=== PATIENT | male | born 1950 | race Caucasian/White ===

== ENCOUNTER → 2016-07-17 | Outpatient (CLI) | payer OTHER ==
[~2016-07-17] MED LIST: AMIO200T PO; ASPI81TA11 PO; COQ-100C2 PO; FLUD.1 PO; HYDR-3516 PO; LIPI40TA PO; PANT40TA3 PO; PRAD150C PO; THERM PO; VENTAER INH; ZOLO50TA PO
--- NOTE | 2016-07-17 12:41 | MG ---
cc: RAVINDER SMITH M.D., DALIA M.D. Lab No: [id number] Date: 07/17/2016 Age: 66 Sex: M Outpatient study with photic stimulation. No hyperventilation. EEG is awake, drowsy. MRI 05/16/2015 showed some diffusion weighted abnormality in the anterior right frontal cortex significant for acute/subacute infarct. He has a history of stroke, COPD, abdominal aortic aneurysm, on anticoagulation, atrial fibrillation, hyperlipidemia. Current medicines are aspirin, albuterol, Lipitor, amiodarone, Pradaxa, hydrocortisone, Zoloft, pantoprazole. DESCRIPTION OF RECORD EKG does look artifactual, cannot determine if sinr8 or not. I do not appreciate any P-waves. However the overall background when there is no movement shows alpha rhythm of 8 Hz, 20 microvolts. There is quite a bit of movement in the feet dispersing artifact throughout. Photic stimulation causes more artifact but there is a mild driving response. No epileptiform features. Hyperventilation was not done. IMPRESSION Overall normal-appearing EEG, however, a lot of artifact but normal alpha rhythm at times without any gross epileptiform features. Clinical correlation. Emani Warner MD DF/VIOLET /12:27 PM /12:35 PM
== END ==
LOC: HEEG 07:25
PROVIDERS: ATTEND Psychiatry & Neurology Vascular Neurology
DX: R41.3 Other amnesia (principal)
CPT/HCPCS: 95819

== ENCOUNTER 2017-05-22 07:11 | Inpatient (IN) | payer OTHER, MEDICARE ==
[2017-05-22] VITALS (9 sets, daily range): BP systolic 104–137; BP diastolic 63–76; PULSE 82–93; RESP 16–18; TEMP 97.6–98.2; O2SAT 93–99
[~2017-05-22] VITALS: Ht 177.8 cm; Wt 85.0 kg
[~2017-05-22 07:11] MED LIST changes: -ASPI81TA11 PO; +ASPI81TA23 PO
[2017-05-22] MEDS ORDERED: IOHEXOL 350 MG/ML 50 ML BTL (for Cath Lab) OTHER ONE (07:12)
[2017-05-22] MEDS: NS 1000P @30 MLS/HR (KVO) IV SCH (07:30)
[2017-05-22] MEDS ORDERED: DICL50TA3 PO (08:11)
[2017-05-22] MEDS ORDERED: COQ-50CA2 PO (08:11)
[2017-05-22] MEDS ORDERED: GABA300C5 PO (08:11)
[2017-05-22] MEDS ORDERED: NITR1SUB3 SL (08:11)
[2017-05-22] MEDS ORDERED: OMEP20TA93 PO (08:11)
[2017-05-22 08:13] LABS: BASOPHIL # 0.2 TH/MM3 (0-0.2); BASOPHIL % 0.9 % (0.0-2.0); EOSINOPHIL # 0.3 TH/MM3 (0-0.4); EOSINOPHIL % 1.7 % (0.0-4.0); HEMATOCRIT 41.1 % (39.0-51.0); LYMPH % 16.8 % (9.0-44.0); LYMPHOCYTE # 2.9 TH/MM3 (1.0-4.8); MEAN CELL VOLUME 89.7 FL (80.0-100.0); MEAN CORPUSCULAR HEMOGLOBIN 30.8 PG (27.0-34.0); MEAN CORPUSCULAR HGB CONC 34.4 % (32.0-36.0); MONO % 10.3 % (0.0-8.0); NEUT % 70.3 % (16.0-70.0); PLATELET COUNT 409 TH/MM3 (150-450); RED BLOOD COUNT 4.58 MIL/MM3 (4.50-5.90); RED CELL DISTRIBUTION WIDTH 13.6 % (11.6-17.2); WHITE BLOOD COUNT 17.1 TH/MM3 (4.0-11.0)
[2017-05-22 08:16] LABS: APTT (PATIENT) 22.2 SEC (24.3-30.1); PROTHROMBIN TIME - PATIENT 10.9 SEC (9.8-11.6)
[2017-05-22 08:17] LABS: HEMO FLAGS AUTO DIFF
[2017-05-22 08:24] LABS: BICARBONATE 25.6 MEQ/L (21.0-32.0); POTASSIUM 4.1 MEQ/L (3.5-5.1)
[2017-05-22 08:53] LABS: PLATELET ESTIMATE SMEAR HIGH (NORMAL); PLATELET MORPHOLOGY CLUMPED (NORMAL); SCAN/DIFF AUTO DIFF CONFIRMED
[2017-05-22] MEDS ORDERED: VERAPAMIL HCL 5 MG/2 ML VIAL ONE (09:51)
[2017-05-22] MEDS ORDERED: HEPARIN SODIUM - IV 10,000 UNITS/10 ML VIAL ONE (09:52)
[2017-05-22] MEDS ORDERED: NITROGLYCERIN INJ 5 ML ONE (09:52)
[2017-05-22] MEDS ORDERED: MIDAZOLAM HCL 2 MG/2 ML VIAL ONE (09:52)
[2017-05-22] MEDS ORDERED: HEPARIN-NS/PF INJ 1,000 ML ONE (09:56)
[2017-05-22] MEDS ORDERED: NITROGLYCERIN 0.4 MG SL 25 TABS/BTL SL ONE (10:43)
[2017-05-22] MEDS ORDERED: NITROGLYCERIN-D5W 50 MG/250 ML 250 ML ONE (10:48)
--- NOTE | 2017-05-22 10:58 | CATHPROC ---
[facility] HIS Report Study Information Study Number Admission Scheduled Start Study Start [id number] May 22 2017 7:11AM 05/22/2017 May 22 2017 9:49AM [facility] Cardiac Catheterization Admit Source Facility Department Other [facility] [employer] Physician and Clinical Staff Initial Harmeet Montiel Auto Body Painter Sherlyn Mckinley RN Other cathlab, cathlab Recorder Mamta Mace,OUTSOLE HANDLER TECH2 Scrub Pal Rose RCIS(BS) Procedures Performed Procedure Location (Site) Vessel Name Coronary Angiograms LCA Left Coronary Coronary Angiograms RCA Right Coronary L Heart Cath Equipment Time Nut Blanker Operator Description Size Mfg Part Number Used/Scraped TRANSDUCER, TRUWAVE [id number] 09:56 FELIX RASHID * Used W/STOCKCOCK *[id number] 10:30 [employer] MEDICAL VASCADE, FR5 CLOSURE SYSTEM FR 5 Used *[id number] INTRODUCER SET, 10:16 [employer] FR 5 [id number] *[id number] Used MICROPUNCTURE, STIFFENED [id number] *[id number] *[id number] 09:56 [employer] INDUSTRIES PACK, CCL CUSTOM * Used *[id number] 09:56 [employer] MEDICAL SHEATH, FR5.5 PRELUDE 11CM FR 5 [id number] Used [id number] 09:56 [employer] WIRE, 3MMJ .035 180CM 180CM Used *[id number] 09:56 NAMIC MANIFOLD, 4 PORT * Used *[id number] 09:56 [employer] OMNIPAQUE, 350 MG, 150ML 150ML [id number] Used [id number] 09:56 Amara BLANKET,WARM AIR CCL * Used *[id number] History: Current Medications Medication Dosage/Unit Route Frequency Last Date/Time Taken ASA NTG SL Statins (any) History: Allergies Allergy Reaction CRESTOR rosuvastatin albuterol History: Risk Factors Family History of Hypertension Dyslipidemia Previous FL Previous Heart Failure Premature CAD Yes No No No No Prior Valve Prior PCI Prior CABG Surgery No No No Cerebrovascular Peripheral Artery Chronic Lung On Dialysis Diabetes Disease Disease Disease No Yes No Yes No History: Arrhythmias Selection Items Atrial fibrillation History: Other Disease Selection Items COPD HTN History: Other Current Smoker Method Packs a Day Years Used Pack Years Yes Cigarettes 1 50 50 Labs Hgb (g/dl) Hct (%) RBC (MIL/MM3) WBC (l/cumm) Platelets (thousands) 11.60-17.00 35.00-51.00 4.00-5.90 4.00-11.00 150.00-450.00 14.0 41 4.5 17.1 409 Glucose (mg/dl) BUN (mg/dl) Creatinine (mg/dl) BUN:Creatinine (1:x) 74.00-106.00 7.00-18.00 0.50-1.30 10.00-20.00 84 13 0.8 16.3 Na (meq/l) K (meq/l) Cl (meq/l) CO2 (mmol/L) Ca (mg/dl) 136.00-145.00 3.50-5.10 98.00-107.00 21.00-32.00 8.50-10.10 139 4.1 106 25.6 8.8 PT (sec) PTT (sec) INR (PTT:PT) 9.80-11.60 24.30-30.10 0.90-1.10 10.9 22.2 1 Medication Medication Total Dose (Bolus/Oral) Medication Total Dosage/Unit 1% XYLOCAINE 20 mL FENTANYL 100 mcg NITROGLYCERIN S/L 0.4 mg VERSED 0.5 mg Medications (Bolus/Oral) Medication Time Given Dosage/Unit Administered By Reason 05/22/2017 10:12:22 FENTANYL 50 mcg Sherlyn Mckinley AM 50 mcg FENTANYL given in lab by Sherlyn Mckinley RN in Left Forearm via Peripheral IV. Ordered by Harmeet Crow 05/22/2017 10:13:45 VERSED 0.5 mg Sherlyn Mckinley AM 0.5 mg VERSED given in lab by Sherlyn Mckinley RN in Left Forearm via Peripheral IV. Ordered by Harmeet Nicholson 05/22/2017 10:14:44 1% XYLOCAINE 20 mL Harmeet Escoto AM 20 mL 1% XYLOCAINE given in lab by Harmeet Escoto in Right Groin via Subcutaneous. Ordered by Harmeet Crow 05/22/2017 10:43:04 FENTANYL 50 mcg Sherlyn Mckinley AM 50 mcg FENTANYL given in lab by Sherlyn Mckinley RN in Left Forearm via Peripheral IV. Ordered by Harmeet Crow 05/22/2017 10:43:34 NITROGLYCERIN S/L 0.4 mg Sherlyn Mckinley AM 0.4 mg NITROGLYCERIN S/L given in lab by Sherlyn Mckinley RN via Sublingual. Ordered by Shante Escoto Medication (Drip) Medication Time Given Dosage/Unit Concentration/Unit Diluent (ml) Solution IV Solutions 05/22/2017 9:53:19 AM 0 mL (IV) 500 NaCl .9 IV Solutions given in lab by Sherlyn Mckinley RN in Left Forearm via Peripheral IV. Pump/Drip Flow = 20 ml/hr using NaCl .9. Ordered by Harmeet Escoto 05/22/2017 10:50:51 NITROGLYCERIN DRIP 33.333 mcg/min 50 mg 250 D5W AM 33.333 mcg/min NITROGLYCERIN DRIP given in lab by Sherlyn Mckinley RN in Left Forearm via Peripheral IV. Pump/Drip Flow = 10 ml/hr using D5W with a concentration of 50 mg in 250 ml. Ordered by Harmeet Escoto Initial Case Assessment Cardiovascular HR NIBP 84 127/74 Edema Present Skin color Skin None Normal Warm Dry Circulatory - Right Pulses Dorsalis Pedis Femoral d 1 Scale (0,1,2,3,4,d) Circulatory - Left Pulses Dorsalis Pedis Femoral d 1 Scale (0,1,2,3,4,d) Neurological State Oriented to time-place- Alert Moves all extremities person Respiration - General Respiration Rate SpO2 (%) (B/min) 18 99 Initial Case Assessment Cardiovascular HR NIBP 86 159/97 Edema Present Skin color Skin None Normal Warm Dry Circulatory - Right Pulses Dorsalis Pedis Femoral d 1 Scale (0,1,2,3,4,d) Circulatory - Left Pulses Dorsalis Pedis Femoral d 1 Scale (0,1,2,3,4,d) Neurological State Oriented to time-place- Alert Moves all extremities person Respiration - General Respiration Rate SpO2 (%) (B/min) 16 98 Chronological Log Time Study Chronological Log 9:51:08 Patient arrived via Bed. 9:51:09 Patient Name, D.O.B, / Armband Verified By R.N. 9:51:10 Consent signed by the physician and the patient and verified by the [employer] staff. 9:53:08 Pre-op and post- op instructions given; patient acknowledges understanding of instructions. 9:53:08 Verbal Stimulation=2 Physical Stimulation=2 Airway=2 Respiration=2 TOTAL=8. (0=absent, 1=li mited, 2=present) 9:53:12 Patient has been NPO for More than 6Hrs. 9:53:13 Skin Breakdown- 9:53:15 Jalil Prominences Protected 9:53:18 A # 22 IV was noted in the Forearm (left). Grade = 0 IV Solutions given in lab by Sherlyn Mckinley, LAVERNE in Left Forearm via Peripheral IV. Pump/Drip Flow = 20 ml/hr using 9:53:19 NaCl .9. Ordered by Harmeet Escoto 9:53:19 History and physical on the chart or being dictated. Vitals capture started with the following parameters, Patient=Adult, Interval=5 min, Initial Pr qzyqcs=129 mmHg, 9:59:41 Deflation Rate=5 mmHg, Cuff placed on Left Arm 10:00:05 Reference ECG taken 10:00:19 HR=84 bpm, IVHC=185/74 mmhg, SpO2=99.0 %, Resp=18 B/min, Pain=0, Ignacio=10, Reid=2 Assessment: Initial Case, HR=84 BPM, WEEF=957/74 mmhg, Edema=None, Color=Normal, Skin = Warm, D ry Right Pulses: Anand Ped=d, Femoral=1 10:00:32 Left Pulses: Anand Ped=d, Femoral=1 Neurological: State=Alert, Ox3, CAGLE Respiration: Resp=18 B/min, SpO2=99 % 10:05:14 HR=85 bpm, IAYX=143/76 mmhg, SpO2=99.0 %, Resp=17 B/min, Pain=0, Ignacio=10, Reid=2 10:05:30 Bilateral groins prepped with 2% chlorhexidine, and draped after a 3 minute waiting time. 10:06:45 Pressure channel 1 zeroed. 10:10:15 HR=86 bpm, SFUN=662/66 mmhg, SpO2=99.0 %, Resp=15 B/min, Pain=0, Ignacio=10, Reid=2 50 mcg FENTANYL given in lab by Sherlyn Mckinley, RN in Left Forearm via Peripheral IV. Ordered by Harmeet Escoto 10:12:22 G. 0.5 mg VERSED given in lab by Sherlyn Mckinley, LAVERNE in Left Forearm via Peripheral IV. Ordered b Harmeet Post 10:13:45 G. Time Out. Correct patient, correct procedure, correct physician, power injector not loaded with contrast with surgical 10:14:06 team present. Time Out Concurred by MD and individual staff in procedure. 10:14:21 Case Start 20 mL 1% XYLOCAINE given in lab by Harmeet Escoto in Right Groin via Subcutaneous. Ordered by Jevon, 10:14:44 Harmeet De La Torre. 10:15:12 HR=82 bpm, GRIU=170/74 mmhg, SpO2=97.0 %, Resp=8 B/min, Pain=0, Ignacio=10, Reid=2 10:15:54 Access site was Right Femoral Artery. A INTRODUCER SET, MICROPUNCTURE, STIFFENED FR 5 was advanced into the Fem Art (right) using the Modified 10:16:02 Seldinger technique. A SHEATH, FR5.5 PRELUDE 11CM FR 5 was exchanged in the Fem Art (right). This was necessary in o rder to achieve 10:16:24 vascular hemostasis. 10:17:53 An injection in the Fem Art (right) was made through the SHEATH, FR5.5 PRELUDE 11CM FR 5. A JR 4.0 INFINITI CATHETER FR 5 was advanced over a wire. OMNIPAQUE, 350 MG, 150ML 150ML was us ed for 10:18:47 injections. Recorded Pressure: LV, HR=88, Condition=Condition 1 10:19:28 (Left Ventricle) LV 140/3/10 Recorded Pressure: LV, HR=86, Condition=Condition 1 10:19:39 (Left Ventricle) LV 125/4/9 Recorded Pressure: LV, Ao, HR=87, Condition=Condition 1 10:19:42 (Left Ventricle) LV 122/4/9, (Aorta) Ao 113/64/85 10:20:15 HR=86 bpm, NSHQ=867/69 mmhg, SpO2=94 %, Resp=17 B/min, Pain=0, Ignacio=10, Reid=2 10:21:22 The RCA was injected and visualized at various angles. OMNIPAQUE, 350 MG, 150ML 150ML used . 10:22:54 Catheter was removed A JL 4.0 INFINITI CATHETER FR 5 was advanced over a wire. OMNIPAQUE, 350 MG, 150ML 150ML was us ed for 10:22:55 injections. Recorded Pressure: Ao, HR=88, Condition=Condition 1 10:23:37 (Aorta) Ao 125/66/91 10:24:15 The LCA was injected and visualized at various angles. OMNIPAQUE, 350 MG, 150ML 150ML used . 10:25:19 HR=87 bpm, CAST=562/65 mmhg, SpO2=95 %, Resp=12 B/min, Pain=0, Ignacio=10, Reid=2 10:29:06 Catheter was removed 10:29:14 Catheter(s) removed without difficulty 10:29:16 VASCADE, FR5 CLOSURE SYSTEM FR 5 placement in the Fem Art (right) 10:30:18 HR=87 bpm, PKWV=051/81 mmhg, SpO2=97.0 %, Resp=17 B/min, Pain=0, Ignacio=10, Reid=2 10:32:03 Case End 10:32:06 No case complications noted. 10:32:07 Cine recording checked. 10:33:07 Bedside Report will be given. 10:33:10 Implantable Device card placed in patient's chart. 10:33:14 A Left Heart Cath was performed. 10:33:43 Sterile dressing applied to site 10:35:19 HR=84 bpm, OMBL=043/81 mmhg, SpO2=97.0 %, Resp=18 B/min, Pain=0, Ignacio=10, Reid=2 10:35:26 Vitals capture stopped. 50 mcg FENTANYL given in lab by Sherlyn Mckinley, RN in Left Forearm via Peripheral IV. Ordere d by Harmeet Escoto 10:43:04 G. 10:43:34 0.4 mg NITROGLYCERIN S/L given in lab by Sherlyn Mckinley, RN via Sublingual. Ordered by Harmeet Garcia Vitals capture started with the following parameters, Patient=Adult, Interval=5 min, Initial P qikketp=660 mmHg, 10:43:46 Deflation Rate=5 mmHg, Cuff placed on Left Arm 10:44:23 HR=86 bpm, BWTZ=690/97 mmhg, SpO2=98 %, Resp=16 B/min, Pain=0, Ignacio=10, Reid=2 Assessment: Initial Case, HR=86 BPM, KPDX=242/97 mmhg, Edema=None, Color=Normal, Skin = Warm, Dry Right Pulses: Anand Ped=d, Femoral=1 10:46:45 Left Pulses: Anand Ped=d, Femoral=1 Neurological: State=Alert, Ox3, CAGLE Respiration: Resp=16 B/min, SpO2=98 % 10:49:22 HR=86 bpm, GMLC=152/83 mmhg, SpO2=97 %, Resp=16 B/min, Pain=0, Ignacio=10, Reid=2 33.333 mcg/min NITROGLYCERIN DRIP given in lab by Sherlyn Mckinley, RN in Left Forearm via Per ipheral IV. 10:50:51 Pump/Drip Flow = 10 ml/hr using D5W with a concentration of 50 mg in 250 ml. Ordered by Harmeet Solorio 10:51:38 Vitals capture stopped. 10:54:45 Patient moved to [facility] End Study - Contrast Media Used In Study Contrast Total Opened (mL) Total Used (mL) Total Wasted (mL) Omnipaque 50 50 0 End Study - Maximum Contrast Load Max Contrast Load (mL) 498.9 End Study - Radiation Exposure Fluoro Time (minutes) 2.5 End Study - Patient Disposition Complications Transferred To Telemetry Bed
--- NOTE | 2017-05-22 11:21 | MA ---
cc: HARMEET CELAYA DO DATE 05/22/2017 PROCEDURE Left heart catheterization, coronary angiogram, moderate sedation 20 minutes. PREPROCEDURE DIAGNOSIS Unstable angina. POSTPROCEDURE DIAGNOSIS Severe multivessel coronary artery disease. MEDICATIONS 1. Fentanyl 100 mcg 2. Versed 0.5 mg 3. Nitro sublingual 4. Nitro drip CONTRAST 50 cc FLUOROSCOPY 2.5 minutes ANESTHESIA Moderate sedation 20 minutes ESTIMATED BLOOD LOSS 10 CC PROCEDURAL SUMMARY Francisco Javier Swartz is a pleasant 67-year-old male who I see in the office for unstable angina. Because of his high-risk features, it was felt that he should undergo cardiac catheterization in lieu of stress testing. The risks, benefits and alternatives were explained to him and he consented as such. He was brought to the lab and prepped in the usual sterile fashion. The right femoral artery was accessed using a modified Seldinger technique and placement of a 5-Albanian sheath. This was easily aspirated and flushed. A JR-4 was advanced over a J-wire to the ascending aorta and across the aortic valve for measurement of left ventricular pressure. JR-4 was pulled back across the aortic valve showing no significant gradient of aortic stenosis. JR-4 was used for selective angiography of the right coronary artery system. This was exchanged out for a JL-4 which was used for selective angiography of the left coronary artery system. JL-4 was removed over a J-wire. A Vascade closure was then placed in the right femoral for closure of his arteriotomy site. Postprocedure, the patient started having left arm pain, jaw pain and chest pain. He was given one nitroglycerin and then started on a nitroglycerin drip. After the nitroglycerin, started on a nitroglycerin drip, he no longer had chest pain, jaw pain or arm pain. 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 IMPRESSIONS 1. Left main normal sized vessel with adequate reflux and no significant disease. It bifurcates into an LAD and Circumflex. 2. LAD 99% occluded in the proximal portion as a takeoff of the first diagonal. Distally it has good runoff. It gives off one major diagonal which has a 90% stenosis in the ostium. 3. Left circumflex. A normal size vessel with mild luminal irregularities throughout. It gives off one large obtuse marginal with an 80-90% lesion in the proximal portion. 4. The RCA is 100% occluded in the proximal portion with collaterals noted from the left side. The right coronary artery does supply some collaterals to the distal LAD. 5. LVEDP 9. IMPRESSIONS 1. Severe multivessel coronary artery disease 2. Peripheral artery disease 3. Unstable angina RECOMMENDATIONS 1. Mr. Swartz appears to have severe multivessel coronary artery disease and will be recommended coronary artery bypass grafting. 2. CT surgery will be consulted for consideration of CABG. 3. Because of his significant chest pain postoperatively, he has been started on a nitroglycerin drip and I feel that he should stay in the hospital for the procedure. 4. He may need a heparin drip depending on if he stabilizes on nitroglycerin. 5. Further recommendations will be made after CT surgery evaluation. Thank you for allowing me to see Francisco Javier Swartz. If there are any questions, please do not hesitate to call. Harmeet Celaya DO VGP/DJL /10:56 AM /11:15 AM
[2017-05-22] MEDS ORDERED: oxyCODONE/ACETAMINOPHEN 5 MG/325 MG TAB PO PRN ×2 (13:00)
[2017-05-22] MEDS ORDERED: NITROGLYCERIN-D5W 50 MG/250 ML 250 ML IV PRN (13:00)
[2017-05-22] MEDS: GABAPENTIN 300 MG CAP PO SCH ×2 (13:00→17:50)
--- NOTE | 2017-05-22 13:05 | MH ---
cc: HARMEET CELAYA DO DATE OF ADMISSION: 05/22/2017 CHIEF COMPLAINT Unstable angina/chest pain. HISTORY OF CHIEF COMPLAINT Francisco Javier Swartz is a pleasant 67-year-old male whom I see in the office, who was having significant chest pain and angina which radiated to his jaw and left arm. He was taking nitroglycerin nightly. Since then I placed him on Imdur and Norvasc and this helped somewhat but he was still taking a significant amount of nitroglycerin. Because of this he underwent cardiac catheterization on May 22, 2017. During the cardiac catheterization he was found to have multivessel coronary artery disease with a 99% occluded LAD, a diagonal with 90% disease, left circumflex with an 80-90% lesion, RCA 100% occluded. Because of this he was recommended cardiothoracic surgery. Postprocedure he started having significant chest pain radiating to his left arm and jaw. He was given nitroglycerin sublingual which helped somewhat and so then he was started on a nitroglycerin drip. Postprocedure on 10 mcg per minute of nitroglycerin he is doing well without complaints. PAST MEDICAL HISTORY 1. Coronary artery disease. 2. Peripheral artery disease. 3. Atrial fibrillation. 4. History of prostate cancer. 5. COPD. 6. History of CVA. 7. Emphysema. 8. History of lung cancer (May 2016). PAST SURGICAL HISTORY 1. Cardiac catheterization as above. 2. Colonoscopy. 3. Cystoscopy. 4. Lip surgery. 5. Left sided lobectomy for lung cancer (May 2016). ALLERGIES 1. ALBUTEROL. 2. CRESTOR. MEDICATIONS 1. Pradaxa 150 mg b.i.d. (last taken May 19, 2017). 2. Lipitor 40 mg every night. 3. Nitro sublingual as needed. 4. Aspirin 81 mg daily. 5. Diclofenac 50 mg daily. 6. Hydrocodone/acetaminophen 5/325 every 4 hours as needed for pain. 7. Gabapentin 300 mg b.i.d. 8. Zoloft 50 mg daily. 9. Omeprazole 20 mg daily. 10. Coenzyme Q10; 100 mg daily. FAMILY HISTORY Denies sudden cardiac within the family. SOCIAL HISTORY The patient drinks occasionally. He smokes one-pack of cigarettes a day. REVIEW OF SYSTEMS 14-systems were reviewed including osteopathic pertinent positives and negatives above, otherwise negative. PHYSICAL EXAMINATION VITAL SIGNS: Temperature 97.6, heart rate 88, blood pressure 134/75, respirations 17, pulse ox 99% on room air. GENERAL: The patient appears well, in no acute distress, alert awake and oriented x3. HEENT: Extraocular muscles intact. Mucous membranes moist. NECK: Supple. No JVD at 45 degrees. No carotid bruits heard bilaterally. Carotid upstroke is brisk in nature. HEART: Heart is regular rate and rhythm. Positive first and second heart sounds with a 1/6 crescendo-decrescendo murmur to the right sternal border. LUNGS: Lungs have decreased breath sounds bilaterally but no overt wheezes, rales or rhonchi. ABDOMEN: Abdomen is soft, nontender, nondistended. No organomegaly noted. EXTREMITIES: Extremities have decreased pulses bilaterally with the right lower extremity pulse being somewhat greater than the left. NEUROLOGIC: No focal deficits. SKIN: Warm, dry and intact. OSTEOPATHIC: No kyphoscoliosis, lordosis or paraspinal tender points. LABORATORY FINDINGS Hemoglobin 14.1, hematocrit 41.1, platelets 409. INR 1.0, potassium 4.1, BUN 13, creatinine 0.83. IMPRESSION 1. Severe multivessel coronary artery disease. 2. Unstable angina requiring nitroglycerin drip. 3. History of lung cancer status post lobectomy (May 2016). 4. Peripheral artery disease. 5. History of atrial fibrillation. 6. History of CVA. 7. Echocardiogram (April 18, 2017): Ejection fraction of 55-60%, moderate tricuspid regurgitation, mild mitral regurgitation, mild aortic regurgitation, grade 1 diastolic dysfunction, mild pulmonary hypertension. RECOMMENDATIONS 1. Mr. Swartz presented with unstable angina to my office and has since undergone cardiac catheterization. During this he was found to have multivessel disease. Because of his chest pain at rest I have since started him on a nitroglycerin drip and I feel that he needs to stay in the hospital inpatient until he is able to undergo surgery. 2. CT surgery has been consulted and they will see him for consideration of coronary artery bypass grafting. 3. He will continue on a nitroglycerin drip at this time and this may be titrated up to help with chest pain. 4. He may need to be placed on a heparin drip if he does have further chest pain. 5. Further recommendations will be made after seen by CT surgery. Thank you for allowing me to see Francisco Javier Swartz, if there are any questions please do not hesitate to call. Harmeet Celaya DO VGP/TLL /12:33 PM /12:50 PM
[2017-05-22] MEDS: MORPHINE SULFATE 2 MG/ML INJ IV PUSH PRN ×2 (13:14→16:39)
[2017-05-22] MEDS ORDERED: METOPROLOL TARTRATE 25 MG TAB PO SCH (15:00)
[2017-05-22] MEDS ORDERED: CHLORHEXIDINE GLUCONATE 4% SOLN 120 ML BTL TOPICAL SCH (15:00)
[2017-05-22] MEDS ORDERED: DEXTROSE 50% IN WATER 50 ML VIAL(D50) IV PUSH PRN (15:00)
[2017-05-22] MEDS ORDERED: ceFAZolin 2 GM PREMIX 50 ML IV SCH (15:00)
[2017-05-22] MEDS ORDERED: SODIUM CHLORIDE 0.9% FLUSH 10 ML FLUSH IV FLUSH PRN (15:00)
[2017-05-22] MEDS ORDERED: PAPAVERINE INJ 60 MG, NITROGLYCERIN INJ 100 MCG, DILTIAZEM INJ 100 MG in SODIUM CHLORID... IRRIGATION SCH (15:00)
[2017-05-22] MEDS ORDERED: CEFAZOLIN INJ 500 MG in SODIUM CHLORIDE 0.9% IRR BTL 500 ML IRRIGATION SCH (15:00)
[2017-05-22] MEDS ORDERED: INSULIN REGULAR (IV INFUSION) 100 UNITS in SODIUM CHLORIDE 0.9% INJ 99 ML IV PRN (15:00)
--- NOTE | 2017-05-22 15:02 | PD.CAR.PN ---
CVT Progress Note Subjective/Hospital Course: sts data discussed with pt and spouse RISK SCORES About the STS Risk Calculator Procedure: CAB Only Risk of Mortality: 1.301% Morbidity or Mortality: 15.857% Long Length of Stay: 5.43% Short Length of Stay: 40.82% Permanent Stroke: 1.765% Prolonged Ventilation: 11.969% DSW Infection: 0.429% Renal Failure: 1.978% Reoperation: 5.647% Objective: Vital Signs Date Time Temp Pulse Resp B/P (MAP) Pulse Ox O2 Delivery O2 Flow Rate FiO2 05/22/17 11:00 94 Room Air 05/22/17 07:59 97.6 88 17 134/75 (94) 99 Labs: Laboratory Tests Test 05/22/17 07:40 White Blood Count 17.1 TH/MM3 (4.0-11.0) Red Blood Count 4.58 MIL/MM3 (4.50-5.90) Hemoglobin 14.1 GM/DL (13.0-17.0) Hematocrit 41.1 % (39.0-51.0) Mean Corpuscular Volume 89.7 FL (80.0-100.0) Mean Corpuscular Hemoglobin 30.8 PG (27.0-34.0) Mean Corpuscular Hemoglobin Concent 34.4 % (32.0-36.0) Red Cell Distribution Width 13.6 % (11.6-17.2) Platelet Count 409 TH/MM3 (150-450) Mean Platelet Volume 8.1 FL (7.0-11.0) Neutrophils (%) (Auto) 70.3 % (16.0-70.0) Lymphocytes (%) (Auto) 16.8 % (9.0-44.0) Monocytes (%) (Auto) 10.3 % (0.0-8.0) Eosinophils (%) (Auto) 1.7 % (0.0-4.0) Basophils (%) (Auto) 0.9 % (0.0-2.0) Neutrophils # (Auto) 12.0 TH/MM3 (1.8-7.7) Lymphocytes # (Auto) 2.9 TH/MM3 (1.0-4.8) Monocytes # (Auto) 1.8 TH/MM3 (0-0.9) Eosinophils # (Auto) 0.3 TH/MM3 (0-0.4) Basophils # (Auto) 0.2 TH/MM3 (0-0.2) CBC Comment AUTO DIFF Differential Comment AUTO DIFF CONFIRMED Platelet Estimate HIGH (NORMAL) Platelet Morphology Comment CLUMPED (NORMAL) Prothrombin Time 10.9 SEC (9.8-11.6) Prothromb Time International Ratio 1.0 RATIO Activated Partial Thromboplast Time 22.2 SEC (24.3-30.1) Blood Urea Nitrogen 13 MG/DL (7-18) Creatinine 0.83 MG/DL (0.60-1.30) Random Glucose 84 MG/DL (74-106) Calcium Level 8.8 MG/DL (8.5-10.1) Sodium Level 139 MEQ/L (136-145) Potassium Level 4.1 MEQ/L (3.5-5.1) Chloride Level 106 MEQ/L (98-107) Carbon Dioxide Level 25.6 MEQ/L (21.0-32.0) Anion Gap 7 MEQ/L (5-15) Estimat Glomerular Filtration Rate 93 ML/MIN (>89) Result Diagram: 05/22/17 0740 05/22/17 0740 Alicia Morgan May 22, 2017 15:02
--- NOTE | 2017-05-22 16:45 | RADRPT ---
EXAM DATE/TIME: 05/22/2017 15:30 [facility] COMPARISON: No previous studies available for comparison. INDICATIONS : Pre op cardiac surgery. MEDICAL HISTORY : Hypercholesterolemia. Stroke. Gastroesophageal reflux disease. A-fib. COPD. AAA. Lung cancer. Prostat e cancer. Squamous cell cancer. SURGICAL HISTORY : Abdominal aortic aneurysm repair. Iliac stent. Left lung needle biopsy. Left lung removed. ENCOUNTER: Initial ACUITY: 1 day PAIN SCORE: 6/10 LOCATION: Bilateral legs. TECHNIQUE: Venous ultrasound of the left and right leg was performed from the inguinal ligament to the proximal calf. Real-time, color Doppler and spectral tracing, compression and augmentation techniques were us ed. FINDINGS: RIGHT LEG: There is normal compressibility of the deep venous system from the inguinal region to the proximal ca lf. No echogenic clot is seen in the lumen of the common femoral, femoral, popliteal, and posterior tibial veins. There is a normal response of the venous system to proximal and distal augmentation an d respiration. LEFT LEG: There is normal compressibility of the deep venous system from the inguinal region to the proximal ca lf. No echogenic clot is seen in the lumen of the common femoral, femoral, popliteal, and posterior tibial veins. There is a normal response of the venous system to proximal and distal augmentation an d respiration. CONCLUSION: No evidence of deep venous thrombosis within the lower extremities. Fidel Salazar MD on May 22, 2017 at 16:43 Board Certified Radiologist. This report was verified electronically.
--- NOTE | 2017-05-22 17:07 | RADRPT ---
EXAM DATE/TIME: 05/22/2017 15:58 [facility] COMPARISON: US VENOUS MAPPING,LOW EXT,BILAT, May 22, 2017, 15:38. INDICATIONS : Pre op cardiac surgery. MEDICAL HISTORY : Stroke. Gastroesophageal reflux disease. Hypercholesterolemia. A-fib. COPD. AAA. Lung cancer. Prostat e cancer. Squamous cell cancer. SURGICAL HISTORY : Abdominal aortic aneurysm repair. Iliac stent. Left lung needle biopsy. Left lung removed. ENCOUNTER: Initial ACUITY: 1 day PAIN SCORE: 4/10 LOCATION: Bilateral neck PEAK SYSTOLIC VELOCITIES (cm/sec): ICA/CCA RATIO: Right: 2.3 Left: 2.0 ICA: Right: 118 Left: 106 CCA: Right: 50 Left: 52 ECA: Right: 87 Left: 69 VERTEBRAL: Right: 77 antegrade Left: 58 antegrade Elevated flow velocities and ICA/CCA ratios have been found to correlate with increased degrees of vessel stenosis, calculated as percentage of diameter relative to a normal segment of distal ICA/CCA FINDINGS: RIGHT CAROTID: There is moderate atherosclerotic plaquing at the bifurcation. The waveform is within normal limits. LEFT CAROTID: There is moderate calcified atherosclerotic plaque at the bifurcation. The waveform is within normal limits. VERTEBRAL ARTERIES: Antegrade flow is seen in both vertebral arteries. MISCELLANEOUS: None. CONCLUSION: 1. Calcified atherosclerotic plaquing at the bifurcations. 2. Velocities would suggest possible stenosis on the right in the range of 50%. 3. No hemodynamically significant lesion identified on the left. Napoleon Youssef MD on May 22, 2017 at 17:03 Board Certified Radiologist. This report was verified electronically.
--- NOTE | 2017-05-22 17:21 | RADRPT ---
EXAM DATE/TIME: 05/22/2017 15:38 [facility] COMPARISON: US LEG BILATERAL VENOUS DOPPLER, May 22, 2017, 15:30. INDICATIONS : Pre op cardiac surgery. MEDICAL HISTORY : Hypercholesterolemia. Stroke. Gastroesophageal reflux disease. A-fib. COPD. AAA. Lung cancer. Prostat e cancer. Squamous cell cancer. SURGICAL HISTORY : Abdominal aortic aneurysm repair. Iliac stent. Left lung needle biopsy. Left lung removed. ENCOUNTER: Initial ACUITY: 1 day PAIN SCORE: 6/10 LOCATION: Bilateral legs. GREATER SAPHENOUS VEIN THIGH: PROXIMAL: Right 5 mm Left 7 mm MID: Right 3 mm Left 4 mm DISTAL: Right 2 mm Left 4 mm CALF: PROXIMAL: Right 2 mm Left 2 mm MID: Right 3 mm Left 3 mm DISTAL: Right 3 mm Left 2 mm FINDINGS: The venous system of the lower extremities are patent by color Doppler imaging. Measurements of the leg veins (in mm) are listed above. CONCLUSION: 1. Vein mapping as above. Napoleon Youssef MD on May 22, 2017 at 17:19 Board Certified Radiologist. This report was verified electronically.
--- NOTE | 2017-05-22 17:22 | MB ---
cc: SAL AMADOR MD DATE OF CONSULTATION: 05/22/2017 REASON FOR CONSULTATION: A 67-year-old male known to our service recently experiencing significant chest pain and angina which radiated to his Jaw and left arm, has been taking nitro on a regular basis. He was placed on Imdur and Norvasc by his office technologist. He was then brought in as an outpatient for cardiac catheterization which was completed today which showed multivessel disease 90-90% occluded LAD and diagonal with 90%. The left circ 80-90%. The RCA was 100% occluded. He has had a prior echocardiogram in Dr. Escoto's office which showed ejection fraction of 55%. We were consulted to evaluate for coronary artery bypass. The patient's primary care physician is Dr. Francisco Javier Suggs. 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 At that time he underwent left thoracotomy, left pneumonectomy, mediastinal lymph node dissection, 05/09/2016 with redo exploration for bleeding and repair of the pulmonary artery laceration on 05/10/[address] Villagran. The patient unfortunately had a stroke postoperatively had some left-sided hemiparesis and some speech deficit. The left hemiparesis has improved tremendously. He underwent an extensive rehabilitation. Other history includes atrial fibrillation, Bullous emphysema chronic obstructive pulmonary disease, CA of the prostate Peripheral arterial disease. PAST SURGICAL HISTORY: 1. Surgeries include right iliac stent. 2. He has had the above left thoracotomy and left pneumonectomy. 3. Colonoscopy. 4. Cystoscopy. 5. History of resection of squamous cell on the lower lip 6. Cataract surgery. ALLERGIES CRESTOR VENTOLIN MEDICATIONS home medications include 1. Aspirin. 2. Atorvastatin 3. Gabapentin 4. Hydrocodone. 5. Nitro 6. Prodaxa which his last dose was on the . FAMILY HISTORY: family history of myocardial infarction in his sister. SOCIAL HISTORY: The patient is , still continues to smoke one pack per day, no alcohol. REVIEW OF SYSTEMS IN GENERAL: No night sweats, fever, heat and cold intolerance. SKIN: No psoriasis, itching or hives. HEAD, EYES, EARS, NOSE, AND THROAT: No blurred vision, hearing loss. RESPIRATORY: No cough, shortness of breath. CARDIOVASCULAR SYSTEM: As above in HPI. GASTROINTESTINAL: No diarrhea, vomiting. GENITOURINARY: No burning frequency, urgency CENTRAL NERVOUS SYSTEM: No history of transient ischemic attack, cerebrovascular accident, seizure disorder. ENDOCRINOLOGY: No history of diabetes. PHYSICAL EXAMINATION: IN GENERAL: On exam blood pressure 130/70, heart rate of 88, O2 sat 99 on room air. IN GENERAL: Patient is awake, alert, no acute distress. HEAD, EYES, EARS, NOSE, AND THROAT: Head is normocephalic, atraumatic. Pupils equal and reactive. He has very slight right-sided facial droop. LUNGS: Clear to auscultation. No wheezes, rales or rhonchi. CARDIOVASCULAR SYSTEM: S1-S2 regular rate and rhythm. 1/6 systolic murmur at rest, on his right sternal border. ABDOMEN: Soft, nontender. No masses or organomegaly. EXTREMITIES: Decreased pulses bilaterally. The right being greater than the left. NEUROLOGICALLY: Alert and oriented times three. Very faint supervisor packing decreased on the left upper extremity. LABORATORY FINDINGS Shows Hemoglobin 14, hematocrit of 41, white cell count of 17, platelet count 409, sodium 139, potassium 4.1, BUN 13, creatinine 0.83, INR 1.0. Radiological exams still pending. Chest x-ray, Ultrasound and vein mapping. IMPRESSION 1. This is a gentleman with chest pain, coronary artery disease status post heart catheterization multivessel disease, ejection fraction 55%. At this time the cath films have been evaluated by Dr. Sal Amador. Plan will be for off-pump coronary artery bypass graft x3 with endoscopic harvesting, left atrial appendage excision in the a.m. He has been off as per ductus for 3 days at this time. He will need continued physical therapy postoperatively. 2. He also has; History of left lung cancer post left thoracotomy, left pneumonectomy which was non metastatic. At that time he was followed by [facility]. We will recheck his pulmonary function testing, further planning as per Dr. Sal Amador. Dictated by MAYTE Darnell Sal MCCOLLUM/gerardo /3:18 PM /7:40 AM
[2017-05-22 18:12] LABS: BLOOD, URINE NEG (NEG); GLUCOSE,URINE NEG (NEG); KETONE, URINE NEG (NEG); NITRITE,URINE NEG (NEG); URINE COLOR LIGHT-YELLOW (YELLW/STRAW)
[2017-05-22 18:16] LABS: COMMENT (UR) CULT NOT INDICATED; CULTURE IF INDICATED CULT NOT INDICATED
[2017-05-22] MEDS: ATORVASTATIN 40 MG TAB PO SCH (20:13)
[2017-05-22] MEDS ORDERED: SODIUM CHLORIDE 0.9% FLUSH 10 ML FLUSH IV FLUSH SCH (21:00)
--- NOTE | 2017-05-22 22:17 | RADRPT ---
EXAM DATE/TIME: 05/22/2017 21:51 [facility] COMPARISON: CT PULMONARY ANGIOGRAM, May 22, 2016, 16:20. CHEST PA & LAT, June 08, 2016, 18:15. INDICATIONS : Pre op CABG. Evaluate for pneumothorax, pneumonia, or communicable diseases. MEDICAL HISTORY : Carcinoma, lung. Chronic obstructive pulmonary disease. Gastroesophageal reflux disease. SURGICAL HISTORY : Thoracotomy ENCOUNTER: Initial ACUITY: 1 day PAIN SCORE: 0/10 LOCATION: Bilateral chest FINDINGS: There is opacification of the left hemithorax. There is shift of the heart and mediastinal structures towards the left. This presumably from prior left pneumonectomy. There is a calcified granuloma in t he right upper lung. The right lung is free of focal consolidation. CONCLUSION: Status post left pneumonectomy. Right lung is grossly clear. Garo Silva MD on May 22, 2017 at 22:13 Board Certified Radiologist. This report was verified electronically.
[2017-05-22 22:27] LABS: HEMOGLOBIN A1a 1.1 %; HEMOGLOBIN A1b 0.9 %; HEMOGLOBIN Ao 84.7 %; HEMOGLOBIN P3 5.3 %
[2017-05-23] VITALS (18 sets, daily range): BP systolic 98–144; BP diastolic 51–69; PULSE 76–93; RESP 14–22; TEMP 97.5–98.6; O2SAT 94–100
[2017-05-23] MEDS ORDERED: POVIDONE IODINE 5% (ANTISEPSIS KIT) 4 APPLICATIONS EACH NARE PRN (02:45)
[2017-05-23] MEDS ORDERED: CHLORHEXIDINE GLUCONATE 2 % 1 PACK (2 CLOTHS) TOPICAL PRN (02:45)
[2017-05-23] MEDS ORDERED: LACTATED RINGER'S 1000 ML IV PRN (02:45)
[2017-05-23 05:10] LABS: BASOPHIL % 0.3 % (0.0-2.0); EOSINOPHIL # 0.2 TH/MM3 (0-0.4); EOSINOPHIL % 2.3 % (0.0-4.0); HEMATOCRIT 38.2 % (39.0-51.0); LYMPH % 18.8 % (9.0-44.0); LYMPHOCYTE # 1.7 TH/MM3 (1.0-4.8); MEAN CELL VOLUME 88.5 FL (80.0-100.0); MEAN CORPUSCULAR HEMOGLOBIN 32.4 PG (27.0-34.0); MONO % 11.1 % (0.0-8.0); NEUT % 67.5 % (16.0-70.0); PLATELET COUNT 332 TH/MM3 (150-450); RED BLOOD COUNT 4.32 MIL/MM3 (4.50-5.90); RED CELL DISTRIBUTION WIDTH 13.5 % (11.6-17.2); WHITE BLOOD COUNT 8.9 TH/MM3 (4.0-11.0)
[2017-05-23 05:15] LABS: BICARBONATE 25.4 MEQ/L (21.0-32.0); POTASSIUM 3.8 MEQ/L (3.5-5.1)
[2017-05-23 05:22] LABS: HEMO FLAGS AUTO DIFF; MEAN CORPUSCULAR HGB CONC 36.6 % (32.0-36.0)
[2017-05-23] MEDS ORDERED: VANCOMYCIN HCL 1000 MG VIAL ONE (06:11)
[2017-05-23] MEDS ORDERED: ceFAZolin 2 GM PREMIX 50 ML ONE (06:11)
[2017-05-23] MEDS ORDERED: HEPARIN SODIUM - IV 10,000 UNITS/10 ML VIAL ONE (06:12)
[2017-05-23] MEDS ORDERED: HEPARIN SODIUM - SQ 10,000 UNITS/ML VIAL ONE ×2 (06:55→07:20)
[2017-05-23] MEDS: NS 1000P @30 MLS/HR (KVO) IV SCH (07:30)
[2017-05-23 07:50] LABS: SCAN/DIFF AUTO DIFF CONFIRMED
[2017-05-23] MEDS ORDERED: POTASSIUM CHLORIDE 40 MEQ/20 ML VIAL ONE (08:00)
[2017-05-23] MEDS ORDERED: PANTOPRAZOLE SOD 20 MG DELAYED RELEASE TAB PO SCH (09:00)
[2017-05-23] MEDS ORDERED: ASPIRIN EC 81 MG TABEC PO SCH (09:00)
[2017-05-23] MEDS ORDERED: DEXMEDETOMIDINE HCL 200 MCG/2 ML VIAL ONE (10:27)
[2017-05-23] MEDS ORDERED: ceFAZolin INJ 1,000 MG VIAL ONE (11:25)
[2017-05-23] MEDS ORDERED: LACTATED RINGER'S 1000 ML INJ 500 ML IV PRN (11:48)
[2017-05-23] MEDS: DOBUTamine PREMIX DRIP 250 ML IV SCH (11:48)
[2017-05-23] MEDS ORDERED: Post-op Orders (for Pharmacy) MISC OTHER ONE (12:00)
[2017-05-23] MEDS ORDERED: ACETAMINOPHEN 650 MG SUPP RECTAL PRN (12:00)
[2017-05-23] MEDS ORDERED: NORMOSOL R INJ 2,000 ML IV ONE (12:00)
[2017-05-23] MEDS ORDERED: MAGNESIUM SULFATE INJ 2 GM in SODIUM CHLORIDE 0.9% INJ 100 ML IV PRN ×4 (12:00)
[2017-05-23] MEDS ORDERED: MORPHINE SULFATE 4 MG/ML INJ IV PUSH PRN (12:00)
[2017-05-23] MEDS ORDERED: MIDAZOLAM HCL 2 MG/2 ML VIAL IV ONE (12:00)
[2017-05-23] MEDS ORDERED: POTASSIUM CHLORIDE 20 MEQ CONTROLLED RELEASE TAB PO PRN ×2 (12:00)
[2017-05-23] MEDS ORDERED: PROTAMINE SULFATE 250 MG/25 ML VIAL IV ONE (12:00)
[2017-05-23] MEDS ORDERED: PHENYLEPH/NS 1000 MCG/10 ML SYR IV ONE (12:00)
[2017-05-23] MEDS ORDERED: HEPARIN SODIUM - SQ 10,000 UNITS/ML VIAL SQ ONE (12:00)
[2017-05-23] MEDS ORDERED: NITROGLYCERIN-D5W 50 MG/250 ML 250 ML IV PRN (12:00)
[2017-05-23] MEDS ORDERED: ePHEDrine/NS 25 MG/5 ML SYR IV ONE (12:00)
[2017-05-23] MEDS ORDERED: VECURONIUM BROMIDE 10 MG VIAL IV ONE (12:00)
[2017-05-23] MEDS ORDERED: ONDANSETRON HCL 4 MG/2 ML VIAL IV PUSH PRN (12:00)
[2017-05-23] MEDS ORDERED: DEXMEDETOMIDINE INJ 200 MCG in SODIUM CHLORIDE 0.9% INJ 50 ML IV PRN (12:00)
[2017-05-23] MEDS ORDERED: CLEVIDIPINE INJ 50 ML IV PRN (12:00)
[2017-05-23] MEDS ORDERED: CALCIUM CHLORIDE 10% SOLN 1 GRAM/10 ML SYR IV ONE (12:00)
[2017-05-23] MEDS ORDERED: DEXTROSE 50% IN WATER 50 ML VIAL(D50) IV PUSH PRN (12:00)
[2017-05-23] MEDS ORDERED: RESP: RACEPINEPHRINE 2.25% 0.5 ML NEB NEB PRN (12:00)
[2017-05-23] MEDS ORDERED: ACETAMINOPHEN 325 MG TAB PO PRN (12:00)
[2017-05-23] MEDS ORDERED: RESP: ALBUTEROL 2.5 MG/IPRATROPIUM 0.5 MG NEB (PRN) NEB (12:00)
[2017-05-23] MEDS ORDERED: POTASSIUM CHLOR 20 MEQ PREMIX 100 ML IV PRN ×3 (12:00)
[2017-05-23] MEDS ORDERED: PHENYLEPHRINE HCL 10 MG/ML VIAL IV ONE (12:00)
[2017-05-23] MEDS ORDERED: DOPamine INJ PREMIX 500 ML IV PRN (12:00)
[2017-05-23] MEDS ORDERED: SODIUM BICARBONATE 8.4% SOLN 50 MEQ/50 ML VIAL IV PUSH PRN ×2 (12:00)
[2017-05-23] MEDS ORDERED: ARTIFICIAL TEARS OPTH OINT 3.5 APPLIC/3.5 GM TUBO EACH EYE ONE (12:00)
[2017-05-23] MEDS ORDERED: ALBUMIN 5% INJ 250 ML IV PRN (12:00)
[2017-05-23] MEDS ORDERED: CALCIUM CHLORIDE 10% 1 GRAM/10 ML VIAL IV PUSH PRN (12:00)
[2017-05-23] MEDS ORDERED: SODIUM CHLORIDE 0.9% FLUSH 10 ML FLUSH IV FLUSH PRN (12:00)
[2017-05-23] MEDS ORDERED: hydrALAZINE HCL 20 MG/ML VIAL IV PUSH PRN (12:00)
[2017-05-23] MEDS ORDERED: MAGNESIUM SULFATE 1 GM/2 ML VIAL IV ONE (12:00)
[2017-05-23] MEDS ORDERED: METOPROLOL TARTRATE 5 MG/5 ML VIAL IV PUSH PRN (12:00)
[2017-05-23] MEDS ORDERED: fentaNYL CITRATE 2500 MCG/50 ML VIAL IV ONE (12:00)
[2017-05-23] MEDS ORDERED: MEPERIDINE HCL 25 MG/ML VIAL IV PUSH PRN (12:00)
--- NOTE | 2017-05-23 12:51 | RADRPT ---
EXAM DATE/TIME: 05/23/2017 12:37 [facility] COMPARISON: CHEST SINGLE AP, May 25, 2016, 5:11. INDICATIONS : Post CABG. MEDICAL HISTORY : Carcinoma, lung. Chronic obstructive pulmonary disease. SURGICAL HISTORY : Pneumonectomy. ENCOUNTER: Initial ACUITY: 1 day PAIN SCORE: Non-responsive. LOCATION: Bilateral chest FINDINGS: Patient status post CABG. Support devices are in place. There is good aeration of the right lung with some mild atelectasis in the right lung base. The left hemithorax remains completely opacified. This is unchanged compared to the prior examination. No evidence of pneumothorax. The bony structures are stable. CONCLUSION: Status post CABG with some atelectasis in the right lung base. Francisco Javier Campbell MD on May 23, 2017 at 12:49 Board Certified Radiologist. This report was verified electronically.
[2017-05-23] MEDS: ACETAMINOPHEN 1000 MG/100 ML 100 ML IV SCH ×3 (13:31→23:31)
[2017-05-23] MEDS ORDERED: CALCIUM CHLORIDE INJ 1 GM in SODIUM CHLORIDE 0.9% INJ 100 ML IV PRN (14:00)
[2017-05-23] MEDS ORDERED: INSULIN REGULAR (IV INFUSION) 100 UNITS in SODIUM CHLORIDE 0.9% INJ 99 ML IV PRN (14:00)
[2017-05-23] MEDS ORDERED: PHENYLEPHRINE INJ 40 MG in DEXTROSE 5% IN WATE 500 ML INJ 496 ML IV PRN ×2 (14:00)
--- NOTE | 2017-05-23 14:53 | PD.OP ---
cc: Russell Kyle MD; Harmeet Escoto DO Operative Report Date of Surgery: May 23, 2017 Preoperative Diagnosis: Postoperative Diagnosis: Procedure: 1. Median Sternotomy 2. Myocardial Lysis of Adhesions 3. Left Anterior Mini-Thoracotomy 4. Left Leg Endoscopic Vein [place] 5. Intraoperative Vein Mapping. Surgeon: Russell Kyle Picker Box Operator(s): Garfield Quinones Operation and Findings: PREPROCEDURE DIAGNOSES 1. Severe Multi Vessel Coronary Artery Disease. 2. Left Pneumonectomy for Lung Cancer 3. Post Pneumonectomy Pulmonary Artery Tear requiring Re-Exploration 4. Post-op Stroke 5. Continued Nicotine use POSTPROCEDURE DIAGNOSES 1. Severe Multi Vessel Coronary Artery Disease. 2. Left Pneumonectomy for Lung Cancer 3. Post Pneumonectomy Pulmonary Artery Tear requiring Re-Exploration 4. Post-op Stroke 5. Continued Nicotine use 6. Dense Myocardial Adhesions 7. Severely Rotated Heart 8. Frozen Left [place] to the Heart SURGICAL PROCEDURE 1. Median Sternotomy 2. Myocardial Lysis of Adhesions 3. Left Anterior Mini-Thoracotomy 4. Left Leg Endoscopic Vein [place] 5. Intraoperative Vein Mapping. SURGEON Russell Kyle MD PLANISHER MERYL Tran PA-C ANESTHESIA General endotracheal SYSTEMS NAVIGATOR JONAH Baker MD PREPARATION ChloraPrep. COUNTS Needle, sponge, and instrument counts were correct. DRAINS Two 32-Portuguese mediastinal tubes. INDICATIONS FOR PROCEDURE The patient is a 67-year-old s/p previous L Pneumonectomy for cancer with subsequent return to the OR for PA bleeding and post-op CVA, who is presenting with chest pain. He continues to smoke. Patient was noted to have multi-vessel coronary artery disease. The patient is being brought to the operating room for surgical revascularization therapy. PROCEDURE Patient was brought to the operating room and placed supine on the OR table. Following the induction of adequate general endotracheal anesthesia and placement of appropriate monitoring devices, intraoperative vein mapping was performed which revealed suitable-caliber conduit in bilateral lower extremities. The patient was then prepped and draped in standard sterile fashion. Next, 2500 units of intravenous heparin was given. The left greater saphenous vein was harvested endoscopically. This appeared to be a useable- caliber conduit. Simultaneously, a median sternotomy was performed and the left internal mammary artery dissected free off the posterior sternal table. The patient was systemically heparinized and anticoagulation monitored by serial ACT measurements. The internal mammary artery had good pulsatile flow in it and was a good-caliber conduit. At this point, it was noted that the heart was completely in the left chest with the right lung densely adherent to the underlying pericardium. The lung was dissected off of the pericardial surface and in trying to open the pericardium, it was noted that the underlying myocardial surface was completely and densely adherent to the pericardium. The pericardium was dissected free of the anterior and right lateral surface of the heart with careful blunt and sharp dissection. The heart was rotated to the left and the anterior wall was aligned postero-laterally and densely adherent to the right hilar structures. The adhesions in this area were very dense and friable. Any attempts at dissecting the heart from the hilar structures resulted in tearing of the ventricular myocardium and bleeding. After attempting to free this area for about 3 hrs, I decided to approach the area directly through a small left anterior mini-thoracotomy. Again, the ventricle was very friable and completely frozen to the left hilar region and any dissection resulted in progressive bleeding. With the inability to free the heart and expose the target vessels, it was decided to stop the procedure at this point before it resulted in catastrophic ventricular tear/rupture and explore a percutaneous option for his CAD. Myocardial bleeding sites were repaired. Protamine solution was given. The VIRAMONTES was ligated and divided. Strict hemostasis was assured. The closure was undertaken. 2 chest tubes were placed. The sternum was approximated using sternal wires. The muscular and fascial layer were then closed in 3 layers. The endoscopic vein harvest site was closed in 2 layers. The thoracotomy was closed in 3 layers. The patient was transferred to CVICU in critical but stable condition. Russell Kyle MD May 23, 2017 14:53
--- NOTE | 2017-05-23 14:55 | MB ---
cc: DEMETRI MOYA M.D. DATE OF CONSULTATION: 05/23/2017 DATE OF : 1950 HISTORY OF PRESENT ILLNESS The patient is a 67-year-old male with past medical history of coronary artery disease, peripheral vascular disease, atrial fibrillation, prostate cancer, CVA, history of lung cancer status post left pneumonectomy in May 2016. He was admitted to [facility] on May 22, [address] Escoto's service for unstable angina. He underwent cardiac catheterization yesterday which showed multivessel coronary artery disease with 99% occluded LAD, 90% diagonal disease and 100% occluded RCA. Cardiothoracic surgery was consulted for evaluation of CABG. The patient was seen by Dr. Kyle who recommended off-pump CABG x3 with endoscopic harvesting. The patient underwent thoracotomy, however, coronary artery bypass could not be performed. The patient remained on mechanical ventilation and Critical Care Medicine was consulted for critical care management. When seen in the CVICU the patient is intubated on SIMV mode. In addition he is on Precedex, insulin drip 3 units per hour and Kevin-Synephrine at 25 mcg. A mediastinal chest tube is in place. Chest x-ray post-op showed left pneumonectomy and atelectasis in the right lung base. PAST MEDICAL HISTORY 1. Coronary artery disease. 2. Peripheral arterial disease. 3. Atrial fibrillation. 4. Prostate cancer. 5. COPD. 6. Lung cancer. 7. History of CVA. PAST SURGICAL HISTORY 1. Previous cardiac catheterization. 2. Previous left-sided pneumonectomy for lung cancer, May 2016. 3. Previous colonoscopy and cystoscopy. ALLERGIES 1. ALBUTEROL. 2. CRESTOR. SOCIAL HISTORY Occasional drinker. Smoker. FAMILY HISTORY Noncontributory. MEDICATIONS Current medications include: 1. Aspirin. 2. Plavix. 3. Amiodarone. 4. Precedex. 5. Insulin drip. REVIEW OF SYSTEMS As per HPI. The rest of the review of systems is limited as the patient is intubated. PHYSICAL EXAMINATION GENERAL: A 67-year-old male who remains on mechanical ventilation post-op. VITAL SIGNS: Afebrile. Pulse 79, blood pressure 106/53, sats 95%. Vent setting: SIMV mode. HEENT: Atraumatic, normocephalic. Pupils equal, round and reactive to light and accommodation. Extraocular muscles intact. Conjunctiva pink. Non-icteric sclera. Oral mucosa within normal. Orally intubated. NECK: Supple. No JVD, adenopathy or thyromegaly. Trachea is midline. CARDIOVASCULAR: Regular rate and rhythm. Normal S1, S2. No murmurs, rubs or gallops noted. PULMONARY: Diminished breath sounds on the left. No crackles or wheezing on the right. ABDOMEN: Soft, nontender, no distention. Positive bowel sounds. EXTREMITIES: No cyanosis, clubbing or edema. NEUROLOGIC: Intubated and on Precedex drip for sedation. LABORATORY DATA Sodium 140, potassium 3.8, chloride 107, CO2 25, BUN 12, creatinine 0.66, glucose 92. WBC 8.9, hemoglobin 14, hematocrit 38, platelet count 332. INR 1, PT 10.9, PTT 22. RADIOGRAPHIC STUDIES Chest x-ray showed left pneumonectomy, some metastasis in the right lung base. Doppler ultrasound showed no evidence of DVT. IMPRESSION 1. Vent dependent respiratory failure. 2. Coronary artery disease. 3. Status post cardiac cath on May 22, 2017, which showed multivessel disease. 4. Unstable angina. 5. COPD. 6. Previous left pneumonectomy May 2016. 7. History of lung cancer. 8. History of atrial fibrillation. 9. Peripheral vascular disease. PLAN/RECOMMENDATIONS 1. Wean off Precedex drip and monitor neuro status closely. 2. Change vent setting to assist control ventilation with a rate of 18, tidal volume 450, PEEP of 5, FIO2 40%. 3. Bronchodilators and ICU vent bundle. 4. Start spontaneous breathing trials per protocol once the patient is more awake. 5. Wean off Kevin-Synephrine to maintain MAP greater than 65 mmHg. 6. Continue with cardiac meds as ordered which include aspirin 81 mg daily, Plavix 75 mg daily. The patient had an echocardiogram in April which showed EF of 55-60%, moderate TR, mild MR, grade 1 diastolic dysfunction and mild pulmonary hypertension. 7. Monitor chest tube drainage. Chest tube management per CT surgery. 8. Monitor renal function, I's and O's, and electrolyte replacement per protocol. 9. Keep n.p.o. for now and continue with Protonix daily for GI prophylaxis. Start nutrition support within the next 24 hours if he remains intubated. 10.Monitor for signs of infections which include fever and WBC. Panculture if he spikes a fever. Preoperative antibiotics per CT surgery. Chest x-ray post-op showed small right basilar atelectasis and left pneumonectomy. 11.Monitor CBC. 12.Wean off insulin drip and transition to sliding scale insulin with Accu-Cheks. 13.GI prophylaxis with Protonix 40 mg daily and DVT prophylaxis with SCDs for now. 14.Further recommendations will be based on the hospital course. MD KERRI Marie/VIOLET /1:11 PM /2:33 PM
[2017-05-23] MEDS: KETOROLAC TROMETHAMINE 30 MG/ML (IVP) VIAL IV PUSH PRN (15:16)
--- NOTE | 2017-05-23 15:51 | EKG ---
Date Performed: 05/22/2017 Time Performed: 08:04:54 PTAGE: 67 years EKG: Sinus rhythm with PAC(s). Borderline ECG PREVIOUS TRACING : 06/08/2016 17.49 Compared to previous tracing, the PACs are new, ST-T change s have improved. DOCTOR: Maulik Warren Interpretating Date/Time 05/23/2017 15:50:14
[2017-05-23] MEDS: ceFAZolin 2 GM PREMIX 50 ML IV SCH ×2 (15:58→23:31)
[2017-05-23] MEDS ORDERED: RESP: ALBUTEROL 2.5 MG/IPRATROPIUM 0.5 MG NEB (SCH) NEB (16:00)
--- NOTE | 2017-05-23 17:38 | PD.VS.CON ---
History of Present Illness Chief Complaint: L LE ischemia Consult Requested by: Dr. Russell Kyle History of Present Illness 67 yo male with CAD s/p attempted CABG. post-op had L LE ischemia but intact motor function. The patient notes that his LEFT leg feels better than it did last week. Past/Family/Social History Past Medical History CAD PAD with stents by Dr. Lobo according to the patient A-fib CVA lung cancer bronchitis Past Surgical History lobectomy with post-op hemorrhage Social History + tob Family History NC Home Medications Active Scripts Sertraline (Zoloft) 50 Mg Tab, 50 MG PO DAILY for anxiety, #30 TAB 0 Refills 1/2 tablet daily x 7 days, then one tablet daily Prov:Ulices Kerns DO 06/09/16 Hydrocodone-Acetaminophen (Hydrocodone-Acetaminophen) 5-325 mg Tab, 1 TAB PO Q4H Y for pain, #15 TAB 0 Refills Prov:Ulices Kerns DO 06/09/16 Dabigatran (Pradaxa) 150 Mg Cap, 150 MG PO BID for afib, #60 CAP Prov:Maulik Stockton MD 05/27/16 Atorvastatin (Lipitor) 40 Mg Tab, 40 MG PO HS for hyperlipidemia, #30 TAB Prov:Maulik Stockton MD 05/27/16 Multiple Vitamins W/ Minerals (Thera M Plus) 1 Tab, 1 TAB PO DAILY for 1 Day, TAB Prov:Kunal Chowdary MD 05/22/16 Aspirin (Aspirin EC) 81 Mg Tabdr, 81 MG PO DAILY for 1 Day, TAB Prov:Kunal Chowdary MD 05/22/16 Reported Medications Omeprazole (Omeprazole) 20 Mg Tab, 20 MG PO DAILY, #30 TAB 0 Refills 05/22/17 Nitroglycerin SL (Nitroglycerin SL) 0.4 Mg Subl, 0.4 MG SL DIRECTED Y for CHEST PAIN, #100 TAB.SL 0 Refills ONE TABLET UNDER THE TONGUE NEEDED FOR CHEST PAIN, MAY REPEAT EVERY FIVE MINUTES FOR A TOTAL OF 3 DOSES OR CALL 911 IF NO RELIEF 05/22/17 Gabapentin (Gabapentin) 300 Mg Cap, 300 MG PO TID, #90 CAP 0 Refills 05/22/17 Diclofenac Sodium (Diclofenac Sodium DR) 50 Mg Tabdr, 50 MG PO DAILY, #90 TAB 0 Refills 05/22/17 Coenzyme Q10 (Ubidecarenone) (Coq-10) 50 Mg Cap, 100 MG PO DAILY 05/22/17 Coded Allergies: albuterol (Verified Allergy, Severe, 05/22/17) rosuvastatin (Unverified Allergy, Severe, 02/18/17) Review of Systems Respiratory: COMPLAINS OF: Cough Cardiovascular: COMPLAINS OF: Chest pain Musculoskeletal: COMPLAINS OF: Muscle aches, Stiffness Physical Exam Vitals/I&O Date Time Temp Pulse Resp B/P (MAP) Pulse Ox O2 Delivery O2 Flow Rate FiO2 05/23/17 15:03 100 Nasal Cannula 4.00 05/23/17 15:00 100 Nasal Cannula 4 05/23/17 13:56 100 Mechanical Ventilator 40 05/23/17 13:10 40 05/23/17 12:20 96 40 05/23/17 05:09 84 05/23/17 04:11 78 05/23/17 03:00 97.5 83 18 144/69 (94) 94 05/23/17 03:00 94 Room Air 05/23/17 03:00 79 05/23/17 02:00 77 05/23/17 01:00 76 05/23/17 00:00 78 05/22/17 23:00 98.2 90 16 104/63 (77) 96 05/22/17 23:00 90 05/22/17 23:00 96 Room Air 05/22/17 22:00 85 05/22/17 21:00 82 05/22/17 20:20 97.6 84 16 132/64 (86) 93 05/22/17 20:00 86 05/22/17 19:00 93 05/22/17 18:23 85 05/22/17 17:41 98.0 84 18 137/76 (96) 95 05/23/17 05/23/17 05/23/17 07:00 15:00 23:00 Intake Total 287.5 ml 4450 ml Output Total 500 ml 2325 ml Balance -212.5 ml 2125 ml Neuro: CAGLE, answers questions HEENT: NC/AT Neck: trachea midline Heart: irreg rate Abdomen: NT Vascular: no palpable L femoral pulses or pedal Doppler signals Extremities: Cool L LE Motor intact including foot/toes Laboratory Tests Test 05/23/17 03:50 White Blood Count 8.9 Red Blood Count 4.32 Hemoglobin 14.0 Hematocrit 38.2 Mean Corpuscular Volume 88.5 Mean Corpuscular Hemoglobin 32.4 Mean Corpuscular Hemoglobin Concent 36.6 Red Cell Distribution Width 13.5 Platelet Count 332 Mean Platelet Volume 7.3 Neutrophils (%) (Auto) 67.5 Lymphocytes (%) (Auto) 18.8 Monocytes (%) (Auto) 11.1 Eosinophils (%) (Auto) 2.3 Basophils (%) (Auto) 0.3 Neutrophils # (Auto) 6.0 Lymphocytes # (Auto) 1.7 Monocytes # (Auto) 1.0 Eosinophils # (Auto) 0.2 Basophils # (Auto) 0.0 CBC Comment AUTO DIFF Differential Comment AUTO DIFF CONFIRMED Blood Urea Nitrogen 12 Creatinine 0.66 Random Glucose 92 Calcium Level 8.9 Sodium Level 140 Potassium Level 3.8 Chloride Level 107 Carbon Dioxide Level 25.4 Anion Gap 8 Estimat Glomerular Filtration Rate 121 Last 48 hours Impressions Chest X-Ray 05/23/17 0000 Signed Impressions: Service Date/Time: Tuesday, May 23, 2017 12:37 - CONCLUSION: Status post CABG with some atelectasis in the right lung base. Francisco Javier Campbell MD Lower Extremity Ultrasound 05/22/17 0000 Signed Impressions: Service Date/Time: May 15:38 - CONCLUSION: 1. Vein mapping as above. Napoleon Youssef MD Lower Extremity Ultrasound 05/22/17 0000 Signed Impressions: Service Date/Time: May 15:30 - CONCLUSION: No evidence of deep venous thrombosis within the lower extremities. Fidel Salazar MD Chest X-Ray 05/22/17 0000 Signed Impressions: Service Date/Time: May 21:51 - CONCLUSION: Status post left pneumonectomy. Right lung is grossly clear. Garo iSlva MD Carotid Artery Ultrasound 05/22/17 0000 Signed Impressions: Service Date/Time: May 15:58 - CONCLUSION: 1. Calcified atherosclerotic plaquing at the bifurcations. 2. Velocities would suggest possible stenosis on the right in the range of 50%%. 3. No hemodynamically significant lesion identified on the left. Napoleon Youssef MD Assessment and Plan Plan Likely chronic PAD with severe arterial insufficiency. He had a CT in 2016 that was NC but showed what appears to be CLARITA occlusion. He is motor intact at present. I discussed with Dr. Kyle who is ok with a heparin gtt and I will order that. Continue q1h neuro checks - no acute intervention as long as motor intact. Plan for CTA tomorrow morning and likely intervention, potentially as outpatient depending on cardiac status. Obviously high risk for any procedure. Fidel Menendez MD FACS RPVI benefits manager [facility] - Heart and Vascular Surgery at [facility] [phone] Fidel Menendez MD May 23, 2017 17:38
--- NOTE | 2017-05-23 17:53 | PD.CONS ---
[facility] Service Critical Care Medicine Consult Requested By Dr. Kyle Reason for Consult perioperative management of hemodynamics Primary Care Physician No Primary Care Physician History of Present Illness This is a 67yM well-known to me from prior admissions who has a history Past Family Social History Allergies: Coded Allergies: albuterol (Verified Allergy, Severe, 05/22/17) rosuvastatin (Unverified Allergy, Severe, 02/18/17) Physical Exam Vital Signs Vital Signs Date Time Temp Pulse Resp B/P (MAP) Pulse Ox O2 Delivery O2 Flow Rate FiO2 05/23/17 15:03 100 Nasal Cannula 4.00 05/23/17 15:00 100 Nasal Cannula 4 05/23/17 13:56 100 Mechanical Ventilator 40 05/23/17 13:10 40 05/23/17 12:20 96 40 05/23/17 05:09 84 05/23/17 04:11 78 05/23/17 03:00 97.5 83 18 144/69 (94) 94 05/23/17 03:00 94 Room Air 05/23/17 03:00 79 05/23/17 02:00 77 05/23/17 01:00 76 05/23/17 00:00 78 05/22/17 23:00 98.2 90 16 104/63 (77) 96 05/22/17 23:00 90 05/22/17 23:00 96 Room Air 05/22/17 22:00 85 05/22/17 21:00 82 05/22/17 20:20 97.6 84 16 132/64 (86) 93 05/22/17 20:00 86 05/22/17 19:00 93 05/22/17 18:23 85 Laboratory Laboratory Tests Test 05/23/17 03:50 White Blood Count 8.9 Red Blood Count 4.32 Hemoglobin 14.0 Hematocrit 38.2 Mean Corpuscular Volume 88.5 Mean Corpuscular Hemoglobin 32.4 Mean Corpuscular Hemoglobin Concent 36.6 Red Cell Distribution Width 13.5 Platelet Count 332 Mean Platelet Volume 7.3 Neutrophils (%) (Auto) 67.5 Lymphocytes (%) (Auto) 18.8 Monocytes (%) (Auto) 11.1 Eosinophils (%) (Auto) 2.3 Basophils (%) (Auto) 0.3 Neutrophils # (Auto) 6.0 Lymphocytes # (Auto) 1.7 Monocytes # (Auto) 1.0 Eosinophils # (Auto) 0.2 Basophils # (Auto) 0.0 CBC Comment AUTO DIFF Differential Comment AUTO DIFF CONFIRMED Blood Urea Nitrogen 12 Creatinine 0.66 Random Glucose 92 Calcium Level 8.9 Sodium Level 140 Potassium Level 3.8 Chloride Level 107 Carbon Dioxide Level 25.4 Anion Gap 8 Estimat Glomerular Filtration Rate 121 Result Diagram: 05/23/17 0350 05/23/17 0350 Omar Bucio MD May 23, 2017 17:53
[2017-05-23 18:11] LABS: HEMATOCRIT 34.4 % (39.0-51.0); MEAN CELL VOLUME 90.6 FL (80.0-100.0); MEAN CORPUSCULAR HEMOGLOBIN 30.8 PG (27.0-34.0); PLATELET COUNT 236 TH/MM3 (150-450); RED BLOOD COUNT 3.79 MIL/MM3 (4.50-5.90); RED CELL DISTRIBUTION WIDTH 13.4 % (11.6-17.2); REVIEW FLAG FINAL; WHITE BLOOD COUNT 23.2 TH/MM3 (4.0-11.0)
[2017-05-23 18:18] LABS: APTT (PATIENT) 27.5 SEC (24.3-30.1); PROTHROMBIN TIME - PATIENT 11.3 SEC (9.8-11.6)
--- NOTE | 2017-05-23 18:20 | PD.CARD.PN ---
Subjective Subjective Remarks Events noted Unable to perform bypass Left lower extremity mildly cold, pulse difficult to obtain Per the patient, better than last week Currently hemodynamically stable, on low dose claudio drip No complaints Objective Medications Current Medications Medications (Trade) Dose Ordered Sig/Theron Route Start Time Stop Time Status Last Admin Sodium Chloride 1,000 ml @ 30 mls/hr Q24H IV 05/22/17 07:30 05/22/17 07:30 (Morphine Inj) 2 mg Q4H PRN IV PUSH 05/22/17 13:00 05/22/17 16:39 (Lipitor) 40 mg HS PO 05/22/17 21:00 05/22/17 20:13 (Neurontin) 300 mg TID PO 05/22/17 13:00 05/22/17 17:50 Papaverine HCl 60 mg/Nitroglycerin 100 mcg/Diltiazem HCl 100 mg/Sodium Chloride 100 ml @ 0 mls/hr [employer] IRRIGATION 05/22/17 15:00 05/29/17 14:59 05/23/17 08:19 Cefazolin Sodium 500 mg/Sodium Chloride 505 ml @ 0 mls/hr [employer] DEC[employer] IRRIGATION 05/22/17 15:00 05/29/17 14:59 05/23/17 08:18 Cefazolin Sodium/ Dextrose 50 ml @ 150 mls/hr [employer] DECORATOR IV 05/22/17 15:00 05/29/17 14:59 05/23/17 07:50 (Lopressor) 12.5 mg [employer] DECORATOR PO 05/22/17 15:00 05/29/17 14:59 05/23/17 04:56 (Hibiclens 4% Top Soln) 1 applic [employer] DECORATOR TOPICAL 05/22/17 15:00 05/29/17 14:59 Lactated Ringer's 1,000 ml @ 30 mls/hr Q24H PRN IV 05/23/17 02:45 05/26/17 02:44 (Betadine 5% Antisepsis Kit) 1 applic [place] DECORATOR PRN EACH NARE 05/23/17 02:45 05/26/17 02:44 (Chlorhexidine 2% Cloth) 3 pack [employer] DECORATOR PRN TOPICAL 05/23/17 02:45 05/26/17 02:44 (NS Flush) 2 ml BID IV FLUSH 05/23/17 21:00 (NS Flush) 2 ml UNSCH PRN IV FLUSH 05/23/17 12:00 Dexmedetomidine HCl 200 mcg/ Sodium Chloride 52 ml @ 4.05 mls/hr TITRATE PRN IV 05/23/17 12:00 Nitroglycerin/ Dextrose 250 ml @ 1.5 mls/hr TITRATE PRN IV 05/23/17 12:00 Dobutamine HCl/ Dextrose 250 ml @ 11.7 mls/hr [id number] IV 05/23/17 11:48 Dopamine HCl/ Dextrose 500 ml @ 8.775 mls/ hr TITRATE PRN IV 05/23/17 12:00 Phenylephrine HCl 40 mg/Dextrose 500 ml @ 30 mls/hr TITRATE PRN IV 05/23/17 14:00 Clevidipine 50 ml @ 2 mls/hr TITRATE PRN IV 05/23/17 12:00 Albumin Human 250 ml @ 250 mls/hr UNSCH PRN IV 05/23/17 12:00 05/23/17 14:10 Lactated Ringer's 500 ml @ 500 mls/hr Q1H PRN IV 05/23/17 11:48 (Aspirin Chew) 81 mg DAILY PO 05/24/17 09:00 (Plavix) 75 mg DAILY PO 05/24/17 09:00 (Protonix) 40 mg DAILY@06 PO 05/24/17 06:00 (Cordarone) 200 mg Q12HR PO 05/23/17 21:00 Multivitamins 10 ml/Thiamine HCl 500 mg/Folic Acid 1 mg/Sodium Chloride 515.2 ml @ 21 mls/hr DAILY IV 05/24/17 09:00 (Tylenol) 650 mg Q4H PRN PO 05/23/17 12:00 (Tylenol Supp) 650 mg Q4H PRN RECTAL 05/23/17 12:00 Acetaminophen 100 ml @ 400 mls/hr Q6H IV 05/23/17 12:00 05/24/17 06:14 05/23/17 17:57 (Morphine Inj) 1 mg Q10M PRN IV PUSH 05/23/17 12:00 (Percocet 5-325 Mg) 1 tab Q3H PRN PO 05/23/17 12:00 (Percocet 5-325 Mg) 2 tab Q3H PRN PO 05/23/17 12:00 (Toradol Inj) 15 mg Q6H PRN IV PUSH 05/23/17 12:00 05/25/17 11:59 05/23/17 15:16 (fentaNYL INJ) 25 mcg Q1H PRN IV PUSH 05/23/17 12:00 (Zofran Inj) 4 mg Q6H PRN IV PUSH 05/23/17 12:00 (Apresoline Inj) 10 mg Q4H PRN IV PUSH 05/23/17 12:00 (Lopressor Inj) 2.5 mg Q1H PRN IV PUSH 05/23/17 12:00 Potassium Chloride 100 ml @ 50 mls/hr UNSCH PRN IV 05/23/17 12:00 Potassium Chloride 100 ml @ 50 mls/hr UNSCH PRN IV 05/23/17 12:00 (KCl) 20 meq UNSCH PRN PO 05/23/17 12:00 (KCl) 40 meq UNSCH PRN PO 05/23/17 12:00 Magnesium Sulfate 2 gm/Sodium Chloride 104 ml @ 100 mls/hr UNSCH PRN IV 05/23/17 12:00 Magnesium Sulfate 2 gm/Sodium Chloride 104 ml @ 50 mls/hr UNSCH PRN IV 05/23/17 12:00 (Calcium Chloride Inj) 0.5 gm UNSCH PRN IV PUSH 05/23/17 12:00 Insulin Human Regular 100 units/ Sodium Chloride 100 ml @ 3 mls/hr TITRATE PRN IV 05/23/17 14:00 (D50w (Vial) Inj) 50 ml UNSCH PRN IV PUSH 05/23/17 12:00 Cefazolin Sodium/ Dextrose 50 ml @ 100 mls/hr Q8H IV 05/23/17 16:00 05/25/17 00:29 05/23/17 15:58 (Sodium Bicarbonate 8.4% Inj) 50 meq UNSCH PRN IV PUSH 05/23/17 12:00 (Sodium Bicarbonate 8.4% Inj) 100 meq UNSCH PRN IV PUSH 05/23/17 12:00 Heparin Sodium/ Dextrose 250 ml @ 14 mls/hr TITRATE PRN IV 05/23/17 17:45 Vital Signs / I&O Vital Signs Date Time Temp Pulse Resp B/P (MAP) Pulse Ox O2 Delivery O2 Flow Rate FiO2 05/23/17 15:03 100 Nasal Cannula 4.00 05/23/17 15:00 100 Nasal Cannula 4 05/23/17 15:00 98.1 80 14 115/58 (77) 100 114/55 (74) 05/23/17 14:01 12 05/23/17 13:56 100 Mechanical Ventilator 40 05/23/17 13:10 40 05/23/17 12:20 96 40 05/23/17 12:20 97.8 78 14 98/59 (72) 98 100/51 (67) 05/23/17 05:09 84 05/23/17 04:11 78 05/23/17 03:00 97.5 83 18 144/69 (94) 94 05/23/17 03:00 94 Room Air 05/23/17 03:00 79 05/23/17 02:00 77 05/23/17 01:00 76 05/23/17 00:00 78 05/22/17 23:00 98.2 90 16 104/63 (77) 96 05/22/17 23:00 90 05/22/17 23:00 96 Room Air 05/22/17 22:00 85 05/22/17 21:00 82 05/22/17 20:20 97.6 84 16 132/64 (86) 93 05/22/17 20:00 86 05/22/17 19:00 93 05/22/17 18:23 85 I/O 05/22/17 05/22/17 05/22/17 05/23/17 05/23/17 05/23/17 07:00 15:00 23:00 07:00 15:00 23:00 Intake Total 240 ml 287.5 ml 4450 ml Output Total 500 ml 2325 ml Balance 240 ml -212.5 ml 2125 ml Intake Oral 240 ml 240 ml IV Total 47.5 ml Autotransfusion 950 ml Other 3500 ml Output Urine Total 500 ml 325 ml Estimated Blood Loss 2000 ml Physical Exam GENERAL: NAD, AAOx3 SKIN: Warm and dry. HEAD: Atraumatic. Normocephalic. EYES: Pupils equal and round. No scleral icterus. No injection or drainage. ENT: No nasal bleeding or discharge. Mucous membranes pink and moist. NECK: Trachea midline. No JVD. CARDIOVASCULAR: Regular rate and rhythm. Sternotomy RESPIRATORY: No accessory muscle use. Clear to auscultation. Breath sounds equal bilaterally. GASTROINTESTINAL: Abdomen soft, non-tender, nondistended. Hepatic and splenic margins not palpable. MUSCULOSKELETAL: Extremities without clubbing, cyanosis, or edema. Left lower extremity mildly colder than the right NEUROLOGICAL: Awake and alert. No obvious cranial nerve deficits. Motor grossly within normal limits. Five out of 5 muscle strength in the arms and legs. Normal speech. PSYCHIATRIC: Appropriate mood and affect; insight and judgment normal. Laboratory Laboratory Tests Test 05/23/17 03:50 05/23/17 17:45 White Blood Count 8.9 TH/MM3 Red Blood Count 4.32 MIL/MM3 Hemoglobin 14.0 GM/DL Hematocrit 38.2 % Mean Corpuscular Volume 88.5 FL Mean Corpuscular Hemoglobin 32.4 PG Mean Corpuscular Hemoglobin Concent 36.6 % Red Cell Distribution Width 13.5 % Platelet Count 332 TH/MM3 Mean Platelet Volume 7.3 FL Neutrophils (%) (Auto) 67.5 % Lymphocytes (%) (Auto) 18.8 % Monocytes (%) (Auto) 11.1 % Eosinophils (%) (Auto) 2.3 % Basophils (%) (Auto) 0.3 % Neutrophils # (Auto) 6.0 TH/MM3 Lymphocytes # (Auto) 1.7 TH/MM3 Monocytes # (Auto) 1.0 TH/MM3 Eosinophils # (Auto) 0.2 TH/MM3 Basophils # (Auto) 0.0 TH/MM3 CBC Comment AUTO DIFF Differential Comment AUTO DIFF CONFIRMED Blood Urea Nitrogen 12 MG/DL Creatinine 0.66 MG/DL Random Glucose 92 MG/DL Calcium Level 8.9 MG/DL Sodium Level 140 MEQ/L Potassium Level 3.8 MEQ/L Chloride Level 107 MEQ/L Carbon Dioxide Level 25.4 MEQ/L Anion Gap 8 MEQ/L Estimat Glomerular Filtration Rate 121 ML/MIN Imaging Last 24 hours Impressions Chest X-Ray 05/23/17 0000 Signed Impressions: Service Date/Time: Tuesday, May 23, 2017 12:37 - CONCLUSION: Status post CABG with some atelectasis in the right lung base. Francisco Javier Campbell MD Assessment and Plan Problem List: (1) CAD (coronary artery disease) ICD Codes: I25.10 - Atherosclerotic heart disease of [place] coronary artery without angina pectoris (2) PAD (peripheral artery disease) ICD Codes: I73.9 - Peripheral vascular disease, unspecified Status: Chronic (3) Left thoracotomy, left pneumonectomy Status: Acute Assessment and Plan 1) CAD Unable to perform CABG Will review his CAD and consider high risk PCI 2) PAD Dr. Menendez evaluation Will consider CTA of the lower extremities 3) Wean claudio drip as possible Harmeet Escoto DO May 23, 2017 18:20
[2017-05-23] MEDS: HEPARIN-D5W 25,000 U/250 ML 250 ML IV PRN (18:24)
[2017-05-23] MEDS: AMIODARONE 200 MG TAB PO SCH (20:53)
[2017-05-23] MEDS: ATORVASTATIN 40 MG TAB PO SCH (20:53)
[2017-05-23] MEDS: SODIUM CHLORIDE 0.9% FLUSH 10 ML FLUSH IV FLUSH SCH (20:53)
[2017-05-24 01:12] LABS: APTT (PATIENT) 65.3 SEC (24.3-30.1)
[2017-05-24] MEDS: MORPHINE SULFATE 2 MG/ML INJ IV PUSH PRN (01:25)
[2017-05-24 03:00] VITALS: BP_SYST 101; BP_SYST 90; BP_DIAS 53; BP_DIAS 55; PULSE 88; PULSE 93; RESP 20; TEMP 99; O2SAT 96
[2017-05-24 04:51] LABS: HEMATOCRIT 30.3 % (39.0-51.0); MEAN CELL VOLUME 89.2 FL (80.0-100.0); MEAN CORPUSCULAR HEMOGLOBIN 31.3 PG (27.0-34.0); MEAN CORPUSCULAR HGB CONC 35.1 % (32.0-36.0); PLATELET COUNT 239 TH/MM3 (150-450); RED BLOOD COUNT 3.39 MIL/MM3 (4.50-5.90); RED CELL DISTRIBUTION WIDTH 13.4 % (11.6-17.2); REVIEW FLAG FINAL; WHITE BLOOD COUNT 14.3 TH/MM3 (4.0-11.0)
[2017-05-24] MEDS: PANTOPRAZOLE SOD 40 MG DELAYED RELEASE TAB PO SCH (05:22)
--- NOTE | 2017-05-24 05:55 | RADRPT ---
EXAM DATE/TIME: 05/24/2017 04:05 [place] COMPARISON: CHEST SINGLE AP, May 23, 2017, 12:37. INDICATIONS : Evaluate for pneumonia, post CABG MEDICAL HISTORY : Carcinoma, lung. Chronic obstructive pulmonary disease. SURGICAL HISTORY : Pneumonectomy. ENCOUNTER: Subsequent ACUITY: 2 days PAIN SCORE: Non-responsive. LOCATION: Bilateral chest FINDINGS: Interval extubation. Bilateral chest tubes stable in position. Right internal jugular catheter tip projects in the mid superior vena cava. Complete opacification of left hemithorax and mediastinal sh ift towards the left, stable. Small triangular-shaped infiltrate in the medial right lower lung. No blunting of right costophrenic angle. CONCLUSION: New small infiltrate in the medial right lower lung. Mohsen Ceballos MD on May 24, 2017 at 5:52 Board Certified Radiologist. This report was verified electronically.
[2017-05-24] MEDS: ACETAMINOPHEN 1000 MG/100 ML 100 ML IV SCH (06:00)
[2017-05-24 06:06] LABS: BICARBONATE 23.1 MEQ/L (21.0-32.0); MAGNESIUM 1.8 MG/DL (1.5-2.5); POTASSIUM 4.1 MEQ/L (3.5-5.1)
--- NOTE | 2017-05-24 06:56 | HHI.CCPN ---
Subjective Remarks/Hospital Course The patient is a 67-year-old male with past medical history of coronary artery disease, peripheral vascular disease, atrial fibrillation, prostate cancer, CVA , history of lung cancer status post left pneumonectomy in May 2016. He was admitted to [facility] on May 22, [address] Escoto's service for unstable angina. He underwent cardiac catheterization yesterday which showed multivessel coronary artery disease with 99% occluded LAD, 90% diagonal disease and 100% occluded RCA. Cardiothoracic surgery was consulted for evaluation of CABG. The patient was seen by Dr. Kyle who recommended off- pump CABG x3 with endoscopic harvesting. The patient underwent thoracotomy, however, coronary artery bypass could not be performed. The patient remained on mechanical ventilation and Critical Care Medicine was consulted for critical care management. 05/24: Up in chair, breathing comfortably. Some bronchospasm right side. Add Atrovent. Patient gets quite tachycardic on beta agonists apparently. Right lung well expanded. Objective Vital Signs Date Time Temp Pulse Resp B/P (MAP) Pulse Ox O2 Delivery O2 Flow Rate FiO2 05/24/17 03:50 16 05/24/17 03:00 99 Nasal Cannula 2.00 05/24/17 03:00 88 05/24/17 03:00 99.0 90/53 (65) 101/55 (70) 05/23/17 15:00 40 Intake and Output 05/24/17 05/24/17 05/25/17 08:00 16:00 00:00 Intake Total 880 ml Output Total 670 ml Balance 210 ml Result Diagram: 05/24/17 0337 05/24/17 0337 Objective Remarks PHYSICAL EXAMINATION GENERAL: A 67-year-old male, conversant, comfortable. HEENT: Atraumatic, normocephalic. Pupils equal, round and reactive to light and accommodation. Extraocular muscles intact. Conjunctiva pink. Non-icteric sclera. NECK: Supple. Trachea is shifted to left. Airway widely patent. CARDIOVASCULAR: Regular rate and rhythm. Normal S1, S2. No murmurs, rubs or gallops noted. No JVD. PULMONARY: No breath sounds on the left. No crackles or wheezing on the right. ABDOMEN: Soft, nontender, no distention. Positive bowel sounds. EXTREMITIES: No cyanosis, clubbing or edema. Well perfused. NEUROLOGIC: Alert, O X 3, conversant. A/P Assessment and Plan IMPRESSION: 1. S/P sternotomy, left thoracotomy. 2. Coronary artery disease. 3. Status post cardiac cath on May 22, 2017, which showed multivessel disease. 4. Unstable angina. 5. COPD. 6. Previous left pneumonectomy May 2016. 7. History of lung cancer. 8. History of atrial fibrillation. 9. Peripheral vascular disease. PLAN/RECOMMENDATIONS: 1. Atrovent bronchodilator. 2. Mobilize with assistance. 3. Bronchodilators and ICU vent bundle. 5. Wean off Kevin-Synephrine to maintain MAP greater than 65 mmHg. 6. Continue with cardiac meds as ordered which include aspirin 81 mg daily, Plavix 75 mg daily. The patient had an echocardiogram in April which showed EF of 55-60%, moderate TR, mild MR, grade 1 diastolic dysfunction and mild pulmonary hypertension. 7. Monitor chest tube drainage. Chest tube management per CT surgery. 8. Monitor renal function, I's and O's, and electrolyte replacement per protocol. 9. Swallow eval. 10.Monitor for signs of infections which include fever and WBC. Panculture if he spikes a fever. Preoperative antibiotics per CT surgery. Chest x-ray post-op showed small right basilar atelectasis and left pneumonectomy. 11.Monitor CBC. 12.Wean off insulin drip and transition to sliding scale insulin with Accu-Cheks. 13.GI prophylaxis with Protonix 40 mg daily and DVT prophylaxis with SCDs for now. Overall impression: Stable hemodynamic and respiratory function. Michael Currie MD May 24, 2017 06:56
[2017-05-24 07:00] VITALS: BP_SYST 109; BP_SYST 133; BP_DIAS 62; PULSE 85; PULSE 86; RESP 18; TEMP 97.8; O2SAT 98
[2017-05-24 07:17] LABS: APTT (PATIENT) 58.1 SEC (24.3-30.1)
[2017-05-24] MEDS: NS 1000P @30 MLS/HR (KVO) IV SCH (07:30)
[2017-05-24] MEDS: RESP: IPRATROPIUM 0.5 MG/2.5 ML NEB NEB SCH ×4 (08:39→20:44)
[2017-05-24 08:40] VITALS: O2SAT 100
[2017-05-24] MEDS: MULTIVITAMIN INJ 10 ML, THIAMINE INJ 500 MG, FOLIC ACID INJ 1 MG in SODIUM CHLORID 0.9%... IV SCH (09:00)
[2017-05-24] MEDS: GABAPENTIN 300 MG CAP PO SCH ×4 (09:00→18:04)
[2017-05-24] MEDS: SODIUM CHLORIDE 0.9% FLUSH 10 ML FLUSH IV FLUSH SCH ×2 (09:00→20:58)
[2017-05-24] MEDS: DOBUTamine PREMIX DRIP 250 ML IV SCH (09:11)
[2017-05-24] MEDS: ASPIRIN 81 MG CHEW TAB PO SCH (09:41)
[2017-05-24] MEDS: AMIODARONE 200 MG TAB PO SCH ×2 (09:41→20:57)
[2017-05-24] MEDS: ceFAZolin 2 GM PREMIX 50 ML IV SCH ×2 (09:41→16:07)
[2017-05-24] MEDS: CLOPIDOGREL 75 MG TAB PO SCH (09:41)
[2017-05-24] MEDS: HEPARIN-D5W 25,000 U/250 ML 250 ML IV PRN (09:45)
[2017-05-24] MEDS: oxyCODONE/ACETAMINOPHEN 5 MG/325 MG TAB PO PRN ×2 (09:46→20:57)
--- NOTE | 2017-05-24 10:41 | PD.VS.PN ---
Subjective Subjective/Hospital Course Pt c/o lower chest pain near incision and abdominal pain. Says leg hurts worse than yesterday still motor intact. Objective Vitals/I&O Date Time Temp Pulse Resp B/P (MAP) Pulse Ox O2 Delivery O2 Flow Rate FiO2 05/24/17 08:40 100 Nasal Cannula 2.00 05/24/17 07:00 98 Nasal Cannula 2.00 05/24/17 07:00 86 05/24/17 07:00 97.8 85 18 109/62 (78) 98 133/62 (85) 05/24/17 03:50 16 05/24/17 03:00 99 Nasal Cannula 2.00 05/24/17 03:00 88 05/24/17 03:00 99.0 93 20 90/53 (65) 96 101/55 (70) 05/24/17 01:30 20 05/23/17 23:00 98.6 93 22 106/53 (70) 99 122/54 (76) 05/23/17 23:00 99 Nasal Cannula 2.00 05/23/17 23:00 93 05/23/17 20:39 100 Nasal Cannula 2.00 05/23/17 19:00 99 Nasal Cannula 2.00 05/23/17 19:00 98.3 89 18 103/58 (73) 99 117/52 (73) 05/23/17 19:00 89 05/23/17 19:00 18 05/23/17 18:37 98.6 05/23/17 17:30 100 Nasal Cannula 2.00 05/23/17 15:04 80 05/23/17 15:03 100 Nasal Cannula 4.00 05/23/17 15:00 100 Nasal Cannula 4 05/23/17 15:00 99 Nasal Cannula 4.00 05/23/17 15:00 98.1 80 14 115/58 (77) 100 114/55 (74) 05/23/17 15:00 40 05/23/17 14:25 98.6 05/23/17 13:56 100 Mechanical Ventilator 40 05/23/17 13:10 40 05/23/17 12:29 98.6 05/23/17 12:20 40 05/23/17 12:20 96 40 05/23/17 12:20 78 05/23/17 12:20 97.8 78 14 98/59 (72) 98 100/51 (67) 05/23/17 12:19 78 05/24/17 05/24/17 05/24/17 07:00 15:00 23:00 Intake Total 880 ml Output Total 670 ml Balance 210 ml Physical Exam L LE motor intact. No palpable pulses. No tissue loss. Laboratory Laboratory Tests Test 05/23/17 17:45 05/24/17 00:47 05/24/17 03:37 05/24/17 06:30 White Blood Count 23.2 14.3 Red Blood Count 3.79 3.39 Hemoglobin 11.7 10.6 Hematocrit 34.4 30.3 Mean Corpuscular Volume 90.6 89.2 Mean Corpuscular Hemoglobin 30.8 31.3 Mean Corpuscular Hemoglobin Concent 34.0 35.1 Red Cell Distribution Width 13.4 13.4 Platelet Count 236 239 Mean Platelet Volume 7.2 8.4 Prothrombin Time 11.3 Prothromb Time International Ratio 1.0 Activated Partial Thromboplast Time 27.5 65.3 58.1 Blood Urea Nitrogen 9 Creatinine 0.50 Random Glucose 102 Calcium Level 7.7 Magnesium Level 1.8 Sodium Level 138 Potassium Level 4.1 Chloride Level 107 Carbon Dioxide Level 23.1 Anion Gap 8 Estimat Glomerular Filtration Rate 167 Imaging Last 48 hours Impressions Chest X-Ray 05/24/17 0500 Signed Impressions: Service Date/Time: Wednesday, May 24, 2017 04:05 - CONCLUSION: New small infiltrate in the medial right lower lung. Mohsen Ceballos MD Chest X-Ray 05/23/17 0000 Signed Impressions: Service Date/Time: Tuesday, May 23, 2017 12:37 - CONCLUSION: Status post CABG with some atelectasis in the right lung base. Francisco Javier Campbell MD Assessment and Plan Plan Likely chronic PAD with severe arterial insufficiency. Clearly, more pressing issue is coronary disease. 1. CTA A/P with runoff today 2. Continue hep gtt 3. Continue neurovasc checks q1h 4. If motor stays intact, can be elective/urgent intervention but needs to have coronary intervention first if possible. Fidel Menendez MD [facility] RPVI steel pourer [facility] - Heart and Vascular Surgery at [facility] [phone] Fidel Menendez MD May 24, 2017 10:41
[2017-05-24 11:00] VITALS: BP_SYST 130; BP_SYST 167; BP_DIAS 66; BP_DIAS 79; PULSE 92; PULSE 98; RESP 22; TEMP 97.8; O2SAT 96
--- NOTE | 2017-05-24 11:04 | PD.CAR.PN ---
CVT Progress Note CVT: POD #: 1 Subjective/Hospital Course: sts data discussed with pt and spouse RISK SCORES About the STS Risk Calculator Procedure: CAB Only Risk of Mortality: 1.301% Morbidity or Mortality: 15.857% Long Length of Stay: 5.43% Short Length of Stay: 40.82% Permanent Stroke: 1.765% Prolonged Ventilation: 11.969% DSW Infection: 0.429% Renal Failure: 1.978% Reoperation: 5.647% 05/24/17 c/o left chest wall/incisional pain Left leg paresthesias Objective: Vital Signs Date Time Temp Pulse Resp B/P (MAP) Pulse Ox O2 Delivery O2 Flow Rate FiO2 05/24/17 08:40 100 Nasal Cannula 2.00 05/24/17 07:00 98 Nasal Cannula 2.00 05/24/17 07:00 86 05/24/17 07:00 97.8 85 18 109/62 (78) 98 133/62 (85) 05/24/17 03:50 16 05/24/17 03:00 99 Nasal Cannula 2.00 05/24/17 03:00 88 05/24/17 03:00 99.0 93 20 90/53 (65) 96 101/55 (70) 05/24/17 01:30 20 05/23/17 23:00 98.6 93 22 106/53 (70) 99 122/54 (76) 05/23/17 23:00 99 Nasal Cannula 2.00 05/23/17 23:00 93 05/23/17 20:39 100 Nasal Cannula 2.00 05/23/17 19:00 99 Nasal Cannula 2.00 05/23/17 19:00 98.3 89 18 103/58 (73) 99 117/52 (73) 05/23/17 19:00 89 05/23/17 19:00 18 05/23/17 18:37 98.6 05/23/17 17:30 100 Nasal Cannula 2.00 05/23/17 15:04 80 05/23/17 15:03 100 Nasal Cannula 4.00 05/23/17 15:00 100 Nasal Cannula 4 05/23/17 15:00 99 Nasal Cannula 4.00 05/23/17 15:00 98.1 80 14 115/58 (77) 100 114/55 (74) 05/23/17 15:00 40 05/23/17 14:25 98.6 05/23/17 13:56 100 Mechanical Ventilator 40 05/23/17 13:10 40 05/23/17 12:29 98.6 05/23/17 12:20 40 05/23/17 12:20 96 40 05/23/17 12:20 78 05/23/17 12:20 97.8 78 14 98/59 (72) 98 100/51 (67) 05/23/17 12:19 78 Labs: Laboratory Tests Test 05/24/17 00:47 05/24/17 03:37 05/24/17 06:30 Activated Partial Thromboplast Time 65.3 SEC (24.3-30.1) 58.1 SEC (24.3-30.1) White Blood Count 14.3 TH/MM3 (4.0-11.0) Red Blood Count 3.39 MIL/MM3 (4.50-5.90) Hemoglobin 10.6 GM/DL (13.0-17.0) Hematocrit 30.3 % (39.0-51.0) Mean Corpuscular Volume 89.2 FL (80.0-100.0) Mean Corpuscular Hemoglobin 31.3 PG (27.0-34.0) Mean Corpuscular Hemoglobin Concent 35.1 % (32.0-36.0) Red Cell Distribution Width 13.4 % (11.6-17.2) Platelet Count 239 TH/MM3 (150-450) Mean Platelet Volume 8.4 FL (7.0-11.0) Blood Urea Nitrogen 9 MG/DL (7-18) Creatinine 0.50 MG/DL (0.60-1.30) Random Glucose 102 MG/DL (74-106) Calcium Level 7.7 MG/DL (8.5-10.1) Magnesium Level 1.8 MG/DL (1.5-2.5) Sodium Level 138 MEQ/L (136-145) Potassium Level 4.1 MEQ/L (3.5-5.1) Chloride Level 107 MEQ/L (98-107) Carbon Dioxide Level 23.1 MEQ/L (21.0-32.0) Anion Gap 8 MEQ/L (5-15) Estimat Glomerular Filtration Rate 167 ML/MIN (>89) Result Diagram: 05/24/17 0337 05/24/17 0337 Imaging: Last 24 hours Impressions Chest X-Ray 05/24/17 0500 Signed Impressions: Service Date/Time: Wednesday, May 24, 2017 04:05 - CONCLUSION: New small infiltrate in the medial right lower lung. Mohsen Ceballos MD Cardiovascular: RRR Telemetry: NSR Pulmonary: No BS on left, few crackles on right GI/: NABS Incision: dry and intact CT: 220ml/12hrs Plan: Chest CTA today per Dr. Menendez Out of bed to chair, ambulate with assist Critical care and Cardiology following as well. Will leave in CVICU today secondary to limb ischemia, pulmonary and cardiac issues. Advance diet Remove [place] (1) CAD (coronary artery disease) (2) PAD (peripheral artery disease) (3) Left thoracotomy, left pneumonectomy Annika Villagran MD May 24, 2017 11:04
[2017-05-24] MEDS ORDERED: ATROPINE SULFATE 1 MG/10 ML SYRINGE ONE (11:20)
[2017-05-24] MEDS ORDERED: EPINEPHrine HCL (1:10,000) 1 MG/10 ML SYRINGE ONE (11:20)
[2017-05-24] MEDS ORDERED: IOHEXOL 350 MG/ML 10 ML VIAL (for RAD DIAG) IVCONTRAST ONE (11:59)
[2017-05-24 15:00] VITALS: BP 114/54; PULSE 92; RESP 20; TEMP 98.8; O2SAT 96
--- NOTE | 2017-05-24 15:15 | RADRPT ---
EXAM DATE/TIME: 05/24/2017 11:50 [facility] COMPARISON: No previous studies available for comparison. INDICATIONS : Bilateral leg pain; evaluate for occlusion. IV CONTRAST: 75 cc Omnipaque 350 (iohexol) IV RADIATION DOSE: 3.36 CTDIvol (mGy) MEDICAL HISTORY : Cardiovascular disease. SURGICAL HISTORY : Abdominal aortic aneurysm repair. Lobectomy.Iliac stent. ENCOUNTER: Initial ACUITY: 1 day PAIN SCALE: 5/10 LOCATION: Bilateral lower extrimety TECHNIQUE: Volumetric scanning was performed using a multi-row detector CT scanner. The data was post processed with a variety of visualization algorithms including full volume maximum intensity projection, multi -planar sliding thin slab reformation, curved planar reformation, and surface rendering techniques. Using automated exposure control and adjustment of the mA and/or kV according to patient size, radiat ion dose was kept as low as reasonably achievable to obtain optimal diagnostic quality images. DICO M format image data is available electronically for review and comparison. FINDINGS: There is dcgqvvei-ke-uyffow atherosclerotic plaquing of the aorta with heavily diseased distal a devi measuring 1 cm in size. There is severe right common iliac origin stenosis as well as severe jose cruz nosis at the origin of the right common iliac artery stent. The right common iliac artery stent is patent. The external iliac artery on the right is heavily diseased with atherosclerotic plaquing but patent. Severe atherosclerotic disease of the internal il iac artery noted on the right. In the right leg, there is long segment occlusion of the superficial femoral artery with reconst itution of the popliteal artery and limited visualization of 2 vessel runoff via the anterior and pos terior tibial arteries. Distal runoff is not well seen. The left common iliac artery is occluded. It is diminutive in caliber. The external iliac is als o diminutive in caliber with severe atherosclerosis, and occluded. In the left leg, a severely diseased superficial femoral artery is noted with short segment dist al occlusion. The popliteal is small in caliber but patent ureter there is two-vessel runoff distally via the anterior and posterior tibial arteries, heavily diseased. The renal arteries are patent as well as the celiac, superior mesenteric and inferior mesenteric arteries. Note is made of bilateral chest tubes and bilateral pleural effusions. There is air seen i n the anterior mediastinum and subcutaneous air in the lower chest and anterior abdominal wall tracki ng inferiorly along the anterior abdominal wall subcutaneous tissues on the left, and into the left l eg subcutaneous tissues and intermuscular tissues. There is a fat and large bowel containing inguinal hernia on the left. There is a small amount of free intraperitoneal air in the left upper quadrant a djacent to chest tubes. CONCLUSION: Severe atherosclerotic disease is noted as described above. Please see above discussion. Nghia Alfaro MD on May 24, 2017 at 15:06 Board Certified Radiologist. This report was verified electronically.
--- NOTE | 2017-05-24 15:46 | EKG ---
Date Performed: 05/24/2017 Time Performed: 04:11:24 PTAGE: 67 years EKG: Sinus rhythm . Compared to prior tracing no significant change Normal ECG PREVIOUS TRACING : 05/22/17 @ 0804 DOCTOR: Justice Walker Interpretating Date/Time 05/24/2017 15:45:30
[2017-05-24] MEDS: KETOROLAC TROMETHAMINE 30 MG/ML (IVP) VIAL IV PUSH PRN (16:07)
[2017-05-24] MEDS: LOW DOSE INSULIN NOVOLOG SUPPLEMENTAL SCALE SQ SCH ×2 (17:00→21:00)
[2017-05-24] MEDS ORDERED: DEXTROSE 50% IN WATER 50 ML VIAL(D50) IV PUSH PRN (17:00)
[2017-05-24] MEDS ORDERED: GLUCAGON 1 MG/ML VIAL OTHER PRN (17:00)
[2017-05-24 20:00] VITALS: BP 92/50; PULSE 92; RESP 20; TEMP 98; O2SAT 100
[2017-05-24] MEDS: ATORVASTATIN 40 MG TAB PO SCH (20:57)
--- NOTE | 2017-05-24 23:00 | RADRPT ---
EXAM DATE/TIME: 05/23/2017 00:00 [facility] COMPARISON: CTA RUNOFF W 3D RECON, May 24, 2017, 11:50. INDICATIONS : Peripheral Vascular Disease TECHNIQUE: Four-cuff ankle and brachial pressures were obtained. Pulse cuff waveform tracings of the ankles were recorded, and ankle-brachial indices were calculated. PRESSURES (mmHg): Brachial (arm): Left 112 Ankle: Right 66 Left 57 GEOVANI: Right 0.59 Left 0.51 PULSED CUFF WAVEFORMS: Abnormal waveform in the ankle bilaterally with blunted upstroke and uniphasic upstroke. CONCLUSION: Markedly decreased GEOVANI bilaterally. Mohsen Ceballos MD on May 24, 2017 at 22:55 Board Certified Radiologist. This report was verified electronically.
[2017-05-25] VITALS (9 sets, daily range): BP systolic 85–109; BP diastolic 0–59; PULSE 91–111; RESP 14–20; TEMP 97.6–98.4; O2SAT 95–99
[2017-05-25] MEDS: ceFAZolin 2 GM PREMIX 50 ML IV SCH
[2017-05-25] MEDS: KETOROLAC TROMETHAMINE 30 MG/ML (IVP) VIAL IV PUSH PRN (01:00)
[2017-05-25] MEDS ORDERED: ALPRAZolam 0.5 MG TAB PO ONE (01:40)
[2017-05-25] MEDS: RESP: IPRATROPIUM 0.5 MG/2.5 ML NEB NEB SCH ×4 (02:00→21:19)
[2017-05-25] MEDS ORDERED: ALPRAZolam 0.5 MG TAB ONE (02:11)
[2017-05-25] MEDS ORDERED: RESP: IPRATROPIUM 0.5 MG/2.5 ML NEB NEB PRN (04:30)
[2017-05-25] MEDS: HEPARIN-D5W 25,000 U/250 ML 250 ML IV PRN (05:00)
[2017-05-25] MEDS: PANTOPRAZOLE SOD 40 MG DELAYED RELEASE TAB PO SCH (05:48)
[2017-05-25 05:52] LABS: APTT (PATIENT) 77.3 SEC (24.3-30.1)
[2017-05-25 05:56] LABS: BICARBONATE 25.8 MEQ/L (21.0-32.0); MAGNESIUM 1.9 MG/DL (1.5-2.5); POTASSIUM 3.7 MEQ/L (3.5-5.1)
[2017-05-25] MEDS: NS 1000P @30 MLS/HR (KVO) IV SCH (07:30)
[2017-05-25] MEDS: ALPRAZolam 0.5 MG TAB PO PRN ×2 (07:39→15:34)
[2017-05-25] MEDS ORDERED: FUROSEMIDE 20 MG/2 ML VIAL IV PUSH ONE (07:45)
[2017-05-25] MEDS: LOW DOSE INSULIN NOVOLOG SUPPLEMENTAL SCALE SQ SCH ×4 (08:00→21:19)
[2017-05-25] MEDS: MULTIVITAMIN INJ 10 ML, THIAMINE INJ 500 MG, FOLIC ACID INJ 1 MG in SODIUM CHLORID 0.9%... IV SCH (09:00)
[2017-05-25] MEDS: CLOPIDOGREL 75 MG TAB PO SCH (09:48)
[2017-05-25] MEDS: SODIUM CHLORIDE 0.9% FLUSH 10 ML FLUSH IV FLUSH SCH ×2 (09:48→21:19)
[2017-05-25] MEDS: SERTRALINE HCL 50 MG TAB PO SCH (09:48)
[2017-05-25] MEDS: GABAPENTIN 300 MG CAP PO SCH ×3 (09:48→21:18)
[2017-05-25] MEDS: AMIODARONE 200 MG TAB PO SCH (09:48)
[2017-05-25] MEDS: ASPIRIN 81 MG CHEW TAB PO SCH (09:48)
[2017-05-25] MEDS: FUROSEMIDE 40 MG/4 ML VIAL IV PUSH SCH ×2 (10:15→13:44)
--- NOTE | 2017-05-25 10:20 | PD.CAR.PN ---
CVT Progress Note CVT: POD #: 2 Subjective/Hospital Course: sts data discussed with pt and spouse RISK SCORES About the STS Risk Calculator Procedure: CAB Only Risk of Mortality: 1.301% Morbidity or Mortality: 15.857% Long Length of Stay: 5.43% Short Length of Stay: 40.82% Permanent Stroke: 1.765% Prolonged Ventilation: 11.969% DSW Infection: 0.429% Renal Failure: 1.978% Reoperation: 5.647% 05/24/17 c/o left chest wall/incisional pain Left leg paresthesias 05/25/17 c/o anxiety, incisional pain Continues on heparin, plavix, asa. Oxygen requirement is increased this morning at 4 liters NC Objective: Vital Signs Date Time Temp Pulse Resp B/P (MAP) Pulse Ox O2 Delivery O2 Flow Rate FiO2 05/25/17 07:00 99 Nasal Cannula 4.00 05/25/17 07:00 111 05/25/17 07:00 97.6 111 16 105/59 (74) 96 05/25/17 04:00 93 05/25/17 04:00 99 Nasal Cannula 4.00 05/25/17 04:00 98.4 93 16 99/55 (70) 99 05/25/17 02:00 95 Nasal Cannula 3.00 05/25/17 00:00 97 Nasal Cannula 4.00 05/25/17 00:00 101 14 97/54 (68) 97 05/25/17 00:00 101 05/24/17 21:00 97 Nasal Cannula 4.00 05/24/17 20:00 98.0 92 20 92/50 (64) 100 05/24/17 20:00 92 05/24/17 20:00 100 Nasal Cannula 2.00 05/24/17 15:00 98.8 92 20 114/54 (74) 96 Arterial Line 05/24/17 15:00 96 Nasal Cannula 2.00 05/24/17 15:00 92 05/24/17 12:45 18 05/24/17 11:00 97.8 98 22 130/79 (96) 96 167/66 (99) 05/24/17 11:00 96 Nasal Cannula 2.00 05/24/17 11:00 92 Labs: Laboratory Tests Test 05/25/17 04:50 Activated Partial Thromboplast Time 77.3 SEC (24.3-30.1) Blood Urea Nitrogen 10 MG/DL (7-18) Creatinine 0.60 MG/DL (0.60-1.30) Random Glucose 123 MG/DL (74-106) Calcium Level 7.7 MG/DL (8.5-10.1) Magnesium Level 1.9 MG/DL (1.5-2.5) Sodium Level 138 MEQ/L (136-145) Potassium Level 3.7 MEQ/L (3.5-5.1) Chloride Level 106 MEQ/L (98-107) Carbon Dioxide Level 25.8 MEQ/L (21.0-32.0) Anion Gap 6 MEQ/L (5-15) Estimat Glomerular Filtration Rate 135 ML/MIN (>89) Result Diagram: 05/24/17 0337 05/25/17 0450 Cardiovascular: RRR Telemetry: NSR Pulmonary: No BS on left Few crackles on right GI/: NABS, NT Incision: dry and intact CT: 150ml/24 hrs, no air leak Plan: Diurese CBC, BMP in AM Wean oxygen for sat > 90% Will hold heparin for 3 hours prior to pulling chest tubes, continue Plavix and ASA. Encourage ambulation, up to chair I reviewed his CTA with Dr. Menendez and there are no acute changes and his symptoms have resolved. Dr. Escoto will follow-up tomorrow. (1) CAD (coronary artery disease) (2) PAD (peripheral artery disease) (3) Left thoracotomy, left pneumonectomy Annika Villagran MD May 25, 2017 10:20
[2017-05-25] MEDS: oxyCODONE/ACETAMINOPHEN 5 MG/325 MG TAB PO PRN (11:05)
[2017-05-25] MEDS ORDERED: KETOROLAC TROMETHAMINE 30 MG/ML (IVP) VIAL IV PUSH ONE (12:45)
[2017-05-25 13:32] LABS: APTT (PATIENT) 58.1 SEC (24.3-30.1)
[2017-05-25] MEDS: POTASSIUM CHLORIDE 10 MEQ CONTROLLED RELEASE TAB PO SCH ×2 (13:44→21:19)
--- NOTE | 2017-05-25 15:17 | HHI.CCPN ---
Subjective Remarks/Hospital Course The patient is a 67-year-old male with past medical history of coronary artery disease, peripheral vascular disease, atrial fibrillation, prostate cancer, CVA , history of lung cancer status post left pneumonectomy in May 2016. He was admitted to [facility] on May 22, [address] Escoto's service for unstable angina. He underwent cardiac catheterization yesterday which showed multivessel coronary artery disease with 99% occluded LAD, 90% diagonal disease and 100% occluded RCA. Cardiothoracic surgery was consulted for evaluation of CABG. The patient was seen by Dr. Kyle who recommended off- pump CABG x3 with endoscopic harvesting. The patient underwent thoracotomy, however, coronary artery bypass could not be performed. The patient remained on mechanical ventilation and Critical Care Medicine was consulted for critical care management. 05/24: Up in chair, breathing comfortably. Some bronchospasm right side. Add Atrovent. Patient gets quite tachycardic on beta agonists apparently. Right lung well expanded. 05/25: anxious overnight. patient states that he gets anxious when he doesn't take his zoloft. this was restarted today. otherwise, denies complaints. HR slightly elevated at 92. chest tube with minimal serosanguinous output. Objective Vital Signs Date Time Temp Pulse Resp B/P (MAP) Pulse Ox O2 Delivery O2 Flow Rate FiO2 05/25/17 11:00 97.7 97 20 97/54 (68) 99 05/25/17 11:00 Nasal Cannula 4.00 05/23/17 15:00 40 Intake and Output 05/25/17 05/25/17 05/26/17 08:00 16:00 00:00 Intake Total 683 ml Output Total 370 ml Balance 313 ml Result Diagram: 05/24/17 0337 05/25/17 0450 Objective Remarks PHYSICAL EXAMINATION GENERAL: A 67-year-old male, conversant, comfortable. HEENT: Atraumatic, normocephalic. Pupils equal, round and reactive to light and accommodation. Extraocular muscles intact. Conjunctiva pink. Non-icteric sclera. NECK: Supple. Trachea is shifted to left. Airway widely patent. CARDIOVASCULAR: Regular rate and rhythm. No JVD. PULMONARY: No breath sounds on the left. No crackles or wheezing on the right. ABDOMEN: Soft, nontender, no distention. Positive bowel sounds. EXTREMITIES: No cyanosis, clubbing. new trace edema of the LEs. Well perfused. NEUROLOGIC: Alert, O X 3, conversant. A/P Assessment and Plan IMPRESSION: 1. S/P sternotomy, left thoracotomy. 2. Coronary artery disease. 3. Status post cardiac cath on May 22, 2017, which showed multivessel disease. 4. Unstable angina. 5. COPD. 6. Previous left pneumonectomy May 2016. 7. History of lung cancer. 8. History of atrial fibrillation. 9. Peripheral vascular disease. PLAN/RECOMMENDATIONS: 1. Atrovent bronchodilator. 2. Mobilize with assistance. 3. Bronchodilators 4. early low-dose diuresis with lasix 20mg iv x 1. 5. metop 2.5 mg iv q1h for HR > 100. 6. cardiology to decide on possible high risk PCI vs. other intervention for multi-vessel disease. 7. Continue with cardiac meds as ordered which include aspirin 81 mg daily, Plavix 75 mg daily. The patient had an echocardiogram in April which showed EF of 55-60%, moderate TR, mild MR, grade 1 diastolic dysfunction and mild pulmonary hypertension. 8. Monitor chest tube drainage. Chest tube management per CT surgery. 9. Monitor renal function, I's and O's, and electrolyte replacement per protocol. 10. heart healthy diet as tolerated. 11. SSI 13.GI prophylaxis with Protonix 40 mg daily and DVT prophylaxis with SCDs for now. Overall impression: Stable hemodynamic and respiratory function. Omar Bucio MD May 25, 2017 15:17
[2017-05-25] MEDS: MAGNESIUM SULFAT 1 GM PREMIX 100 ML x2 bags IV SCH ×2 (18:17→21:21)
[2017-05-25 18:48] LABS: APTT (PATIENT) 42.4 SEC (24.3-30.1)
[2017-05-25] MEDS: MONTELUKAST SODIUM 10 MG TAB PO SCH (21:18)
[2017-05-25] MEDS: ATORVASTATIN 40 MG TAB PO SCH (21:18)
[2017-05-26] VITALS (8 sets, daily range): BP systolic 93–125; BP diastolic 50–62; PULSE 90–99; RESP 12–22; TEMP 97.2–99.3; O2SAT 94–99
[2017-05-26] MEDS: RESP: IPRATROPIUM 0.5 MG/2.5 ML NEB NEB SCH ×4 (03:13→20:54)
[2017-05-26] MEDS: ALPRAZolam 0.5 MG TAB PO PRN ×2 (03:26→23:58)
[2017-05-26 04:36] LABS: HEMATOCRIT 26.5 % (39.0-51.0); MEAN CORPUSCULAR HEMOGLOBIN 30.5 PG (27.0-34.0); MEAN CORPUSCULAR HGB CONC 33.9 % (32.0-36.0); PLATELET COUNT 203 TH/MM3 (150-450); RED BLOOD COUNT 2.95 MIL/MM3 (4.50-5.90); RED CELL DISTRIBUTION WIDTH 13.7 % (11.6-17.2); REVIEW FLAG FINAL; WHITE BLOOD COUNT 16.3 TH/MM3 (4.0-11.0)
[2017-05-26 04:45] LABS: APTT (PATIENT) 43.4 SEC (24.3-30.1)
[2017-05-26 05:04] LABS: POTASSIUM 3.9 MEQ/L (3.5-5.1)
[2017-05-26] MEDS: PANTOPRAZOLE SOD 40 MG DELAYED RELEASE TAB PO SCH (05:50)
[2017-05-26] MEDS: oxyCODONE/ACETAMINOPHEN 5 MG/325 MG TAB PO PRN ×2 (06:41→21:05)
[2017-05-26] MEDS: NS 1000P @30 MLS/HR (KVO) IV SCH (07:30)
[2017-05-26] MEDS: LOW DOSE INSULIN NOVOLOG SUPPLEMENTAL SCALE SQ SCH ×4 (08:00→21:00)
[2017-05-26] MEDS: SODIUM CHLORIDE 0.9% FLUSH 10 ML FLUSH IV FLUSH SCH ×2 (09:00→21:06)
--- NOTE | 2017-05-26 09:13 | PD.VS.PN ---
Subjective Subjective/Hospital Course Pt short winded after PT today No c/o leg pain ambulated well. Objective Vitals/I&O Date Time Temp Pulse Resp B/P (MAP) Pulse Ox O2 Delivery O2 Flow Rate FiO2 05/26/17 03:00 97 Nasal Cannula 2.00 05/26/17 03:00 98.2 99 17 93/50 (64) 97 05/26/17 03:00 99 05/25/17 23:00 99 Nasal Cannula 3.00 05/25/17 23:00 98.0 91 16 85/55 (65) 97 05/25/17 23:00 91 05/25/17 21:18 96 Nasal Cannula 3.00 05/25/17 19:00 99 Nasal Cannula 4.00 05/25/17 19:00 97.9 103 19 109/0 (36) 97 05/25/17 19:00 103 05/25/17 15:00 98 Nasal Cannula 3.00 05/25/17 15:00 91 05/25/17 15:00 98.2 91 16 98/56 (70) 98 05/25/17 11:00 97.7 97 20 97/54 (68) 99 05/25/17 11:00 99 Nasal Cannula 4.00 05/25/17 11:00 97 05/26/17 05/26/17 05/26/17 07:00 15:00 23:00 Intake Total 300 ml Output Total 200 ml Balance 100 ml Physical Exam + SOB and tachypneic after PT no palp femoral pulse leg warmer and perfused Laboratory Laboratory Tests Test 05/25/17 13:10 05/25/17 18:20 05/26/17 04:00 Activated Partial Thromboplast Time 58.1 42.4 43.4 White Blood Count 16.3 Red Blood Count 2.95 Hemoglobin 9.0 Hematocrit 26.5 Mean Corpuscular Volume 90.0 Mean Corpuscular Hemoglobin 30.5 Mean Corpuscular Hemoglobin Concent 33.9 Red Cell Distribution Width 13.7 Platelet Count 203 Mean Platelet Volume 8.6 Blood Urea Nitrogen 10 Creatinine 0.51 Random Glucose 107 Calcium Level 8.0 Sodium Level 140 Potassium Level 3.9 Chloride Level 106 Carbon Dioxide Level 25.0 Anion Gap 9 Estimat Glomerular Filtration Rate 163 Imaging 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 1. Will need complex inflow procedure but needs resolution of coronary issues first 2. Continue systemic anticoagulation 3. As long as motor intact, can be done electively 4. Will arrange f/u in clinic in 2-3 weeks Fidel Menendez MD FACS [employer] [facility] [phone] Fidel Menendez MD May 26, 2017 09:13
[2017-05-26] MEDS: GABAPENTIN 300 MG CAP PO SCH ×3 (09:33→17:37)
[2017-05-26] MEDS: SERTRALINE HCL 50 MG TAB PO SCH (09:33)
[2017-05-26] MEDS: CLOPIDOGREL 75 MG TAB PO SCH (09:33)
[2017-05-26] MEDS: FUROSEMIDE 40 MG/4 ML VIAL IV PUSH SCH (09:34)
[2017-05-26] MEDS: ASPIRIN 81 MG CHEW TAB PO SCH (09:34)
--- NOTE | 2017-05-26 09:48 | PD.CAR.PN ---
CVT Progress Note Subjective/Hospital Course: 67-year-old male with past medical history of coronary artery disease, peripheral vascular disease, atrial fibrillation, prostate cancer, CVA, history of lung cancer status post left pneumonectomy in May 2016. He was admitted to [facility] on May 22, [address] Escoto's service for unstable angina. He underwent cardiac catheterization yesterday which showed multivessel coronary artery disease with 99% occluded LAD, 90% diagonal disease and 100% occluded RCA. Cardiothoracic surgery was consulted for evaluation of CABG. The patient was seen by Dr. Kyle who recommended off-pump CABG x3 with endoscopic harvesting. The patient underwent thoracotomy, however, coronary artery bypass could not be performed. Friable ventricle and inability to expose target vessels 05/24/17 c/o left chest wall/incisional pain Left leg paresthesias 05/25/17 c/o anxiety, incisional pain Continues on heparin, plavix, asa. Oxygen requirement is increased this morning at 4 liters NC 05/26 Heparin gtt off since 4am, chest tube removed without difficulty nursing to remove left IJ CVC left chest wall incision intact and well approximated prevena dressing to chest on 2 liters nasal cannula continue pulm toileting BB on lower side, unable to start BB resume Heparin gtt in 4 hours / Objective: GENERAL: SKIN: Warm and dry.prevena to chest, incision intact to left chest HEAD: Normocephalic. EYES: No scleral icterus. No injection or drainage. NECK: Supple, trachea midline. No JVD or lymphadenopathy. CARDIOVASCULAR: Regular rate and rhythm without murmurs, gallops, or rubs mild edema . RESPIRATORY: Breath sounds equal bilaterally. No accessory muscle use. diminished in bases GASTROINTESTINAL: Abdomen soft, non-tender, nondistended. MUSCULOSKELETAL: No cyanosis, or edema. BACK: Nontender without obvious deformity. No CVA tenderness. Vital Signs Date Time Temp Pulse Resp B/P (MAP) Pulse Ox O2 Delivery O2 Flow Rate FiO2 05/26/17 09:18 98 Nasal Cannula 2.00 05/26/17 03:00 97 Nasal Cannula 2.00 05/26/17 03:00 98.2 99 17 93/50 (64) 97 05/26/17 03:00 99 05/25/17 23:00 99 Nasal Cannula 3.00 05/25/17 23:00 98.0 91 16 85/55 (65) 97 05/25/17 23:00 91 05/25/17 21:18 96 Nasal Cannula 3.00 05/25/17 19:00 99 Nasal Cannula 4.00 05/25/17 19:00 97.9 103 19 109/0 (36) 97 05/25/17 19:00 103 05/25/17 15:00 98 Nasal Cannula 3.00 05/25/17 15:00 91 05/25/17 15:00 98.2 91 16 98/56 (70) 98 05/25/17 11:00 97.7 97 20 97/54 (68) 99 05/25/17 11:00 99 Nasal Cannula 4.00 05/25/17 11:00 97 Labs: Laboratory Tests Test 05/26/17 04:00 White Blood Count 16.3 TH/MM3 (4.0-11.0) Red Blood Count 2.95 MIL/MM3 (4.50-5.90) Hemoglobin 9.0 GM/DL (13.0-17.0) Hematocrit 26.5 % (39.0-51.0) Mean Corpuscular Volume 90.0 FL (80.0-100.0) Mean Corpuscular Hemoglobin 30.5 PG (27.0-34.0) Mean Corpuscular Hemoglobin Concent 33.9 % (32.0-36.0) Red Cell Distribution Width 13.7 % (11.6-17.2) Platelet Count 203 TH/MM3 (150-450) Mean Platelet Volume 8.6 FL (7.0-11.0) Activated Partial Thromboplast Time 43.4 SEC (24.3-30.1) Blood Urea Nitrogen 10 MG/DL (7-18) Creatinine 0.51 MG/DL (0.60-1.30) Random Glucose 107 MG/DL (74-106) Calcium Level 8.0 MG/DL (8.5-10.1) Sodium Level 140 MEQ/L (136-145) Potassium Level 3.9 MEQ/L (3.5-5.1) Chloride Level 106 MEQ/L (98-107) Carbon Dioxide Level 25.0 MEQ/L (21.0-32.0) Anion Gap 9 MEQ/L (5-15) Estimat Glomerular Filtration Rate 163 ML/MIN (>89) Result Diagram: 05/26/1739905/26/17399 Telemetry: NSR (1) CAD (coronary artery disease) Plan: CABG aborted / friable ventricle and inability to expose target vessels chest tubes removed without difficulty OOB ambulate Dr Escoto to eval for possible high risk PCI (2) PAD (peripheral artery disease) Plan: pt seen and eval by Dr Menendez (3) Left thoracotomy, left pneumonectomy Alicia Morgan May 26, 2017 09:48
--- NOTE | 2017-05-26 09:55 | HHI.FF ---
Face to Face Verification Diagnosis: (1) s/p aborted CABG (2) CAD (coronary artery disease) (3) PAD (peripheral artery disease) (4) COPD (chronic obstructive pulmonary disease) Home Health Nursing Order: Wound care and dressing changes Nursing assessment with vital signs Home Health Aide Instructions: Heart and Vascular Surgery patients *Special attention to sternal dressing Mandatory frequency Assess and evaluation, 4 days in a row The next week 3X week 2 times a week for 4 weeks 1 time a week for 5 weeks Schedule Heart and Vascular patients for full 60 day certification period Initial visit Review Open Heart Surgery Discharge Instructions (Sternal precautions, Activity, Elastic hose, Incision care, Driving, Incentive spirometry, Smoking, Cement, Work and other) Need Betadine to paint incision Medication reconciliation Importance of follow up care/ check on appointments Make calendar record temperature daily When to call [facility] at Home nurse, review instructions, phone list Incentive Spirometry, demonstration Visit 1- Begin discharge instruction for patient family and/ or caregiver using teach back method- Signs and symptoms of infection Disease characteristics Medicines and side effects Foods and nutrition/ appetite Infection control/ hand washing/ hygiene Visit 2- Continue teaching Discharge instructions- include additional information on smoking cessation , sternal dressing (sternal vac) Visit 3- Continue teaching- Cough and deep breathing, incision monitoring. Choose my plate Visit 4- Continue teaching- Discuss limitations Discuss how they are feeling Discuss progress toward goals Remaining visits- continue teaching and monitoring For any questions please call : PREVENA Single Use Negative Wound Therapy System Caregiver Instruction Sheet 1. A Prevena dressing system was applied to the chest incision during surgery , to promote wound healing. It works via a suction device (negative pressure wound therapy) to remove low to moderate levels of exudate (drainage) and infectious materials. We recommend that the device stay in place for up to seven days, from day of surgery. 2. Day of Surgery___/ Day of Removal ___05/30/17 3. The dressing should only be removed by a health career and technology education teacher. Please arrange removal of device to coincide with Home Health visit and or with Nursing staff at Rehab 4. If skin reddening or irritation of skin occurs, or excessive drainage, please notify the Cardiovascular Surgeons office at [phone]. 5. Light showering is permissible; however the pump should be disconnected and placed in safe location, where it will not get wet. The dressing should not be exposed to direct spray or submerged in water. No bath tub / shower only. Ensure the end of the tubing attached to the dressing is facing down so that water does not enter the top of the tube. 6. To remove Prevena dressing: press purple button to turn off device / remove the suction. Then disconnect the tubing from the pump. The fixation strips should be stretched away from the skin and the dressing lifted at one corner and peeled back until it has been fully removed. 7. After removal, it is ok to shower daily using liquid dial soap and clean wash cloth, rinse and pat dry, and leave incision open to air dry. For any concerns regarding Prevena dressing, and or wounds, please contact Mally Currie, patient navigator at [phone] or notify the Cardiovascular Surgeons office at [phone]. Incentive spirometry Q1 hr x 10, while awake, also use acapella device hourly whole awake Sternal Breast Bone Precautions: NO pushing or pulling, ( pt must use sternal pillow to support chest with all activities and with coughing ( takes up to 3 months breast bone to heal ) Daily incision care: ok to shower daily, no tub bath. Wash all incisions with liquid dial soap, clean wash cloth to each site, rinse and pat dry. Observe for any signs of infection, such as drainage which is dark yellow, zarate, green or foul smelling. Immediately report to the surgeon any drainage from the chest incision, or legs, and for any abnormal drainage from the chest tube sites. Notify surgeon if any temp >101.5 degrees F. When specialty dressing removed/ or if you do not have one, continue to shower daily as above, then rinse and pat incision dry and paint with betadine daily x 5 days. Allow steri strips to fall off if you have any. Avoid lotions, creams, salves, oils, etc. for the first month Please see attached forms for additional instructions regarding post Open Heart specialty wound vacuum dressings. CHAU or Prevena , Dressing to be removed by Nursing staff on __05/30/ F/U appointment: as per DC instructions: PCP in 2 weeks, CV surgeon 2 weeks, Senior Training Specialist 3-4 weeks For any questions regarding incisions/ dressing / meds / post op care or above Symptoms, Friday 8am-5pm Heart & Vascular Surgery Office ( Dr. Kyle & Dr. Villagran), After Hours / Nights (5pm -8am) Weekends and Holidays Please call [facility] ([facility]) Charge Nurse I have seen patient Francisco Javier Swartz on 05/26/17. My clinical findings support the need for the requested home health care services because: Patient has SOB Deconditioned w/ increased weakness I certify that my clinical findings support that this patient is homebound because: Post-op weakness Alicia Morgan May 26, 2017 09:55
--- NOTE | 2017-05-26 11:07 | RSPPFT ---
DATE OF PROCEDURE: 05/22/17 COMMENTS: The forced vital capacity shows a mild reduction. The FEV1 shows a marked reduction. The FEV1 and FEF 25-75 are both markedly reduced. The FEV1/FVC ratio is normal. IMPRESSION: This is compatible with severe, large and small airways, obstructive lung disease. There may be a restrictive component. This could be determined with a total lung capacity.
--- NOTE | 2017-05-26 18:52 | HHI.CCPN ---
Subjective Remarks/Hospital Course The patient is a 67-year-old male with past medical history of coronary artery disease, peripheral vascular disease, atrial fibrillation, prostate cancer, CVA , history of lung cancer status post left pneumonectomy in May 2016. He was admitted to [facility] on May 22, [address] Escoto's service for unstable angina. He underwent cardiac catheterization yesterday which showed multivessel coronary artery disease with 99% occluded LAD, 90% diagonal disease and 100% occluded RCA. Cardiothoracic surgery was consulted for evaluation of CABG. The patient was seen by Dr. Kyle who recommended off- pump CABG x3 with endoscopic harvesting. The patient underwent thoracotomy, however, coronary artery bypass could not be performed. The patient remained on mechanical ventilation and Critical Care Medicine was consulted for critical care management. 05/24: Up in chair, breathing comfortably. Some bronchospasm right side. Add Atrovent. Patient gets quite tachycardic on beta agonists apparently. Right lung well expanded. 05/25: anxious overnight. patient states that he gets anxious when he doesn't take his zoloft. this was restarted today. otherwise, denies complaints. HR slightly elevated at 92. chest tube with minimal serosanguinous output. 05/26: doing well. slightly hypotensive. plan for LHC with high risk PCI tomorrow. chest tubes d/c'd. Objective Vital Signs Date Time Temp Pulse Resp B/P (MAP) Pulse Ox O2 Delivery O2 Flow Rate FiO2 05/26/17 15:00 92 05/26/17 15:00 97 Nasal Cannula 3.00 05/26/17 15:00 97.9 22 125/62 (83) 05/23/17 15:00 40 Intake and Output 05/26/17 05/26/17 05/27/17 08:00 16:00 00:00 Intake Total 300 ml 1154 ml Output Total 200 ml 1050 ml Balance 100 ml 104 ml Result Diagram: 05/26/1739905/26/17399 Objective Remarks PHYSICAL EXAMINATION GENERAL: A 67-year-old male, conversant, comfortable. HEENT: Atraumatic, normocephalic. Pupils equal, round and reactive to light and accommodation. Extraocular muscles intact. Conjunctiva pink. Non-icteric sclera. NECK: Supple. Trachea is shifted to left. Airway widely patent. CARDIOVASCULAR: Regular rate and rhythm. No JVD. PULMONARY: No breath sounds on the left. No crackles or wheezing on the right. ABDOMEN: Soft, nontender, no distention. Positive bowel sounds. EXTREMITIES: No cyanosis, clubbing. new trace edema of the LEs. Well perfused. NEUROLOGIC: Alert, O X 3, conversant. A/P Assessment and Plan IMPRESSION: 1. S/P sternotomy, left thoracotomy. 2. Coronary artery disease. 3. Status post cardiac cath on May 22, 2017, which showed multivessel disease. 4. Unstable angina. 5. COPD. 6. Previous left pneumonectomy May 2016. 7. History of lung cancer. 8. History of atrial fibrillation. 9. Peripheral vascular disease. PLAN/RECOMMENDATIONS: 1. Atrovent bronchodilator. 2. Mobilize with assistance. 3. Bronchodilators 4. continue gentle diuresis. 5. metop 2.5 mg iv q1h for HR > 100. 6. likely plan for high risk PCI tomorrow. 7. Continue with cardiac meds as ordered which include aspirin 81 mg daily, Plavix 75 mg daily. The patient had an echocardiogram in April which showed EF of 55-60%, moderate TR, mild MR, grade 1 diastolic dysfunction and mild pulmonary hypertension. 8. Monitor chest tube drainage. Chest tube management per CT surgery. 9. Monitor renal function, I's and O's, and electrolyte replacement per protocol. 10. heart healthy diet as tolerated. 11. SSI 13.GI prophylaxis with Protonix 40 mg daily and DVT prophylaxis with SCDs for now. Overall impression: Stable hemodynamic and respiratory function. Omar Bucio MD May 26, 2017 18:52
--- NOTE | 2017-05-26 19:28 | PD.CARD.PN ---
Subjective Subjective Remarks Events noted Unable to perform bypass Left lower extremity mildly cold, pulse difficult to obtain Per the patient, better than last week Currently hemodynamically stable, although BP mildly low earlier Objective Medications Current Medications Medications (Trade) Dose Ordered Sig/Theron Route Start Time Stop Time Status Last Admin Sodium Chloride 1,000 ml @ 30 mls/hr Q24H IV 05/22/17 07:30 05/22/17 07:30 (Lipitor) 40 mg HS PO 05/22/17 21:00 05/25/17 21:18 (Neurontin) 300 mg TID PO 05/22/17 13:00 05/26/17 17:37 (NS Flush) 2 ml BID IV FLUSH 05/23/17 21:00 05/26/17 09:00 (NS Flush) 2 ml UNSCH PRN IV FLUSH 05/23/17 12:00 (Aspirin Chew) 81 mg DAILY PO 05/24/17 09:00 05/26/17 09:34 (Plavix) 75 mg DAILY PO 05/24/17 09:00 05/26/17 09:33 (Protonix) 40 mg DAILY@06 PO 05/24/17 06:00 05/26/17 05:50 (Tylenol) 650 mg Q4H PRN PO 05/23/17 12:00 05/26/17 06:25 (Percocet 5-325 Mg) 1 tab Q3H PRN PO 05/23/17 12:00 (Percocet 5-325 Mg) 2 tab Q3H PRN PO 05/23/17 12:00 05/26/17 06:41 (Zofran Inj) 4 mg Q6H PRN IV PUSH 05/23/17 12:00 (Apresoline Inj) 10 mg Q4H PRN IV PUSH 05/23/17 12:00 (Lopressor Inj) 2.5 mg Q1H PRN IV PUSH 05/23/17 12:00 05/25/17 07:53 Heparin Sodium/ Dextrose 250 ml @ 14 mls/hr TITRATE PRN IV 05/23/17 17:45 05/25/17 05:00 (Atrovent Neb) 0.5 mg Q6HR NEB NEB 05/24/17 06:45 05/26/17 16:21 (D50w (Vial) Inj) 50 ml UNSCH PRN IV PUSH 05/24/17 17:00 (Glucagon Inj) 1 mg UNSCH PRN OTHER 05/24/17 17:00 (NovoLOG SUPPLEMENTAL SCALE) 1 ACHS SLIDING SCALE SQ 05/24/17 17:00 05/25/17 21:19 (Xanax) 0.5 mg Q8H PRN PO 05/25/17 04:30 05/26/17 03:26 (Atrovent Neb) 0.5 mg Q4HR NEB PRN NEB 05/25/17 04:30 (Zoloft) 50 mg DAILY PO 05/25/17 09:00 05/26/17 09:33 (Singulair) 10 mg HS PO 05/25/17 21:00 05/25/17 21:18 (Lasix Inj) 40 mg DAILY IV PUSH 05/25/17 10:15 05/26/17 09:34 (KCl) 30 meq DAILY PO 05/27/17 09:00 Vital Signs / I&O Vital Signs Date Time Temp Pulse Resp B/P (MAP) Pulse Ox O2 Delivery O2 Flow Rate FiO2 05/26/17 15:00 92 05/26/17 15:00 97 Nasal Cannula 3.00 05/26/17 15:00 97.9 94 22 125/62 (83) 97 05/26/17 11:00 97.2 97 16 98/55 (69) 94 05/26/17 11:00 97 05/26/17 11:00 94 Nasal Cannula 3.00 05/26/17 09:18 98 Nasal Cannula 2.00 05/26/17 07:00 97.9 92 12 94/50 (65) 99 05/26/17 07:00 98 Nasal Cannula 3.00 05/26/17 07:00 93 05/26/17 03:00 97 Nasal Cannula 2.00 05/26/17 03:00 98.2 99 17 93/50 (64) 97 05/26/17 03:00 99 05/25/17 23:00 99 Nasal Cannula 3.00 05/25/17 23:00 98.0 91 16 85/55 (65) 97 05/25/17 23:00 91 05/25/17 21:18 96 Nasal Cannula 3.00 I/O 05/25/17 05/25/17 05/25/17 05/26/17 05/26/1717 07:00 15:00 23:00 07:00 15:00 23:00 Intake Total 683 ml 654 ml 300 ml 1154 ml Output Total 370 ml 1350 ml 200 ml 1050 ml Balance 313 ml -696 ml 100 ml 104 ml Intake Oral 480 ml 500 ml 300 ml 950 ml IV Total 203 ml 154 ml 204 ml Output Urine Total 300 ml 1250 ml 200 ml 1050 ml Chest Tube Drainage Total 70 ml 100 ml 0 ml # Voids 1 4 # Bowel Movements 0 1 0 Physical Exam GENERAL: NAD, AAOx3 SKIN: Warm and dry. HEAD: Atraumatic. Normocephalic. EYES: Pupils equal and round. No scleral icterus. No injection or drainage. ENT: No nasal bleeding or discharge. Mucous membranes pink and moist. NECK: Trachea midline. No JVD. CARDIOVASCULAR: Regular rate and rhythm. Sternotomy RESPIRATORY: No accessory muscle use. Clear to auscultation. Breath sounds equal bilaterally. GASTROINTESTINAL: Abdomen soft, non-tender, nondistended. Hepatic and splenic margins not palpable. MUSCULOSKELETAL: Extremities without clubbing, cyanosis, or edema. Left lower extremity mildly colder than the right NEUROLOGICAL: Awake and alert. No obvious cranial nerve deficits. Motor grossly within normal limits. Five out of 5 muscle strength in the arms and legs. Normal speech. PSYCHIATRIC: Appropriate mood and affect; insight and judgment normal. Laboratory Laboratory Tests Test 05/26/17 04:00 White Blood Count 16.3 TH/MM3 Red Blood Count 2.95 MIL/MM3 Hemoglobin 9.0 GM/DL Hematocrit 26.5 % Mean Corpuscular Volume 90.0 FL Mean Corpuscular Hemoglobin 30.5 PG Mean Corpuscular Hemoglobin Concent 33.9 % Red Cell Distribution Width 13.7 % Platelet Count 203 TH/MM3 Mean Platelet Volume 8.6 FL Activated Partial Thromboplast Time 43.4 SEC Blood Urea Nitrogen 10 MG/DL Creatinine 0.51 MG/DL Random Glucose 107 MG/DL Calcium Level 8.0 MG/DL Sodium Level 140 MEQ/L Potassium Level 3.9 MEQ/L Chloride Level 106 MEQ/L Carbon Dioxide Level 25.0 MEQ/L Anion Gap 9 MEQ/L Estimat Glomerular Filtration Rate 163 ML/MIN Assessment and Plan Problem List: (1) CAD (coronary artery disease) ICD Codes: I25.10 - Atherosclerotic heart disease of [place] coronary artery without angina pectoris (2) PAD (peripheral artery disease) ICD Codes: I73.9 - Peripheral vascular disease, unspecified Status: Chronic (3) Left thoracotomy, left pneumonectomy Status: Acute Assessment and Plan 1) CAD Unable to perform CABG Plan for high risk PCI tomorrow if Hgb stable 2) PAD Dr. Menendez evaluation Will evaluate after coronary intervention for further work up Harmeet Escoto DO May 26, 2017 19:28
[2017-05-26] MEDS: ATORVASTATIN 40 MG TAB PO SCH (21:04)
[2017-05-26] MEDS: MONTELUKAST SODIUM 10 MG TAB PO SCH (21:04)
[2017-05-27] VITALS (9 sets, daily range): BP systolic 91–104; BP diastolic 56–64; PULSE 90–107; RESP 11–24; TEMP 97.7–98.3; O2SAT 95–99
[2017-05-27] MEDS: oxyCODONE/ACETAMINOPHEN 5 MG/325 MG TAB PO PRN ×5 (00:32→22:55)
[2017-05-27] MEDS: RESP: IPRATROPIUM 0.5 MG/2.5 ML NEB NEB SCH ×4 (03:37→20:14)
[2017-05-27] MEDS: PANTOPRAZOLE SOD 40 MG DELAYED RELEASE TAB PO SCH (05:05)
[2017-05-27 05:16] LABS: AUTOMATED NEUTROPHIL # 13.6 TH/MM3 (1.8-7.7); BASOPHIL # 0.1 TH/MM3 (0-0.2); BASOPHIL % 0.7 % (0.0-2.0); EOSINOPHIL # 0.2 TH/MM3 (0-0.4); EOSINOPHIL % 1.1 % (0.0-4.0); HEMATOCRIT 29.6 % (39.0-51.0); HEMO FLAGS DIFF FINAL; LYMPHOCYTE # 1.2 TH/MM3 (1.0-4.8); MEAN CELL VOLUME 90.3 FL (80.0-100.0); MEAN CORPUSCULAR HEMOGLOBIN 29.8 PG (27.0-34.0); MONO % 8.1 % (0.0-8.0); NEUT % 83.1 % (16.0-70.0); PLATELET COUNT 297 TH/MM3 (150-450); RED BLOOD COUNT 3.27 MIL/MM3 (4.50-5.90); RED CELL DISTRIBUTION WIDTH 13.5 % (11.6-17.2); WHITE BLOOD COUNT 16.4 TH/MM3 (4.0-11.0)
[2017-05-27 05:42] LABS: BICARBONATE 24.8 MEQ/L (21.0-32.0); POTASSIUM 3.8 MEQ/L (3.5-5.1)
[2017-05-27] MEDS: ALPRAZolam 0.5 MG TAB PO PRN ×3 (07:17→22:55)
[2017-05-27] MEDS: NS 1000P @30 MLS/HR (KVO) IV SCH (07:30)
[2017-05-27] MEDS ORDERED: HEPARIN-NS/PF INJ 1,000 ML ONE (08:30)
[2017-05-27] MEDS ORDERED: HEPARIN-NS/PF INJ 500 ML ONE (08:36)
[2017-05-27 08:50] LABS: APTT (PATIENT) 39.2 SEC (24.3-30.1)
[2017-05-27] MEDS: CLOPIDOGREL 75 MG TAB PO SCH (09:00)
[2017-05-27] MEDS: ASPIRIN 81 MG CHEW TAB PO SCH (09:00)
[2017-05-27] MEDS ORDERED: FUROSEMIDE 40 MG/4 ML VIAL ONE (09:13)
[2017-05-27] MEDS ORDERED: NITROGLYCERIN-D5W 50 MG/250 ML 250 ML ONE ×2 (09:15→17:42)
[2017-05-27] MEDS ORDERED: MORPHINE SULFATE 8 MG/ML INJ ONE ×2 (09:19→10:09)
--- NOTE | 2017-05-27 09:49 | PD.CAR.PN ---
CVT Progress Note Subjective/Hospital Course: 67-year-old male with past medical history of coronary artery disease, peripheral vascular disease, atrial fibrillation, prostate cancer, CVA, history of lung cancer status post left pneumonectomy in May 2016. He was admitted to [facility] on May 22, [address] Escoto's service for unstable angina. He underwent cardiac catheterization yesterday which showed multivessel coronary artery disease with 99% occluded LAD, 90% diagonal disease and 100% occluded RCA. Cardiothoracic surgery was consulted for evaluation of CABG. The patient was seen by Dr. Kyle who recommended off-pump CABG x3 with endoscopic harvesting. The patient underwent thoracotomy, however, coronary artery bypass could not be performed. Friable ventricle and inability to expose target vessels 05/24/17 c/o left chest wall/incisional pain Left leg paresthesias 05/25/17 c/o anxiety, incisional pain Continues on heparin, plavix, asa. Oxygen requirement is increased this morning at 4 liters NC 05/26 Heparin gtt off since 4am, chest tube removed without difficulty nursing to remove left IJ CVC left chest wall incision intact and well approximated prevena dressing to chest on 2 liters nasal cannula continue pulm toileting BB on lower side, unable to start BB resume Heparin gtt in 4 hours / 05/27 PT for high risk PCI today + doppler pulses both feet did not sleep well last pm no chest pain Objective: GENERAL: SKIN: Warm and dry. prevena dressing to chest , incision intact left upper chest wall, and well approximated HEAD: Normocephalic. EYES: No scleral icterus. No injection or drainage. NECK: Supple, trachea midline. No JVD or lymphadenopathy. CARDIOVASCULAR: Regular rate and rhythm without murmurs, gallops, or rubs. RESPIRATORY: Breath sounds equal bilaterally. No accessory muscle use. diminished in bases GASTROINTESTINAL: Abdomen soft, non-tender, nondistended. MUSCULOSKELETAL: No cyanosis, or edema. BACK: Nontender without obvious deformity. No CVA tenderness. Vital Signs Date Time Temp Pulse Resp B/P (MAP) Pulse Ox O2 Delivery O2 Flow Rate FiO2 05/27/17 07:29 97 Nasal Cannula 5.00 05/27/17 06:30 18 05/27/17 03:22 97 Nasal Cannula 3.00 05/27/17 03:22 98.0 90 14 92/57 (69) 97 05/27/17 03:00 92 05/27/17 00:20 16 05/26/17 23:00 99.3 94 16 108/61 (77) 97 05/26/17 23:00 93 05/26/17 23:00 97 Nasal Cannula 3.00 05/26/17 20:55 96 Nasal Cannula 3.00 05/26/17 20:00 97.7 97 20 98/53 (68) 99 05/26/17 20:00 99 Nasal Cannula 3.00 05/26/17 20:00 90 05/26/17 15:00 92 05/26/17 15:00 97 Nasal Cannula 3.00 05/26/17 15:00 97.9 94 22 125/62 (83) 97 05/26/17 11:00 97.2 97 16 98/55 (69) 94 05/26/17 11:00 97 05/26/17 11:00 94 Nasal Cannula 3.00 Labs: Laboratory Tests Test 05/27/17 04:34 05/27/17 04:36 05/27/17 08:06 Blood Urea Nitrogen 10 MG/DL (7-18) Creatinine 0.59 MG/DL (0.60-1.30) Random Glucose 122 MG/DL (74-106) Calcium Level 8.4 MG/DL (8.5-10.1) Sodium Level 136 MEQ/L (136-145) Potassium Level 3.8 MEQ/L (3.5-5.1) Chloride Level 102 MEQ/L (98-107) Carbon Dioxide Level 24.8 MEQ/L (21.0-32.0) Anion Gap 9 MEQ/L (5-15) Estimat Glomerular Filtration Rate 138 ML/MIN (>89) White Blood Count 16.4 TH/MM3 (4.0-11.0) Red Blood Count 3.27 MIL/MM3 (4.50-5.90) Hemoglobin 9.8 GM/DL (13.0-17.0) Hematocrit 29.6 % (39.0-51.0) Mean Corpuscular Volume 90.3 FL (80.0-100.0) Mean Corpuscular Hemoglobin 29.8 PG (27.0-34.0) Mean Corpuscular Hemoglobin Concent 33.0 % (32.0-36.0) Red Cell Distribution Width 13.5 % (11.6-17.2) Platelet Count 297 TH/MM3 (150-450) Mean Platelet Volume 8.7 FL (7.0-11.0) Neutrophils (%) (Auto) 83.1 % (16.0-70.0) Lymphocytes (%) (Auto) 7.0 % (9.0-44.0) Monocytes (%) (Auto) 8.1 % (0.0-8.0) Eosinophils (%) (Auto) 1.1 % (0.0-4.0) Basophils (%) (Auto) 0.7 % (0.0-2.0) Neutrophils # (Auto) 13.6 TH/MM3 (1.8-7.7) Lymphocytes # (Auto) 1.2 TH/MM3 (1.0-4.8) Monocytes # (Auto) 1.3 TH/MM3 (0-0.9) Eosinophils # (Auto) 0.2 TH/MM3 (0-0.4) Basophils # (Auto) 0.1 TH/MM3 (0-0.2) CBC Comment DIFF FINAL Differential Comment Activated Partial Thromboplast Time 39.2 SEC (24.3-30.1) Result Diagram: 05/27/17 0436 05/27/17 0434 Telemetry: NSR (1) CAD (coronary artery disease) Plan: s/p sternotomy and thoracotomy leave prevena dressing in place 7 days post op pulm toileting for High risk PCI today (2) PAD (peripheral artery disease) (3) Left thoracotomy, left pneumonectomy Alicia Morgan May 27, 2017 09:49
[2017-05-27] MEDS ORDERED: HEPARIN SODIUM - IV 10,000 UNITS/10 ML VIAL ONE ×2 (10:09→14:55)
[2017-05-27] MEDS ORDERED: PHENYLEPHRINE HCL 10 MG/ML VIAL ONE ×2 (10:46→10:47)
[2017-05-27] MEDS ORDERED: CLOPIDOGREL 75 MG TAB ONE (11:07)
--- NOTE | 2017-05-27 11:26 | CATHPROC ---
[employer] HIS Report Study Information Study Number Scheduled Start Study Start [id number] 05/27/2017 May 27 2017 7:40AM Referring Institution Admit Source Facility Department 1 Other [facility] Motorman/Woman Physician and Clinical Staff Initial Harmeet Montiel Texturing Machine Fixer Inez Luis BSN Texturing Machine Fixer Rodolfo Toro,RN Other cathlab, cathlab Recorder Mamta Mace,REMOTE SENSING SPECIALIST TECH2 Scrub Pal Rose RCIS(BS) Procedures Performed Procedure Location (Site) Vessel Name Coronary Angiograms LCA Left Coronary Coronary Angiograms LAD Prox Left Coronary Drug Eluting Inflatio OM1 Prox CIRC PTCA OM1 Prox CIRC Wire insertion Fem Art (right) Femoral Art Equipment Time Dental Laboratory Worker Description Size Mfg Part Number Used/Scraped [id number] 09:39 [employer] WIRE, ASAHI FIELDER XT 300CM 300CM Used *[id number] WIRE, ASAHI MIRACLEBROS 12 [id number] 09:56 [employer] 300CM Used 300CM *[id number] WIRE, BALANCE MIDDLEWEIGHT [id number] 08:51 [employer] 300CM Used 300CM *[id number] 09:46 [employer] WIRE, GUEST SERVICES MANAGER 200 300CM 300CM Used *[id number] TRANSDUCER, TRUWAVE [id number] 08:34 FELIX RASHID * Used W/STOCKCOCK *[id number] INTRODUCER SET, 08:52 [employer] FR 5 [id number] *[id number] Used MICROPUNCTURE, STIFFENED [id number] 08:34 [facility] INDUSTRIES PACK, CCL CUSTOM * Used *[id number] BALLOON, 1.25 X 6MM SPRINTER [id number] 09:29 [employer] 6MM Used LEGEND OTW *[id number] 09:07 [employer] BALLOON, 2.5 X 12MM EUPHORA 12MM Used *[id number] BALLOON, 2.75 X 12MM NC [id number] 09:20 [employer] 12MM Used EUPHORA *[id number] 09:11 [employer] STENT, 2.75 15MM EDILIA 2.75 15MM Used *[id number] 08:51 [employer]/AVE EBU 3.5 Z2 GUIDE CATHETER FR 6 Used *[id number] 09:10 Cornice 30 MIGNON INDEFLATOR Used *[id number] [id number] 10:56 [employer] MEDICAL SHEATH, FR6.5 PRELUDE 11CM FR 6.5 038ACT Used *[id number] [id number] 08:34 [employer] MEDICAL WIRE, 3MMJ .035 180CM 180CM Used *[id number] 08:34 NAMIC MANIFOLD, 4 PORT * Used *[id number] 08:34 [employer]COMED OMNIPAQUE, 350 MG, 150ML 150ML [id number] Used [id number] 08:34 [employer] BL[employer]ET,WARM AIR CCL * Used *[id number] 10:21 [employer] MEDICAL/RENE CATHETER, FINECROSS 150CM FR 5 Used *[id number] CATHETER, TURNPIKE SPIRAL 10:07 VASCULAR [employer]UTIONS * [id number] *[id number] Used 135CM Equipment Model, Serial, Lot Number and Expiration Data Description Model Number Serial Number Lot Number Expiration Date CATHETER, FINECROSS 150CM [id number] 11-03-2018 STENT, 2.75 15MM EDILIA [id number] 12-11-2018 History: Current Medications Medication Dosage/Unit Route Frequency Last Date/Time Taken ASA Statins (any) NTG SL History: Allergies Allergy Reaction CRESTOR rosuvastatin albuterol History: Risk Factors Family History of Hypertension Dyslipidemia Previous [facility] Previous Heart Failure Premature CAD No Yes No No No Prior Valve Prior PCI Prior CABG Surgery No No No Cerebrovascular Peripheral Artery Chronic Lung On Dialysis Diabetes Disease Disease Disease No Yes Yes Yes No History: Symptoms/Diagnosis Selection Items Chest pain History: CV Disease Selection Items Known CAD History: Stress Tests Stress or Imaging Studies Performed No History: Other Disease Selection Items CAD COPD History: Other Current Smoker Method Packs a Day Years Used Pack Years Yes Cigarettes 1 50 50 Labs Hgb (g/dl) Hct (%) WBC (l/cumm) Platelets (thousands) 11.60-17.00 35.00-51.00 4.00-11.00 150.00-450.00 9.8 29.6 16.4 297 Glucose (mg/dl) BUN (mg/dl) Creatinine (mg/dl) BUN:Creatinine (1:x) 74.00-106.00 7.00-18.00 0.50-1.30 10.00-20.00 122 10 0.5 20 Na (meq/l) K (meq/l) 136.00-145.00 3.50-5.10 136 3.8 Medication Medication Total Dose (Bolus/Oral) Medication Total Dosage/Unit 1% XYLOCAINE 20 mL FENTANYL 25 mcg HEPARIN 97713 units LASIX 20 mg MORPHINE 10 mg PLAVIX 75 mg Medications (Bolus/Oral) Medication Time Given Dosage/Unit Administered By Reason FENTANYL 05/27/2017 8:44:45 AM 25 mcg Jose RafaelusAruna luisanda 25 mcg FENTANYL given in lab by Inez Luis BSN in Right Forearm via Peripheral IV. Ordered by Harmeet Escoto 1% XYLOCAINE 05/27/2017 8:49:34 AM 20 mL Aruna Luisanda 20 mL 1% XYLOCAINE given in lab by Inez Luis BSN in Right Groin via Subcutaneous. Ordered by Harmeet Escoto HEPARIN 05/27/2017 8:55:18 AM 5800 units Inez Luis 5800 units HEPARIN given in lab by Inez Luis BSN in Right Forearm via Peripheral IV. Order ed by Harmeet Escoto LASIX 05/27/2017 9:14:05 AM 20 mg Jose RafaelusInez luis 20 mg LASIX given in lab by Inez Luis BSN in Right Forearm via Peripheral IV. Ordered by Harmeet Garcia HEPARIN 05/27/2017 9:19:11 AM 2000 units Inez Luis 2000 units HEPARIN given in lab by Inez Luis BSN in Right Forearm via Peripheral IV. Order ed by Harmeet Escoto MORPHINE 05/27/2017 9:20:16 AM 2 mg Rodolfo Toro 2 mg MORPHINE given in lab by Rodolfo Toro RN in Right Forearm via Peripheral IV. Ordered by Harmeet Solorio MORPHINE 05/27/2017 9:26:55 AM 2 mg Rodolfo Toro 2 mg MORPHINE given in lab by Rodolfo Toro RN in Right Forearm via Peripheral IV. Ordered by Harmeet Solorio HEPARIN 05/27/2017 9:30:12 AM 2000 units Janelle Inez 2000 units HEPARIN given in lab by Inez Luis BSN in Right Forearm via Peripheral IV. Order ed by Harmeet Escoto MORPHINE 05/27/2017 9:54:59 AM 2 mg Janelle Inez 2 mg MORPHINE given in lab by Inez Luis BSN in Right Forearm via Peripheral IV. Ordered by Harmeet Escoto 05/27/2017 10:02:59 MORPHINE 2 mg Janelle Inez AM 2 mg MORPHINE given in lab by Inez Luis BSN in Right Forearm via Peripheral IV. Ordered by Harmeet Escoto 05/27/2017 10:10:45 HEPARIN 2000 units Janelle Inez AM 2000 units HEPARIN given in lab by Inez Luis BSN in Right Forearm via Peripheral IV. Order ed by Harmeet Escoto 05/27/2017 10:11:51 MORPHINE 2 mg Rodolfo Toro AM 2 mg MORPHINE given in lab by Rodolfo Toro RN in Right Forearm via Peripheral IV. Ordered by Harmeet Solorio 05/27/2017 11:09:58 PLAVIX 75 mg Inez Luis AM 75 mg PLAVIX given in lab by Inez Luis BSN via Oral. Ordered by Harmeet Escoto Medication (Drip) Medication Time Given Dosage/Unit Concentration/Unit Diluent (ml) Solution IV Solutions 05/27/2017 8:29:37 AM 0 mL (IV) 500 NaCl .9 IV Solutions given in lab by Rodolfo Toro RN in Right Forearm via Peripheral IV. Pump/Drip Flow = 2 0 ml/hr using NaCl .9. Ordered by Harmeet Escoto 05/27/2017 10:49:28 MARY-SYNEPHRINE 50 mcg AM 50 mcg MARY-SYNEPHRINE given in lab by Rodolfo Toro RN in Right Forearm via Peripheral IV. Ordered b y Harmeet Escoto NITROGLYCERIN DRIP 05/27/2017 9:18:31 AM 5 mcg/min 50 mg 250 D5W 5 mcg/min NITROGLYCERIN DRIP given in lab by Rodolfo Toro RN in Right Forearm via Peripheral IV. Pu mp/Drip Flow = 1.5 ml/hr using D5W with a concentration of 50 mg in 250 ml. Ordered by Harmeet Escoto NITROGLYCERIN DRIP 05/27/2017 9:23:07 AM 20 mcg/min 50 mg 250 NaCl .9 20 mcg/min NITROGLYCERIN DRIP given in lab by Rodolfo Toro RN in Right Forearm via Peripheral IV. P ump/Drip Flow = 6 ml/hr using NaCl .9 with a concentration of 50 mg in 250 ml. Ordered by Harmeet Escoto NITROGLYCERIN DRIP 05/27/2017 9:26:02 AM 15 mcg/min 50 mg 250 NaCl .9 15 mcg/min NITROGLYCERIN DRIP given in lab by Rodolfo Toro RN in Right Forearm via Peripheral IV. P ump/Drip Flow = 4.5 ml/hr using NaCl .9 with a concentration of 50 mg in 250 ml. Ordered by Harmeet Escoto NITROGLYCERIN DRIP 05/27/2017 9:28:51 AM 30 mcg/min 50 mg 250 NaCl .9 30 mcg/min NITROGLYCERIN DRIP given in lab by Rodolfo Toro RN in Right Forearm via Peripheral IV. P ump/Drip Flow = 9 ml/hr using NaCl .9 with a concentration of 50 mg in 250 ml. Ordered by Harmeet Escoto NITROGLYCERIN DRIP 05/27/2017 9:52:22 AM 40 mcg/min 50 mg 250 NaCl .9 40 mcg/min NITROGLYCERIN DRIP given in lab by Rodolfo Toro RN in Right Forearm via Peripheral IV. P ump/Drip Flow = 12 ml/hr using NaCl .9 with a concentration of 50 mg in 250 ml. Ordered by Harmeet Escoto 05/27/2017 10:18:37 NITROGLYCERIN DRIP 35 mcg/min 50 mg 250 NaCl .9 AM 35 mcg/min NITROGLYCERIN DRIP given in lab by Rodolfo Toro RN in Right Forearm via Peripheral IV. P ump/Drip Flow = 10.5 ml/hr using NaCl .9 with a concentration of 50 mg in 250 ml. Ordered by Harmeet Escoto 05/27/2017 10:31:06 NITROGLYCERIN DRIP 30 mcg/min 50 mg 250 NaCl .9 AM 30 mcg/min NITROGLYCERIN DRIP given in lab by Rodolfo Toro RN in Right Forearm via Peripheral IV. P ump/Drip Flow = 9 ml/hr using NaCl .9 with a concentration of 50 mg in 250 ml. Ordered by Harmeet Escoto 05/27/2017 10:54:06 NITROGLYCERIN DRIP 30 mcg/min 50 mg 250 NaCl .9 AM 30 mcg/min NITROGLYCERIN DRIP given in lab by Rodolfo Toro RN in Right Forearm via Peripheral IV. P ump/Drip Flow = 9 ml/hr using NaCl .9 with a concentration of 50 mg in 250 ml. Ordered by Harmeet Escoto Initial Case Assessment Cardiovascular HR NIBP Chest Pain 99 121/73 0 Edema Present Skin color Skin None Normal Warm Circulatory - Right Pulses Dorsalis Pedis Femoral d 1 Scale (0,1,2,3,4,d) Circulatory - Left Pulses Dorsalis Pedis Femoral d 1 Scale (0,1,2,3,4,d) Neurological State Oriented to time-place- Alert Moves all extremities person Respiration - General Respiration Rate SpO2 (%) O2 (lpm) (B/min) 17 100 5 Final Case Assessment Cardiovascular HR NIBP Chest Pain 107 107/70 0 Edema Present Skin color Skin None Normal Warm Circulatory - Right Pulses Dorsalis Pedis Femoral d 1 Scale (0,1,2,3,4,d) Circulatory - Left Pulses Dorsalis Pedis Femoral d 1 Scale (0,1,2,3,4,d) Neurological State Oriented to time-place- Alert Moves all extremities person Respiration - General Respiration Rate SpO2 (%) O2 (lpm) (B/min) 19 97 5 Chronological Log Time Study Chronological Log 8:20:55 Patient arrived via Bed. 8:20:56 Patient Name, D.O.B, / Armband Verified By R.N. Vitals capture started with the following parameters, Patient=Adult, Interval=5 min, Initial Pr sprjmy=260 mmHg, 8:29:12 Deflation Rate=5 mmHg, Cuff placed on Left Arm 8:29:26 Consent signed by the physician and the patient and verified by the Motorman/Woman staff. 8:29:27 Pre-op and post- op instructions given; patient acknowledges understanding of instructions. 8:29:29 Patient has been NPO for More than 6Hrs. 8:29:30 Skin Breakdown- 8:29:33 Jalil Prominences Protected 8:29:36 A # 20 IV was noted in the Forearm (right). Grade = 0 IV Solutions given in lab by Rodolfo Toro, RN in Right Forearm via Peripheral IV. Pump/Drip Fl ow = 20 ml/hr using NaCl 8:29:37 .9. Ordered by Harmeet Escoto 8:29:38 History and physical on the chart or being dictated. 8:29:54 HR=99 bpm, JRBY=904/73 mmhg, DtW2=337 %, Resp=17 B/min, Pain=5, Ignacio=10, Reid=2 Assessment: Initial Case, HR=99 BPM, PDEV=591/73 mmhg, Chest Pain=0, Edema=None, Color=Normal, Skin = Warm Right Pulses: Anand Ped=d, Femoral=1 8:30:49 Left Pulses: Anand Ped=d, Femoral=1 Neurological: State=Alert, Ox3, CAGLE Respiration: Resp=17 B/min, NxK7=145 %, O2=5 lpm 8:30:58 Reference ECG taken 8:34:49 HR=96 bpm, TEZL=555/76 mmhg, BxT3=030.0 %, Resp=17 B/min, Pain=5, Ignacio=10, Reid=2 8:39:50 HR=97 bpm, DRCY=358/69 mmhg, VqQ0=901 %, Resp=14 B/min, Pain=5, Ignacio=10, Reid=2 8:42:59 Right groin prepped with 2% chlorhexidine, and draped after a 3 min. waiting time. 8:43:18 Pressure channel 1 zeroed. 25 mcg FENTANYL given in lab by Inez Luis BSN in Right Forearm via Peripheral IV. Ord ered by Jevon, 8:44:45 Harmeet Hendricks 8:44:52 HR=93 bpm, EYLD=442/74 mmhg, DnT1=025.0 %, Resp=12 B/min, Pain=5, Ignacio=10, Reid=2 Time Out. Correct patient, correct procedure, correct physician, power injector loaded, or not l oaded with contrast with 8:48:23 surgical team present. Time Out Concurred by MD and individual staff in procedure. 8:49:26 Case Start 20 mL 1% XYLOCAINE given in lab by Inez Luis BSN in Right Groin via Subcutaneous. Ord ered by 8:49:34 Harmeet Escoto 8:49:51 HR=97 bpm, MTHI=771/75 mmhg, SpO2=98.0 %, Resp=16 B/min, Pain=5, Ignacio=10, Reid=2 8:50:56 Access site was Left Femoral Artery. A INTRODUCER SET, MICROPUNCTURE, STIFFENED FR 5 was advanced into the Fem Art (right) using the Modified 8:51:21 Seldinger technique. A SHEATH, FR6.5 PRELUDE 11CM FR 6.5 was exchanged in the Fem Art (right). This was necessary in order to achieve 8:53:11 vascular hemostasis. 8:53:40 An injection in the Fem Art (right) was made through the SHEATH, FR6.5 PRELUDE 11CM FR 6.5. 8:54:50 VA=355 bpm, DSDM=617/81 mmhg, SpO2=93.0 %, Resp=20 B/min 5800 units HEPARIN given in lab by Inez Luis BSN in Right Forearm via Peripheral IV. Ordered by 8:55:18 Harmeet Escoto A EBU 3.5 Z2 GUIDE CATHETER FR 6 was advanced over a wire. OMNIPAQUE, 350 MG, 150ML 150ML was us ed for 8:55:53 injections. 8:56:56 The LCA was injected and visualized at various angles. OMNIPAQUE, 350 MG, 150ML 150ML used. Recorded Pressure: Ao, WG=020, Condition=Condition 1 8:58:12 (Aorta) Ao 112/70/88 8:59:53 AH=032 bpm, IZRW=123/73 mmhg, SpO2=99.0 %, Resp=14 B/min, Pain=5, Ignacio=10, Reid=2 9:04:54 HR=97 bpm, MROT=793/79 mmhg, SzV7=209.0 %, Resp=13 B/min, Pain=5, Ignacio=10, Reid=2 9:05:39 A WIRE, BALANCE MIDDLEWEIGHT 300CM 300CM was inserted via Fem Art (right). CIRC 9:05:43 Interventional wire has crossed the lesion A BALLOON, 2.5 X 12MM EUPHORA 12MM was inserted over WIRE, BALANCE MIDDLEWEIGHT 300CM 300CM via the 9:09:03 OM1 Prox. A BALLOON, 2.5 X 12MM EUPHORA 12MM over a WIRE, BALANCE MIDDLEWEIGHT 300CM 300CM in the OM1 Prox was 9:09:30 inflated using a 30 MIGNON INDEFLATOR at 8 mignon for 20 sec. 9:09:57 WW=669 bpm, CAMJ=745/74 mmhg, SpO2=98.0 %, Resp=17 B/min, Pain=5, Ignacio=10, Reid=2 9:10:14 Balloon Removed. 20 mg LASIX given in lab by Inez Luis BSN in Right Forearm via Peripheral IV. Ordered by Jevon 9:14:05 Harmeet Hendricks 9:14:50 VL=183 bpm, EUIQ=018/87 mmhg, BnB3=607.0 %, Resp=19 B/min, Pain=5, Ignacio=10, Reid=2 9:15:49 Patient complaining of chest pain 9:16:05 Activated Clotting Time Drawn A STENT, 2.75 15MM EDILIA 2.75 15MM was advanced through a EBU 3.5 Z2 GUIDE CATHETER FR 6 over a W HI, 9:16:33 BALANCE MIDDLEWEIGHT 300CM 300CM. A STENT, 2.75 15MM EDILIA 2.75 15MM was deployed using a 30 MIGNON INDEFLATOR at 12 atmospheres for 1 5 seconds 9:17:51 in the OM1 Prox. 9:18:15 ACT (Normal Range 90-180) = 236 5 mcg/min NITROGLYCERIN DRIP given in lab by Rodolfo Toro RN in Right Forearm via Peripheral I V. Pump/Drip Flow 9:18:31 = 1.5 ml/hr using D5W with a concentration of 50 mg in 250 ml. Ordered by Harmeet Escoto 9:18:55 Delivery device removed 2000 units HEPARIN given in lab by Inez Luis BSN in Right Forearm via Peripheral IV. Ordered by 9:19:11 Harmeet Escoto 9:19:57 VO=385 bpm, EJRE=554/83 mmhg, SpO2=97 %, Resp=15 B/min, Pain=5, Ignacio=10, Reid=2 9:20:16 2 mg MORPHINE given in lab by Rodolfo Toro RN in Right Forearm via Peripheral IV. Ordered by Harmeet Escoto A BALLOON, 2.75 X 12MM NC EUPHORA 12MM was inserted over WIRE, BALANCE MIDDLEWEIGHT 300CM 300CM via 9:21:02 the OM1 Prox. A BALLOON, 2.75 X 12MM NC EUPHORA 12MM over a WIRE, BALANCE MIDDLEWEIGHT 300CM 300CM in the OM1 Prox 9:21:30 was inflated using a 30 MIGNON INDEFLATOR at 12 mignon for 15 sec. A BALLOON, 2.75 X 12MM NC EUPHORA 12MM over a WIRE, BALANCE MIDDLEWEIGHT 300CM 300CM in the OM1 Prox 9:22:06 was inflated using a 30 MIGNON INDEFLATOR at 114 mignon for 15 sec. 20 mcg/min NITROGLYCERIN DRIP given in lab by Rodolfo Toro RN in Right Forearm via Peripheral IV. Pump/Drip Flow 9:23:07 = 6 ml/hr using NaCl .9 with a concentration of 50 mg in 250 ml. Ordered by Harmeet Escoto 9:23:27 Balloon Removed. 9:24:56 PQ=726 bpm, JWBC=960/86 mmhg, SpO2=97 %, Resp=14 B/min, Pain=5, Ignacio=10, Reid=2 9:25:18 Activated Clotting Time Drawn 15 mcg/min NITROGLYCERIN DRIP given in lab by Rodolfo Toro RN in Right Forearm via Peripheral IV. Pump/Drip Flow 9:26:02 = 4.5 ml/hr using NaCl .9 with a concentration of 50 mg in 250 ml. Ordered by Harmeet Escoto 9:26:55 2 mg MORPHINE given in lab by Rodolfo Toro RN in Right Forearm via Peripheral IV. Ordered by Harmeet Escoto 30 mcg/min NITROGLYCERIN DRIP given in lab by Rodolfo Toro RN in Right Forearm via Peripheral IV. Pump/Drip Flow 9:28:51 = 9 ml/hr using NaCl .9 with a concentration of 50 mg in 250 ml. Ordered by Harmeet Escoto 9:29:51 ACT (Normal Range 90-180) = 240 9:29:57 XL=644 bpm, YGXH=461/73 mmhg, SpO2=96 %, Resp=16 B/min, Pain=5, Ignacio=10, Reid=2 2000 units HEPARIN given in lab by Inze Luis BSN in Right Forearm via Peripheral IV. Ordered by 9:30:12 Harmeet Escoto 9:34:56 DH=762 bpm, PUCV=547/68 mmhg, SpO2=96 %, Resp=19 B/min, Pain=5, Ignacio=10, Reid=2 9:35:24 Wire removed 9:35:25 A WIRE, BALANCE MIDDLEWEIGHT 300CM 300CM was inserted via Fem Art (right). LAD 9:36:59 Activated Clotting Time Drawn 9:39:40 ACT (Normal Range 90-180) = 276 9:39:55 HB=978 bpm, RPTN=061/62 mmhg, SpO2=95.0 %, Resp=15 B/min, Pain=5, Ignacio=10, Reid=2 A BALLOON, 1.25 X 6MM SPRINTER LEGEND OTW 6MM was inserted over WIRE, BALANCE MIDDLEWEIGHT 300C M 9:39:55 300CM via the LAD Prox. 9:40:26 The previous wire was exchanged for a WIRE, [employer] FIELDER XT 300CM 300CM. 9:44:54 ZS=106 bpm, QDLI=260/70 mmhg, SpO2=96 %, Resp=19 B/min, Pain=5, Ignacio=10, Reid=2 9:46:30 The previous wire was exchanged for a WIRE, GUEST SERVICES MANAGER 200 300CM 300CM. 9:49:55 KA=434 bpm, GZWV=323/71 mmhg, SpO2=96.0 %, Resp=19 B/min, Pain=5, Ignacio=10, Reid=2 40 mcg/min NITROGLYCERIN DRIP given in lab by Rodolfo Toro, RN in Right Forearm via Peripheral IV. Pump/Drip Flow 9:52:22 = 12 ml/hr using NaCl .9 with a concentration of 50 mg in 250 ml. Ordered by Harmeet Escoto 9:53:18 Interventional wire has crossed the lesion 9:54:54 UV=599 bpm, PTIS=097/81 mmhg, SpO2=97 %, Resp=15 B/min, Pain=5, Ignacio=10, Reid=2 2 mg MORPHINE given in lab by Inez Luis BSN in Right Forearm via Peripheral IV. Orde red by Jevon, 9:54:59 Harmeet Hendricks 9:57:01 The previous wire was exchanged for a WIRE, GUS GARNETT 12 300CM 300CM. 9:59:57 KW=892 bpm, FJJW=376/79 mmhg, SpO2=97 %, Resp=20 B/min, Pain=5, Ignacio=10, Reid=2 10:00:38 Interventional wire has crossed the lesion 2 mg MORPHINE given in lab by Inez Luis BSN in Right Forearm via Peripheral IV. Orde red by Jevon, 10:02:59 Harmeet Hendricks 10:04:56 HR=402 bpm, PWPY=086/67 mmhg, Resp=17 B/min, Pain=5, Ignacio=10, Reid=2 10:05:59 Balloon Removed. A CATHETER, TURNPIKE SPIRAL 135CM * was advanced over a wire. OMNIPAQUE, 350 MG, 150ML 150ML wa s used 10:06:23 for injections. 10:10:00 MS=158 bpm, WQFS=032/64 mmhg, SpO2=98.0 %, Resp=15 B/min, Pain=5, Ignacio=10, Reid=2 2000 units HEPARIN given in lab by Inez Luis BSN in Right Forearm via Peripheral IV. Ordered by 10:10:45 Harmeet Escoto 10:11:51 2 mg MORPHINE given in lab by Rodolfo Toro RN in Right Forearm via Peripheral IV. Ordered by Harmeet Escoto 10:14:57 BR=283 bpm, RXOL=402/70 mmhg, SpO2=96 %, Resp=16 B/min, Pain=5, Ignacio=10, Reid=2 35 mcg/min NITROGLYCERIN DRIP given in lab by Rodolfo Toro RN in Right Forearm via Peripheral IV. Pump/Drip Flow 10:18:37 = 10.5 ml/hr using NaCl .9 with a concentration of 50 mg in 250 ml. Ordered by Jesus Escoto 10:19:56 UX=391 bpm, NIBP=99/63 mmhg, SpO2=96 %, Resp=17 B/min, Pain=5, Ignacio=10, Reid=2 After removing the current catheter a CATHETER, FINECROSS 150CM FR 5 was advanced over a WIRE, ASAHI 10:23:39 MIRACLEBROS 12 300CM 300CM. 10:24:57 PT=378 bpm, XCAY=197/66 mmhg, SpO2=93 %, Resp=17 B/min, Pain=5, Ignacio=10, Reid=2 10:27:00 Wire removed 10:27:11 The LAD Prox was injected and visualized at various angles. OMNIPAQUE, 350 MG, 150ML 150ML used. 30ML 10:29:58 CY=591 bpm, AQLZ=757/64 mmhg, SpO2=96 %, Resp=15 B/min, Pain=5, Ignacio=10, Reid=2 30 mcg/min NITROGLYCERIN DRIP given in lab by Rodolfo Toro RN in Right Forearm via Peripheral IV. Pump/Drip Flow 10:31:06 = 9 ml/hr using NaCl .9 with a concentration of 50 mg in 250 ml. Ordered by Harmeet Escoto 10:33:34 Activated Clotting Time Drawn 10:34:57 HL=824 bpm, DBBR=737/69 mmhg, SpO2=97 %, Resp=14 B/min, Pain=5, Ignacio=10, Reid=2 10:40:00 DD=278 bpm, WRGT=561/70 mmhg, SpO2=96 %, Resp=13 B/min, Pain=5, Ignacio=10, Reid=2 10:43:07 STAT ECHO IN PROGRESS 10:44:59 PR=617 bpm, DCAY=099/72 mmhg, SpO2=97 %, Resp=16 B/min, Pain=5, Ignacio=10, Reid=2 10:46:13 NITRO DISCONTINUED 10:47:39 Catheter was removed 50 mcg MARY-SYNEPHRINE given in lab by Rodolfo Toro, RN in Right Forearm via Peripheral IV. Ord ered by Jevon, 10:49:28 Harmeet Hendricks 10:50:00 SD=876 bpm, NIBP=96/57 mmhg, SpO2=96 %, Resp=15 B/min, Pain=5, Ignacio=10, Reid=2 10:53:10 Case End 30 mcg/min NITROGLYCERIN DRIP given in lab by Burfield, Rodolfo, RN in Right Forearm via Peripheral IV. Pump/Drip Flow 10:54:06 = 9 ml/hr using NaCl .9 with a concentration of 50 mg in 250 ml. Ordered by Harmeet Escoto 10:54:59 EN=168 bpm, JUCK=462/70 mmhg, SpO2=98.0 %, Resp=17 B/min, Pain=5, Ignacio=10, Reid=2 10:55:10 In the Fem Art (right) the SHEATH, FR6.5 PRELUDE 11CM FR 6.[address] by Harmeet Solorio 11:00:02 ES=158 bpm, WKJD=928/70 mmhg, SpO2=97.0 %, Resp=19 B/min, Pain=5, Ignacio=10, Reid=2 11:03:22 Sterile dressing applied to site 11:03:34 Cine recording checked. 11:04:21 Implantable Device card placed in patient's chart. 11:04:24 Contrast Scanned 11:04:32 Bedside Report will be given. 11:05:05 Vitals capture stopped. Assessment: Final Case, DW=669 BPM, XVJU=518/70 mmhg, Chest Pain=0, Edema=None, Color=Normal, S kin = Warm Right Pulses: Anand Ped=d, Femoral=1 11:05:23 Left Pulses: Anand Ped=d, Femoral=1 Neurological: State=Alert, Ox3, CAGLE Respiration: Resp=19 B/min, SpO2=97 %, O2=5 lpm 11:09:51 Patient moved to [facility] 11:09:58 75 mg PLAVIX given in lab by Inez Luis BSN via Oral. Ordered by Gee Escoto 11:10:13 Clinical correlaton risk stratification. End Study - Contrast Media Used In Study Contrast Total Opened (mL) Total Used (mL) Total Wasted (mL) Omnipaque 150 150 0 End Study - Maximum Contrast Load Max Contrast Load (mL) 850.0 End Study - Radiation Exposure Fluoro Time (minutes) 36.5 End Study - Patient Disposition Complications Transferred To Interventional Outcome No Critical Care Bed incomplete
[2017-05-27] MEDS ORDERED: SODIUM CHLOR 0.9% 250 ML INJ 250 ML IV PRN (11:30)
[2017-05-27] MEDS ORDERED: MISC INFORMATION XX ONE (11:30)
[2017-05-27] MEDS ORDERED: ATROPINE SULFATE 1 MG/ML VIAL IV PUSH PRN (11:30)
[2017-05-27] MEDS ORDERED: IOHEXOL 350 MG/ML 50 ML BTL (for Cath Lab) OTHER ONE (11:47)
[2017-05-27] MEDS ORDERED: IOHEXOL 350 MG/ML 100 ML BTL (for Cath Lab) OTHER ONE (11:47)
[2017-05-27] MEDS: LOW DOSE INSULIN NOVOLOG SUPPLEMENTAL SCALE SQ SCH ×3 (12:00→20:41)
[2017-05-27] MEDS ORDERED: ATROPINE SULFATE 1 MG/10 ML SYRINGE ONE (12:12)
[2017-05-27] MEDS ORDERED: EPINEPHrine HCL (1:10,000) 1 MG/10 ML SYRINGE ONE (12:12)
[2017-05-27] MEDS ORDERED: TERBUTALINE INJ 1 MG/ML AMP SQ PRN (13:15)
[2017-05-27] MEDS: PHENYLEPHRINE 40 MG in D5W 500 ML IV PRN (13:26)
[2017-05-27] MEDS: MORPHINE SULFATE 2 MG/ML INJ IV PUSH PRN ×3 (13:53→20:22)
[2017-05-27] MEDS: FUROSEMIDE 40 MG/4 ML VIAL IV PUSH SCH (13:55)
[2017-05-27] MEDS: GABAPENTIN 300 MG CAP PO SCH ×3 (13:55→18:04)
[2017-05-27] MEDS: SODIUM CHLORIDE 0.9% FLUSH 10 ML FLUSH IV FLUSH SCH ×2 (14:00→20:27)
[2017-05-27] MEDS: POTASSIUM CHLORIDE 10 MEQ CONTROLLED RELEASE TAB PO SCH (14:10)
[2017-05-27] MEDS: SERTRALINE HCL 50 MG TAB PO SCH (14:11)
--- NOTE | 2017-05-27 18:36 | HHI.CCPN ---
Subjective Remarks/Hospital Course The patient is a 67-year-old male with past medical history of coronary artery disease, peripheral vascular disease, atrial fibrillation, prostate cancer, CVA , history of lung cancer status post left pneumonectomy in May 2016. He was admitted to [facility] on May 22, [address] Escoto's service for unstable angina. He underwent cardiac catheterization yesterday which showed multivessel coronary artery disease with 99% occluded LAD, 90% diagonal disease and 100% occluded RCA. Cardiothoracic surgery was consulted for evaluation of CABG. The patient was seen by Dr. Kyle who recommended off- pump CABG x3 with endoscopic harvesting. The patient underwent thoracotomy, however, coronary artery bypass could not be performed. The patient remained on mechanical ventilation and Critical Care Medicine was consulted for critical care management. 05/24: Up in chair, breathing comfortably. Some bronchospasm right side. Add Atrovent. Patient gets quite tachycardic on beta agonists apparently. Right lung well expanded. 05/25: anxious overnight. patient states that he gets anxious when he doesn't take his zoloft. this was restarted today. otherwise, denies complaints. HR slightly elevated at 92. chest tube with minimal serosanguinous output. 05/26: doing well. slightly hypotensive. plan for LHC with high risk PCI tomorrow. chest tubes d/c'd. 05/27: high risk pci attempted with coronary perforation. small pericardial effusion. LV EF acutely depressed. new chest pain. taken from cathead operator to ICU. on ntg and phenylephrine for coronary perfusion. I evaluated in ICU. chest pain slowly improving. good distal perfusion to extremities. Objective Vital Signs Date Time Temp Pulse Resp B/P (MAP) Pulse Ox O2 Delivery O2 Flow Rate FiO2 05/27/17 15:00 95 Nasal Cannula 6.00 05/27/17 15:00 97.7 101 12 104/64 (77) 05/23/17 15:00 40 Intake and Output 05/27/17 05/27/17 05/28/17 08:00 16:00 00:00 Intake Total 340 ml 670.2 ml Output Total 400 ml 1350 ml Balance -60 ml -679.8 ml Result Diagram: 05/27/17 0436 05/27/17 0434 Objective Remarks PHYSICAL EXAMINATION GENERAL: A 67-year-old male, conversant, lying in bed, slightly somnolent. HEENT: Atraumatic, normocephalic. Pupils equal, round and reactive to light and accommodation. Extraocular muscles intact. Conjunctiva pink. Non-icteric sclera. NECK: Supple. Trachea is shifted to left. Airway widely patent. CARDIOVASCULAR: Regular rate and rhythm. No JVD. midline sternotomy with wound vac in place. PULMONARY: No breath sounds on the left. No crackles or wheezing on the right. ABDOMEN: Soft, nontender, no distention. EXTREMITIES: No cyanosis, clubbing. new trace edema of the LEs. Well perfused. groin site without hematoma. NEUROLOGIC: Alert, O X 3, conversant. A/P Assessment and Plan IMPRESSION: 1. S/P sternotomy, left thoracotomy. 2. Coronary artery disease. 3. Status post cardiac cath on May 22, 2017, which showed multivessel disease. 4. Unstable angina. 5. COPD. 6. Previous left pneumonectomy May 2016. 7. History of lung cancer. 8. History of atrial fibrillation. 9. Peripheral vascular disease. 10. s/p high risk PCI: unsuccessful 11. active chest pain 12. acutely depressed LVEF 13. small pericardial effusion 14. cardiogenic shock PLAN/RECOMMENDATIONS: 1. continue NTG 2. continue phenylephrine for coronary perfusion 3. monitor groin sites 4. hold diuresis and beta blockers 5. frequent neurovascular checks. 6. Continue with cardiac meds as ordered which include aspirin 81 mg daily, Plavix 75 mg daily. 7. Monitor renal function, I's and O's, and electrolyte replacement per protocol. 8. heart healthy diet as tolerated. 9. SSI 10.GI prophylaxis with Protonix 40 mg daily and DVT prophylaxis with SCDs for now. Overall impression: unstable post cardiac cath requiring vasopressors. no feasible options for coronary revascularization. manage conservatively with ntg and claudio gtt to improve perfusion. if no improvement in a few days, may need to get palliative care involved, as very poor coronary perfusion at this point. critically ill today. Critical care time: 40 minutes, exclusive of procedures. Omar Bucio MD May 27, 2017 18:36
--- NOTE | 2017-05-27 18:54 | ECHRPT ---
Indication: CONCLUSIONS Technically difficult study In limited views, the left ventricular systolic function is severely reduced with an estimated eject ion fraction in the range of 25-30%. Trace pericardial effusion. Left pleural effusion. BP: / HR: Rhythm: Technical Quality:Poor FINDINGS LEFT VENTRICLE Normal left ventricular size. In limited views, the left ventricular systolic function is severely reduced with an estimated eject ion fraction in the range of 25-30%. RIGHT VENTRICLE The right ventricle was not well visualized. MITRAL VALVE Structurally normal mitral valve. AORTIC VALVE Trileaflet aortic valve. TRICUSPID VALVE The tricuspid valve is not well visualized. PULMONARY VALVE The pulmonary valve is not well visualized. PERICARDIUM Trace pericardial effusion. Left pleural effusion. Harmeet Escoto DO (Electronically Signed) Final Date:27 May 2017 18:52
[2017-05-27] MEDS: ATORVASTATIN 40 MG TAB PO SCH (20:24)
[2017-05-27] MEDS: MONTELUKAST SODIUM 10 MG TAB PO SCH (20:24)
--- NOTE | 2017-05-27 22:53 | PD.CARD.PN ---
Subjective Subjective Remarks Patient was seen post-cath around noon, late entry note Hemodynamically stable, on nitro, chest pain minimal Objective Medications Current Medications Medications (Trade) Dose Ordered Sig/Theron Route Start Time Stop Time Status Last Admin Sodium Chloride 1,000 ml @ 30 mls/hr Q24H IV 05/22/17 07:30 05/22/17 07:30 (Lipitor) 40 mg HS PO 05/22/17 21:00 05/27/17 20:24 (Neurontin) 300 mg TID PO 05/22/17 13:00 05/27/17 18:04 (NS Flush) 2 ml BID IV FLUSH 05/23/17 21:00 05/27/17 20:27 (NS Flush) 2 ml UNSCH PRN IV FLUSH 05/23/17 12:00 (Aspirin Chew) 81 mg DAILY PO 05/24/17 09:00 05/26/17 09:34 (Plavix) 75 mg DAILY PO 05/24/17 09:00 05/26/17 09:33 (Protonix) 40 mg DAILY@06 PO 05/24/17 06:00 05/27/17 05:05 (Tylenol) 650 mg Q4H PRN PO 05/23/17 12:00 05/26/17 06:25 (Percocet 5-325 Mg) 1 tab Q3H PRN PO 05/23/17 12:00 05/27/17 05:07 (Percocet 5-325 Mg) 2 tab Q3H PRN PO 05/23/17 12:00 05/27/17 18:16 (Zofran Inj) 4 mg Q6H PRN IV PUSH 05/23/17 12:00 (Apresoline Inj) 10 mg Q4H PRN IV PUSH 05/23/17 12:00 (Lopressor Inj) 2.5 mg Q1H PRN IV PUSH 05/23/17 12:00 05/25/17 07:53 (Atrovent Neb) 0.5 mg Q6HR NEB NEB 05/24/17 06:45 05/27/17 20:14 (D50w (Vial) Inj) 50 ml UNSCH PRN IV PUSH 05/24/17 17:00 (Glucagon Inj) 1 mg UNSCH PRN OTHER 05/24/17 17:00 (NovoLOG SUPPLEMENTAL SCALE) 1 ACHS SLIDING SCALE SQ 05/24/17 17:00 05/25/17 21:19 (Xanax) 0.5 mg Q8H PRN PO 05/25/17 04:30 05/27/17 13:54 (Atrovent Neb) 0.5 mg Q4HR NEB PRN NEB 05/25/17 04:30 (Zoloft) 50 mg DAILY PO 05/25/17 09:00 05/27/17 14:11 (Singulair) 10 mg HS PO 05/25/17 21:00 05/27/17 20:24 (Lasix Inj) 40 mg DAILY IV PUSH 05/25/17 10:15 05/27/17 13:55 (KCl) 30 meq DAILY PO 05/27/17 09:00 05/27/17 14:10 (Morphine Inj) 2 mg Q30M PRN IV PUSH 05/27/17 12:15 05/27/17 20:22 (Atropine Inj) 0.5 mg UNSCH PRN IV PUSH 05/27/17 11:30 Sodium Chloride 250 ml @ 500 mls/hr UNSCH X1 PRN IV 05/27/17 11:30 05/28/17 11:29 Phenylephrine HCl 40 mg/Dextrose 500 ml @ 30 mls/hr TITRATE PRN IV 05/27/17 14:00 05/27/17 13:26 (Brethine Inj) 1 mg UNSCH PRN SQ 05/27/17 13:15 Vital Signs / I&O Vital Signs Date Time Temp Pulse Resp B/P (MAP) Pulse Ox O2 Delivery O2 Flow Rate FiO2 05/27/17 20:15 96 Nasal Cannula 3.00 05/27/17 19:00 93 Nasal Cannula 3.00 05/27/17 19:00 106 05/27/17 19:00 98.3 107 15 100/56 (71) 95 05/27/17 15:00 95 Nasal Cannula 6.00 05/27/17 15:00 97.7 101 12 104/64 (77) 95 05/27/17 15:00 101 05/27/17 15:00 104 05/27/17 13:26 104 89/61 05/27/17 11:30 97 Nasal Cannula 6.00 05/27/17 11:30 97.7 104 12 103/64 (77) 97 05/27/17 11:30 104 05/27/17 10:49 98 78/48 05/27/17 09:18 98 109/78 05/27/17 07:29 97 Nasal Cannula 5.00 05/27/17 07:10 95 Nasal Cannula 5.00 05/27/17 07:10 96 05/27/17 07:10 97.8 96 24 91/58 (69) 99 05/27/17 06:30 18 05/27/17 03:22 97 Nasal Cannula 3.00 05/27/17 03:22 98.0 90 14 92/57 (69) 97 05/27/17 03:00 92 05/27/17 00:20 16 05/26/17 23:00 99.3 94 16 108/61 (77) 97 05/26/17 23:00 93 05/26/17 23:00 97 Nasal Cannula 3.00 I/O 05/26/17 05/26/17 05/26/17 05/27/17 05/27/17 05/27/17 07:00 15:00 23:00 07:00 15:00 23:00 Intake Total 300 ml 1154 ml 340 ml 670.2 ml Output Total 200 ml 1050 ml 400 ml 1350 ml Balance 100 ml 104 ml -60 ml -679.8 ml Intake Oral 300 ml 950 ml 340 ml 450 ml IV Total 204 ml 220.2 ml Output Urine Total 200 ml 1050 ml 400 ml 1350 ml Chest Tube Drainage Total 0 ml # Voids 1 4 2 # Bowel Movements 0 0 Physical Exam GENERAL: NAD, AAOx3 SKIN: Warm and dry. HEAD: Atraumatic. Normocephalic. EYES: Pupils equal and round. No scleral icterus. No injection or drainage. ENT: No nasal bleeding or discharge. Mucous membranes pink and moist. NECK: Trachea midline. No JVD. CARDIOVASCULAR: Regular rate and rhythm. Sternotomy RESPIRATORY: No accessory muscle use. Clear to auscultation. Breath sounds equal bilaterally. GASTROINTESTINAL: Abdomen soft, non-tender, nondistended. Hepatic and splenic margins not palpable. MUSCULOSKELETAL: Extremities without clubbing, cyanosis, or edema. Left lower extremity mildly colder than the right NEUROLOGICAL: Awake and alert. No obvious cranial nerve deficits. Motor grossly within normal limits. Five out of 5 muscle strength in the arms and legs. Normal speech. PSYCHIATRIC: Appropriate mood and affect; insight and judgment normal. Laboratory Laboratory Tests Test 05/27/17 04:34 05/27/17 04:36 05/27/17 08:06 Blood Urea Nitrogen 10 MG/DL Creatinine 0.59 MG/DL Random Glucose 122 MG/DL Calcium Level 8.4 MG/DL Sodium Level 136 MEQ/L Potassium Level 3.8 MEQ/L Chloride Level 102 MEQ/L Carbon Dioxide Level 24.8 MEQ/L Anion Gap 9 MEQ/L Estimat Glomerular Filtration Rate 138 ML/MIN White Blood Count 16.4 TH/MM3 Red Blood Count 3.27 MIL/MM3 Hemoglobin 9.8 GM/DL Hematocrit 29.6 % Mean Corpuscular Volume 90.3 FL Mean Corpuscular Hemoglobin 29.8 PG Mean Corpuscular Hemoglobin Concent 33.0 % Red Cell Distribution Width 13.5 % Platelet Count 297 TH/MM3 Mean Platelet Volume 8.7 FL Neutrophils (%) (Auto) 83.1 % Lymphocytes (%) (Auto) 7.0 % Monocytes (%) (Auto) 8.1 % Eosinophils (%) (Auto) 1.1 % Basophils (%) (Auto) 0.7 % Neutrophils # (Auto) 13.6 TH/MM3 Lymphocytes # (Auto) 1.2 TH/MM3 Monocytes # (Auto) 1.3 TH/MM3 Eosinophils # (Auto) 0.2 TH/MM3 Basophils # (Auto) 0.1 TH/MM3 CBC Comment DIFF FINAL Differential Comment Activated Partial Thromboplast Time 39.2 SEC Assessment and Plan Problem List: (1) CAD (coronary artery disease) ICD Codes: I25.10 - Atherosclerotic heart disease of [place] coronary artery without angina pectoris (2) PAD (peripheral artery disease) ICD Codes: I73.9 - Peripheral vascular disease, unspecified Status: Chronic (3) Left thoracotomy, left pneumonectomy Status: Acute Assessment and Plan 1) CAD Unable to perform CABG PCI LCx with NIKHIL LAD with previous minimal flow now occluded, attempted to open but unable to Small perforation of diagonal, echo showing trace pericardial effusion Con't ASA/Plavix Will have to con't medical management of CAD 2) PAD Harmeet Escoto DO May 27, 2017 22:53
[2017-05-28] VITALS (9 sets, daily range): BP systolic 88–106; BP diastolic 52–69; PULSE 93–124; RESP 12–22; TEMP 97.4–98; O2SAT 92–100
[2017-05-28] MEDS: PHENYLEPHRINE 40 MG in D5W 500 ML IV PRN (00:20)
[2017-05-28] MEDS: RESP: IPRATROPIUM 0.5 MG/2.5 ML NEB NEB SCH ×2 (03:16→09:31)
[2017-05-28] MEDS: oxyCODONE/ACETAMINOPHEN 5 MG/325 MG TAB PO PRN ×2 (03:46→09:43)
[2017-05-28] MEDS ORDERED: NITROGLYCERIN-D5W 50 MG/250 ML 250 ML ONE (03:59)
[2017-05-28 05:26] LABS: APTT (PATIENT) 28.2 SEC (24.3-30.1)
[2017-05-28 05:37] LABS: BICARBONATE 28.3 MEQ/L (21.0-32.0); POTASSIUM 3.8 MEQ/L (3.5-5.1)
[2017-05-28] MEDS: PANTOPRAZOLE SOD 40 MG DELAYED RELEASE TAB PO SCH (05:59)
--- NOTE | 2017-05-28 06:42 | PD.VS.PN ---
Subjective Subjective/Hospital Course Pt s/p LHC and LCx intervention Reportedly 4 beats of ventricular ectopy last night but pt denies CP + SOB but not new reports legs ok. Objective Vitals/I&O Date Time Temp Pulse Resp B/P (MAP) Pulse Ox O2 Delivery O2 Flow Rate FiO2 05/28/17 05:10 95 95/56 05/28/17 03:30 98.0 98 12 95/69 (78) 100 05/28/17 03:30 100 Nasal Cannula 3.00 05/28/17 03:30 97 05/28/17 00:20 104 91/57 05/27/17 23:55 12 05/27/17 23:51 12 05/27/17 23:36 97.9 99 11 93/56 (68) 96 05/27/17 23:36 96 Nasal Cannula 3.00 05/27/17 23:36 102 05/27/17 20:15 96 Nasal Cannula 3.00 05/27/17 19:00 93 Nasal Cannula 3.00 05/27/17 19:00 106 05/27/17 19:00 98.3 107 15 100/56 (71) 95 05/27/17 15:00 95 Nasal Cannula 6.00 05/27/17 15:00 97.7 101 12 104/64 (77) 95 05/27/17 15:00 101 05/27/17 15:00 104 05/27/17 13:26 104 89/61 05/27/17 11:30 97 Nasal Cannula 6.00 05/27/17 11:30 97.7 104 12 103/64 (77) 97 05/27/17 11:30 104 05/27/17 10:49 98 78/48 05/27/17 09:18 98 109/78 05/27/17 07:29 97 Nasal Cannula 5.00 05/27/17 07:10 95 Nasal Cannula 5.00 05/27/17 07:10 96 05/27/17 07:10 97.8 96 24 91/58 (69) 99 05/28/17 05/28/17 05/28/17 07:00 15:00 23:00 Intake Total 1296 ml Output Total 450 ml Balance 846 ml Physical Exam motor intact B LE no palpable pulses L LE Laboratory Laboratory Tests Test 05/27/17 08:06 05/28/17 04:47 Activated Partial Thromboplast Time 39.2 28.2 Blood Urea Nitrogen 10 Creatinine 0.44 Random Glucose 136 Calcium Level 7.9 Sodium Level 137 Potassium Level 3.8 Chloride Level 100 Carbon Dioxide Level 28.3 Anion Gap 9 Estimat Glomerular Filtration Rate 193 Assessment and Plan Plan Chronic PAD, aorto-iliac on L LE Revascularization will be complex and needs to wait until cardiac issues resolved or at least stabilized will continue to follow but plan no intervention unless legs worsen needs aggressive PT when ok from cardiology standpoint Fidel Menendez MD FACS [employer] community support worker [facility] - [facility] V[facility] Surgery at [facility] [phone] Fidel Menendez MD May 28, 2017 06:42
--- NOTE | 2017-05-28 07:06 | MA ---
cc: HARMEET CELAYA DO DATE May 27, 2017 PROCEDURE Coronary angiogram, complex case, Geraldo drug-eluting stent (2.75 x 15) to the first obtuse marginal, attempted COUNTY CORONER of LAD, unsuccessful. PREPROCEDURE DIAGNOSIS Unstable angina ([place] Anginal Class IV), multivessel coronary artery disease with attempted CABG but unable to bypass vessels. POSTPROCEDURE DIAGNOSIS Multivessel coronary artery disease status post Geraldo drug-eluting stent (2.75 x 15) to the first obtuse marginal, COUNTY CORONER of LAD status post perforation. MEDICATIONS 1. Fentanyl 25 mcg. 2. Heparin 10,800 units. 3. Lasix 20 mg. 4. Nitroglycerin drip. 5. Morphine 10 mg. 6. Plavix 75 mg. CONTRAST USED 150 cc. FLUOROSCOPY 36.5 minutes. ESTIMATED BLOOD LOSS 20 cc. PROCEDURAL SUMMARY Francisco Javier Swartz is a pleasant 67-year-old male who I see in the office who presented with unstable angina. He underwent cardiac catheterization and was found to have multivessel disease. He was evaluated by Surgery and they attempted coronary artery bypass grafting but were unable to due to rotation of the heart as well as fibrosis from previous surgery. Because of this I discussed with him consideration of high risk PCI as he had continual chest pain. The risks, benefits and alternatives were explained to him and his family and he consented as such. He was brought to the lab and prepped in the usual sterile fashion. The right femoral artery was accessed using a modified Seldinger technique and placement of a 6-Bulgarian sheath. This was easily aspirated and flushed. An EBU 3.5 guide was then advanced over a J-wire and engaged into the left main. The patient was given heparin as an anticoagulant. During initial angiograms it was noted that previously there was slow flow through his LAD on the diagnostic imaging but now no flow was noted down the LAD. Because of the significant disease in his circumflex, as this supplied a lot of collaterals to his right coronary artery which is chronically occluded, it was felt that this should be intervened on first. A BMW wire was advanced down the obtuse marginal. A Compliant balloon (2.5 x 12) was then used to predilate the lesion. An Austin drug-eluting stent (2.75 x 15) was then inflated over the lesion. This was postdilated with a Non-Compliant balloon (2.75 x 12). Mr. Swartz continued to have chest pain, so I felt that I needed to attempt to open the LAD. The BMW wire was then pulled back and advanced to the LAD. This was unable to cross the COUNTY CORONER of the LAD and so an [id number] balloon was placed and the BMW wire was exchanged for a Fielder XT and then a Chisel Trimmer 200 and then a Miracle Brothers 12. The Miracle Brothers 12 was advanced past the lesion and the wire tip was felt to move freely. As I was unable to advance it into the distal portion of the LAD, it was placed distally into a diagonal. I attempted to take a Turnpike across the chronic lesion in the LAD but was unable to so this was exchanged out for a FINECROSS which was then placed distally into the diagonal. The wire was removed and a small injection of contrast was taken through the FINECROSS showing a perforation. The FINECROSS was removed back to the lesion to see if it was still intraluminal but it appears there is a perforation at the takeoff of the diagonal. The FINECROSS was removed. Final angiogram shows no flow down the LAD and no current flow into the area of perforation. Contrast that had extravasated into the perforation does not appear to be clearing at this time. STAT echo was done and showed a trace pericardial effusion. Because the patient had chest pain throughout the procedure he was started on a nitroglycerin drip and this was continued. Because of the recent stenting and no apparent extravasation further into the pericardial space, the patient was given his Plavix and it was not felt that his heparin needed to be reversed at this time. Th guide was removed. The sheath was sutured in place with a plan to remove once the ACT values were appropriate. The patient left the slab off mill tender in a critical but stable position. FINDINGS LEFT MAIN: Distal 20%. LAD: 100% occlusion in the proximal portion. LEFT CIRCUMFLEX: Normal-sized vessel with an 80% lesion in the obtuse marginal which supplies large amount of collaterals to the right coronary artery COUNTY CORONER. IMPRESSIONS 1. Unstable angina ([place] Angina class IV) 2. Multivessel coronary artery disease with an inability to do coronary artery bypass grafting. 3. Status post Austin drug-eluting stent (2.75 x 15) to obtuse marginal. 4. COUNTY CORONER of LAD with unsuccessful revascularization and perforation of the diagonal. RECOMMENDATIONS 1. Mr. Swartz underwent stenting of his obtuse marginal and will be placed on aspirin and Plavix therapy. 2. He had evidence of perforation of his diagonal during attempt at COUNTY CORONER of his LAD. Currently it does not appear to be clearing and echo shows a trace pericardial effusion. We will most likely repeat echocardiogram in the morning for further evaluation of this. 3. He will continue on a nitroglycerin drip. 4. We will plan on him going to the intensive care unit for further observation. 5. We will attempt to wean him as possible off nitroglycerin to medical therapy as best as possible. 6. Further recommendations will be made based on the hospital course. The case was discussed with the critical care team as well as the family. Thank you for allowing me to see Francisco Javier Swartz. If there are any questions please do not hesitate to call. Harmeet Celaya DO VGP/SSB /1:19 AM /6:42 AM MTDShaniqua
[2017-05-28] MEDS: NS 1000P @30 MLS/HR (KVO) IV SCH (07:30)
[2017-05-28] MEDS: LOW DOSE INSULIN NOVOLOG SUPPLEMENTAL SCALE SQ SCH ×2 (08:00→12:00)
[2017-05-28 08:32] LABS: AUTOMATED NEUTROPHIL # 14.5 TH/MM3 (1.8-7.7); BASOPHIL # 0.1 TH/MM3 (0-0.2); BASOPHIL % 0.3 % (0.0-2.0); EOSINOPHIL % 0.2 % (0.0-4.0); HEMATOCRIT 24.1 % (39.0-51.0); LYMPH % 5.7 % (9.0-44.0); MEAN CELL VOLUME 89.3 FL (80.0-100.0); MEAN CORPUSCULAR HEMOGLOBIN 30.3 PG (27.0-34.0); MEAN CORPUSCULAR HGB CONC 33.9 % (32.0-36.0); MONO % 12.6 % (0.0-8.0); NEUT % 81.2 % (16.0-70.0); PLATELET COUNT 345 TH/MM3 (150-450); RED CELL DISTRIBUTION WIDTH 13.5 % (11.6-17.2); WHITE BLOOD COUNT 17.9 TH/MM3 (4.0-11.0)
[2017-05-28 08:35] LABS: HEMO FLAGS AUTO DIFF
[2017-05-28] MEDS: SODIUM CHLORIDE 0.9% FLUSH 10 ML FLUSH IV FLUSH SCH (08:58)
[2017-05-28] MEDS: SERTRALINE HCL 50 MG TAB PO SCH (08:59)
[2017-05-28] MEDS: FUROSEMIDE 40 MG/4 ML VIAL IV PUSH SCH (08:59)
[2017-05-28] MEDS: POTASSIUM CHLORIDE 10 MEQ CONTROLLED RELEASE TAB PO SCH (08:59)
[2017-05-28] MEDS: CLOPIDOGREL 75 MG TAB PO SCH (09:00)
[2017-05-28] MEDS: ASPIRIN 81 MG CHEW TAB PO SCH (09:00)
[2017-05-28] MEDS: GABAPENTIN 300 MG CAP PO SCH ×2 (09:00→13:00)
[2017-05-28] MEDS: ALPRAZolam 0.5 MG TAB PO PRN (09:14)
[2017-05-28 09:25] LABS: PLATELET ESTIMATE SMEAR NORMAL (NORMAL); PLATELET MORPHOLOGY NORMAL (NORMAL); SCAN/DIFF AUTO DIFF CONFIRMED
[2017-05-28 10:03] LABS: BLOOD GAS BASE EXCESS -4.1 mmol/L (-2-2); BLOOD GAS CARBOXYHEMOGLOBIN 1.3 % (0-4); BLOOD GAS HCO3 20 mmol/L (22-26); BLOOD GAS METHEMOGLOBIN 0.6 % (0-2); BLOOD GAS O2 HGB SATURATION 97 % (90-100); BLOOD GAS PCO2 32 mmHg (38-42); BLOOD GAS PO2 150 mmHg (61-120); BLOOD GAS TOTAL HGB 10.8 G/DL (12.0-16.0); CRITICAL VALUE NO; DRAW SITE RT RADIAL; LITER FLOW 4 L/M; NUMBER OF ARTERIAL PUNCTURES 2; OXYGEN DEVICE NASAL CANNULA; STAT YES; TEMP CORR TO 98.6; ULNAR PULSE PRESENT
[2017-05-28] MEDS ORDERED: ETOMIDATE 40 MG/20 ML VIAL ONE (10:30)
[2017-05-28] MEDS ORDERED: SUCCINYLCHOLINE CHLORIDE 200 MG/10 ML VIAL ONE (10:31)
[2017-05-28] MEDS ORDERED: MIDAZOLAM HCL 5 MG/ML VIAL (1 ML) ONE (10:59)
[2017-05-28] MEDS ORDERED: MIDAZOLAM HCL 2 MG/2 ML VIAL IV PUSH ONE (11:00)
--- NOTE | 2017-05-28 11:28 | PD.PROCEDR ---
Procedure Note Procedure CPR procedure note: PEA Arrest: CPR initiated at 10:30. 2 Amps of epi, 2 Amps of bicarbonate, 1 amp of calcium and 1 L normal saline bolus given. Patient was intubated and placed on mechanical ventilation. Return of spontaneous circulation at 1037. Placed on epinephrine infusion and titrated up to 10 mcg/m. Kevin-Synephrine titrated up to 200 mcg/m. Ayden Wyman MD May 28, 2017 11:28
--- NOTE | 2017-05-28 11:29 | HHI.CCPN ---
Subjective Remarks/Hospital Course The patient is a 67-year-old male with past medical history of coronary artery disease, peripheral vascular disease, atrial fibrillation, prostate cancer, CVA , history of lung cancer status post left pneumonectomy in May 2016. He was admitted to [facility] on May 22, [address] Escoto's service for unstable angina. He underwent cardiac catheterization yesterday which showed multivessel coronary artery disease with 99% occluded LAD, 90% diagonal disease and 100% occluded RCA. Cardiothoracic surgery was consulted for evaluation of CABG. The patient was seen by Dr. Kyle who recommended off- pump CABG x3 with endoscopic harvesting. The patient underwent thoracotomy, however, coronary artery bypass could not be performed. The patient remained on mechanical ventilation and Critical Care Medicine was consulted for critical care management. 05/24: Up in chair, breathing comfortably. Some bronchospasm right side. Add Atrovent. Patient gets quite tachycardic on beta agonists apparently. Right lung well expanded. 05/25: anxious overnight. patient states that he gets anxious when he doesn't take his zoloft. this was restarted today. otherwise, denies complaints. HR slightly elevated at 92. chest tube with minimal serosanguinous output. 05/26: doing well. slightly hypotensive. plan for LHC with high risk PCI tomorrow. chest tubes d/c'd. 05/27: high risk pci attempted with coronary perforation. small pericardial effusion. LV EF acutely depressed. new chest pain. taken from lab pack chemist to ICU. on ntg and phenylephrine for coronary perfusion. I evaluated in ICU. chest pain slowly improving. good distal perfusion to extremities. 05/28: Patient started becoming more short of breath while sitting up in the chair. 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 Patient was placed back on the bed. His blood pressure continued to drop. While I was at the bedside patient suddenly became unresponsive, became bradycardic and developed PEA arrest. See CPR note. Patient received 2 amps of epinephrine, 2 amps of bicarbonate and calcium chloride 1 g. 1 L fluid boluses given. Return of spontaneous circulation after 7 minutes of CPR. I intubated and placed him on mechanical ventilation during CPR. Epinephrine started and titrated up to 10 mcg/m. Kevin-Synephrine increased to 200 mcg/m. LABS are pending at this time. I discussed with Dr. Escoto and Dr. Kyle. No interventional or surgical treatment can be offered at this time. Echo today showed very poor biventricular function EF in my review of approximately 15%, no tamponade on my review. I discussed with family they decided to make patient DNR. Due to pericardial effusion will hold off heparin Objective Vital Signs Date Time Temp Pulse Resp B/P (MAP) Pulse Ox O2 Delivery O2 Flow Rate FiO2 05/28/17 10:32 100 100 05/28/17 07:41 Nasal Cannula 4.00 05/28/17 07:40 93 05/28/17 07:38 98.0 16 106/60 (75) Intake and Output 05/28/17 05/28/17 05/29/17 08:00 16:00 00:00 Intake Total 1296 ml Output Total 450 ml Balance 846 ml Result Diagram: 05/28/17 0747 05/28/17 0447 Other Results Laboratory Tests Test 05/28/17 09:52 Blood Gas Puncture Site RT RADIAL Blood Gas Patient Temperature 98.6 Blood Gas HCO3 20 mmol/L (22-26) Blood Gas Base Excess -4.1 mmol/L (-2-2) Blood Gas Oxygen Saturation 97 % (90-100) Arterial Blood pH 7.41 (7.380-7.420) Arterial Blood Partial Pressure CO2 32 mmHg (38-42) Arterial Blood Partial Pressure O2 150 mmHg (61-120) Arterial Blood Oxygen Content 15.0 Vol % (12.0-20.0) Arterial Blood Carboxyhemoglobin 1.3 % (0-4) Arterial Blood Methemoglobin 0.6 % (0-2) Blood Gas Hemoglobin 10.8 G/DL (12.0-16.0) Oxygen Delivery Device NASAL CANNULA Blood Gas Liter Flow 4 L/M Objective Remarks PHYSICAL EXAMINATION GENERAL: A 67-year-old male, now unresponsive in PEA arrest HEENT: Pupils equal, round and reactive to light. Edentulous airway patent NECK: Supple. Trachea is shifted to left. Airway widely patent. CARDIOVASCULAR: No JVD. midline sternotomy with wound vac in place. PULMONARY: No breath sounds on the left. No crackles or wheezing on the right. Hypopnea ABDOMEN: Soft, nontender, no distention. EXTREMITIES: Positive peripheral cyanosis. new trace edema of the LEs. Well perfused. groin site without hematoma. NEUROLOGIC: Unresponsive now undergoing CPR A/P Assessment and Plan IMPRESSION: PEA arrest Refractory cardiogenic shock Acute respiratory failure ACS s/p high risk PCI 05/27/17: unsuccessful (Status post Geraldo drug-eluting stent ( 2.75 x 15) to obtuse marginal. 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 Coronary artery disease. Status post cardiac cath on May 22, 2017, which showed multivessel disease. Unstable angina. COPD. Previous left pneumonectomy May 2016. History of lung cancer. History of atrial fibrillation. Peripheral vascular disease. PLAN/RECOMMENDATIONS: 1. See CPR note. Currently on increasing dose of epinephrine and Kevni-Synephrine 2. Add dobutamine due to severely depressed LV and RV function 3. Intubated and placed on mechanical ventilation. PRVC/AC, vent bundle, as needed DuoNeb 4. Hold diuresis and beta blockers, and nitro due to shock 5. D/W Dr. Escoto and Dr. Kyle. No PCI or surgical revascularization can be offered at this time 6. Continue with aspirin 81 mg daily, Plavix 75 mg daily. No IV heparin due pericardial effusion and perforation of the diagonal 7. Monitor renal function, I's and O's, and electrolyte replacement per protocol. 8. heart healthy diet as tolerated. 9. SSI 10.GI prophylaxis with Protonix 40 mg daily and DVT prophylaxis with SCDs for now. Start Love nox 40 mg sq daily Overall impression: unstable post cardiac cath requiring vasopressors. no feasible options for coronary revascularization. Was managed conservatively. Now with acute PEA arrest. has end-stage heart disease now for which no treatment can be offered other than medical therapy. Condition very critical/ D /w Family, DNR status. prognosis poor Critical care time: 85 minutes, exclusive of procedures, and CPR. Ayden Wyman MD May 28, 2017 11:29
[2017-05-28] MEDS ORDERED: EPINEPHrine 2 MG/D5W 250 ML IV PRN ×2 (11:30)
[2017-05-28] MEDS ORDERED: MIDAZOLAM 100 MG/NS 100 ML DRIP Premix IV PRN (11:30)
--- NOTE | 2017-05-28 11:34 | PD.PROCEDR ---
Procedure Note Procedure INTUBATION: The patient was put in optimal position for the procedure. Rapid sequence intubation was initiated using no medications. DL with Mac 4 blade, grade 1 view, single attempt. The patient was intubated with a 8 cuffed endotracheal tube. Tube placement was confirmed by visualization of the tube and balloon passing through the cords, capnometry and subsequent chest x-ray. Breath sounds were equal and well aerated bilaterally postintubation. No breath sounds over stomach. Patient tolerated procedure well. Ayden Wyman MD May 28, 2017 11:34
--- NOTE | 2017-05-28 11:36 | PD.PROCEDR ---
Central Line Procedure REASON FOR PROCEDURE Central venous access PROCEDURE PERFORMED Central line placement: R femoral central line CONSENT Emergency procedure ANESTHESIA Local injection of 1% Lidocaine DESCRIPTION OF THE PROCEDURE The patient was placed in supine, mild Trendelenburg position. The area was exposed and cleansed with ChloraPrep, times two. Large sterile drape was used to cover the patient, with the site exposed, under sterile conditions including cap, face mask, sterile gown, and sterile gloves. On single attempt, the introducer needle was inserted with negative pressure in syringe and venous flash was obtained. The guide wire was then advanced without any restriction and the needle was removed. The dilator was used without any complications. Using Seldinger technique the 20 CM 7 F catheter was advanced over the guide wire to a depth of 19 centimeters. The guide wire was removed. All ports were aspirated with dark venous blood return and flushed easily with sterile saline. All ports were capped. Antibiotic disc was placed around central line at puncture site. The central line was secured to the skin with two interrupted 2.0 silk sutures. The area was bandaged with sterile see-through central line bandage. RADIOLOGICAL DATA Ultrasound guidance was used to locate RIJ. Doppler/color flow was used to confirm venous flow. COMPLICATIONS: No apparent complications ESTIMATED BLOOD LOSS: Less than 1 cc. Ayden Wyman MD May 28, 2017 11:36
--- NOTE | 2017-05-28 11:37 | RADRPT ---
EXAM DATE/TIME: 05/28/2017 11:15 [place] COMPARISON: CHEST SINGLE AP, May 24, 2017, 4:05. INDICATIONS : Post intubation and central line placement. MEDICAL HISTORY : Carcinoma, lung. Chronic obstructive pulmonary disease. SURGICAL HISTORY : Pneumonectomy. CABG. ENCOUNTER: Subsequent ACUITY: 1 day PAIN SCORE: Non-responsive. LOCATION: Bilateral chest FINDINGS: 2 portable frontal views of the chest show breathing motion artifact. There is complete opacification of the left hemithorax. The right lung has a diffuse mixed interstitial and intraalveolar opacity wh ich is a new finding. No effusion. The heart is obscured. Tip of endotracheal tube 1 cm cephalad to t he jonathan. Median sternotomy wires noted. Previously seen thoracostomy tubes are no longer present. N o pneumothorax seen. The gastric fundus is gas distended. CONCLUSION: 1. There is reportedly a central line. I see no central line on this study. 2. Tip of endotracheal tube 1 cm from the jonathan. 3. Worsening diffuse infiltrate within the right lung. 4. Persistent complete opacification of the left chest. Mohsen Vallejo Jr., MD on May 28, 2017 at 11:32 Board Certified Radiologist. This report was verified electronically.
[2017-05-28] MEDS ORDERED: DOBUTamine PREMIX DRIP 250 ML IV PRN (11:46)
[2017-05-28] MEDS ORDERED: MIDAZOLAM 100 MG/100 ML INJ 100 ML IV PRN (12:00)
[2017-05-28 12:06] LABS: BLOOD GAS BASE EXCESS -5.8 mmol/L (-2-2); BLOOD GAS CARBOXYHEMOGLOBIN 1.3 % (0-4); BLOOD GAS HCO3 19 mmol/L (22-26); BLOOD GAS METHEMOGLOBIN 0.9 % (0-2); BLOOD GAS O2 HGB SATURATION 98 % (90-100); BLOOD GAS OXYGEN CONTENT 11.5 Vol % (12.0-20.0); BLOOD GAS PCO2 39 mmHg (38-42); BLOOD GAS PO2 299 mmHg (61-120); BLOOD GAS TOTAL HGB 7.8 G/DL (12.0-16.0); CRITICAL VALUE NO; DRAW SITE RT RADIAL; FIO2 100 %; NUMBER OF ARTERIAL PUNCTURES 1; OXYGEN DEVICE VENTILATOR; TEMP CORR TO 98.6
[2017-05-28 12:07] LABS: STAT YES; ULNAR PULSE PRESENT
[2017-05-28 12:41] LABS: HEMATOCRIT 22.5 % (39.0-51.0); MEAN CELL VOLUME 92.8 FL (80.0-100.0); MEAN CORPUSCULAR HEMOGLOBIN 30.3 PG (27.0-34.0); MEAN CORPUSCULAR HGB CONC 32.7 % (32.0-36.0); PLATELET COUNT 312 TH/MM3 (150-450); RED BLOOD COUNT 2.43 MIL/MM3 (4.50-5.90); RED CELL DISTRIBUTION WIDTH 13.9 % (11.6-17.2); REVIEW FLAG FINAL; WHITE BLOOD COUNT 29.9 TH/MM3 (4.0-11.0)
[2017-05-28 13:00] LABS: ALKALINE PHOSPHATASE 86 U/L (45-117); ALT (GPT) 60 U/L (12-78); ANION GAP 17 MEQ/L (5-15); AST (GOT) 265 U/L (15-37); BICARBONATE 19.6 MEQ/L (21.0-32.0); BLOOD UREA NITROGEN 13 MG/DL (7-18); CHLORIDE 98 MEQ/L (98-107); GLOMERULAR FILTRATION RATE 53 ML/MIN (>89); MAGNESIUM 1.9 MG/DL (1.5-2.5); POTASSIUM 3.7 MEQ/L (3.5-5.1); SODIUM (NA) 135 MEQ/L (136-145); TOTAL BILIRUBIN ADULT 0.6 MG/DL (0.2-1.0)
--- NOTE | 2017-05-28 13:38 | PD.CARD.PN ---
Subjective Subjective Remarks Events earlier noted and discussed with Dr. Wyman Currently on multiple pressors Mild awake on the vent in pain Objective Medications Current Medications Medications (Trade) Dose Ordered Sig/Theron Route Start Time Stop Time Status Last Admin (Lipitor) 40 mg HS PO 05/22/17 21:00 05/27/17 20:24 (Neurontin) 300 mg TID PO 05/22/17 13:00 05/28/17 09:00 (NS Flush) 2 ml BID IV FLUSH 05/23/17 21:00 05/28/17 08:58 (NS Flush) 2 ml UNSCH PRN IV FLUSH 05/23/17 12:00 (Aspirin Chew) 81 mg DAILY PO 05/24/17 09:00 05/28/17 09:00 (Plavix) 75 mg DAILY PO 05/24/17 09:00 05/28/17 09:00 (Protonix) 40 mg DAILY@06 PO 05/24/17 06:00 05/28/17 05:59 (Tylenol) 650 mg Q4H PRN PO 05/23/17 12:00 05/26/17 06:25 (Zofran Inj) 4 mg Q6H PRN IV PUSH 05/23/17 12:00 (Apresoline Inj) 10 mg Q4H PRN IV PUSH 05/23/17 12:00 (Lopressor Inj) 2.5 mg Q1H PRN IV PUSH 05/23/17 12:00 05/25/17 07:53 (Atrovent Neb) 0.5 mg Q6HR NEB NEB 05/24/17 06:45 05/28/17 09:31 (D50w (Vial) Inj) 50 ml UNSCH PRN IV PUSH 05/24/17 17:00 (Glucagon Inj) 1 mg UNSCH PRN OTHER 05/24/17 17:00 (NovoLOG SUPPLEMENTAL SCALE) 1 ACHS SLIDING SCALE SQ 05/24/17 17:00 05/25/17 21:19 (Xanax) 0.5 mg Q8H PRN PO 05/25/17 04:30 05/28/17 09:14 (Atrovent Neb) 0.5 mg Q4HR NEB PRN NEB 05/25/17 04:30 (Zoloft) 50 mg DAILY PO 05/25/17 09:00 05/28/17 08:59 (Singulair) 10 mg HS PO 05/25/17 21:00 05/27/17 20:24 (KCl) 30 meq DAILY PO 05/27/17 09:00 05/28/17 08:59 (Morphine Inj) 2 mg Q30M PRN IV PUSH 05/27/17 12:15 05/27/17 20:22 (Atropine Inj) 0.5 mg UNSCH PRN IV PUSH 05/27/17 11:30 Phenylephrine HCl 40 mg/Dextrose 500 ml @ 30 mls/hr TITRATE PRN IV 05/27/17 14:00 05/28/17 00:20 (Brethine Inj) 1 mg UNSCH PRN SQ 05/27/17 13:15 Epinephrine HCl 2 mg/Dextrose 250 ml @ 37.5 mls/hr TITRATE PRN IV 05/28/17 11:30 Dobutamine HCl/ Dextrose 250 ml @ 12.75 mls/ hr [id number] PRN IV 05/28/17 11:46 (Peridex 0.12% Liq) 15 ml BID@08,20 MT 05/28/17 20:00 Midazolam HCl 100 ml @ 2 mls/hr TITRATE PRN IV 05/28/17 12:00 Vital Signs / I&O Vital Signs Date Time Temp Pulse Resp B/P (MAP) Pulse Ox O2 Delivery O2 Flow Rate FiO2 05/28/17 12:13 100 50 05/28/17 11:56 97.4 123 22 98/ 05/28/17 11:50 124 05/28/17 11:49 Mechanical Ventilator 100 05/28/17 11:00 50 05/28/17 10:32 100 100 05/28/17 07:41 95 Nasal Cannula 4.00 05/28/17 07:40 93 05/28/17 07:38 98.0 93 16 106/60 (75) 95 05/28/17 05:10 95 95/56 05/28/17 03:30 98.0 98 12 95/69 (78) 100 05/28/17 03:30 100 Nasal Cannula 3.00 05/28/17 03:30 97 05/28/17 00:20 104 91/57 05/27/17 23:55 12 05/27/17 23:51 12 05/27/17 23:36 97.9 99 11 93/56 (68) 96 05/27/17 23:36 96 Nasal Cannula 3.00 05/27/17 23:36 102 05/27/17 20:15 96 Nasal Cannula 3.00 05/27/17 19:00 93 Nasal Cannula 3.00 05/27/17 19:00 106 05/27/17 19:00 98.3 107 15 100/56 (71) 95 05/27/17 17:42 91 106/60 05/27/17 15:00 95 Nasal Cannula 6.00 05/27/17 15:00 97.7 101 12 104/64 (77) 95 05/27/17 15:00 101 05/27/17 15:00 104 I/O 05/27/17 05/27/17 05/27/17 05/28/17 05/28/17 05/28/17 07:00 15:00 23:00 07:00 15:00 23:00 Intake Total 340 ml 670.2 ml 1296 ml Output Total 400 ml 1350 ml 450 ml Balance -60 ml -679.8 ml 846 ml Intake Oral 340 ml 450 ml 480 ml IV Total 220.2 ml 816 ml Output Urine Total 400 ml 1350 ml 450 ml # Voids 2 # Bowel Movements 0 0 Physical Exam GENERAL: Intubated, in distress SKIN: Warm and dry. HEAD: Atraumatic. Normocephalic. EYES: Pupils equal and round. No scleral icterus. No injection or drainage. ENT: No nasal bleeding or discharge. Mucous membranes pink and moist. NECK: Trachea midline. No JVD. CARDIOVASCULAR: Regular rate and rhythm. Sternotomy RESPIRATORY: No accessory muscle use. Decreased breath sounds bilaterally GASTROINTESTINAL: Abdomen soft, non-tender, nondistended. Hepatic and splenic margins not palpable. MUSCULOSKELETAL: Extremities without clubbing, cyanosis, or edema. Left lower extremity mildly colder than the right NEUROLOGICAL: Intubated and mildly sedated Laboratory Laboratory Tests Test 05/28/17 04:47 05/28/17 07:47 05/28/17 09:52 05/28/17 11:57 Activated Partial Thromboplast Time 28.2 SEC Blood Urea Nitrogen 10 MG/DL Creatinine 0.44 MG/DL Random Glucose 136 MG/DL Calcium Level 7.9 MG/DL Sodium Level 137 MEQ/L Potassium Level 3.8 MEQ/L Chloride Level 100 MEQ/L Carbon Dioxide Level 28.3 MEQ/L Anion Gap 9 MEQ/L Estimat Glomerular Filtration Rate 193 ML/MIN White Blood Count 17.9 TH/MM3 Red Blood Count 2.70 MIL/MM3 Hemoglobin 8.2 GM/DL Hematocrit 24.1 % Mean Corpuscular Volume 89.3 FL Mean Corpuscular Hemoglobin 30.3 PG Mean Corpuscular Hemoglobin Concent 33.9 % Red Cell Distribution Width 13.5 % Platelet Count 345 TH/MM3 Mean Platelet Volume 8.1 FL Neutrophils (%) (Auto) 81.2 % Lymphocytes (%) (Auto) 5.7 % Monocytes (%) (Auto) 12.6 % Eosinophils (%) (Auto) 0.2 % Basophils (%) (Auto) 0.3 % Neutrophils # (Auto) 14.5 TH/MM3 Lymphocytes # (Auto) 1.0 TH/MM3 Monocytes # (Auto) 2.3 TH/MM3 Eosinophils # (Auto) 0.0 TH/MM3 Basophils # (Auto) 0.1 TH/MM3 CBC Comment AUTO DIFF Differential Comment AUTO DIFF CONFIRMED Platelet Estimate NORMAL Platelet Morphology Comment NORMAL Blood Gas Puncture Site RT RADIAL RT RADIAL Blood Gas Patient Temperature 98.6 98.6 Blood Gas HCO3 20 mmol/L 19 mmol/L Blood Gas Base Excess -4.1 mmol/L -5.8 mmol/L Blood Gas Oxygen Saturation 97 % 98 % Arterial Blood pH 7.41 7.31 Arterial Blood Partial Pressure CO2 32 mmHg 39 mmHg Arterial Blood Partial Pressure O2 150 mmHg 299 mmHg Arterial Blood Oxygen Content 15.0 Vol % 11.5 Vol % Arterial Blood Carboxyhemoglobin 1.3 % 1.3 % Arterial Blood Methemoglobin 0.6 % 0.9 % Blood Gas Hemoglobin 10.8 G/DL 7.8 G/DL Oxygen Delivery Device NASAL CANNULA VENTILATOR Blood Gas Liter Flow 4 L/M Blood Gas Ventilator Setting Blood Gas Inspired Oxygen 100 % Test 05/28/17 12:20 White Blood Count 29.9 TH/MM3 Red Blood Count 2.43 MIL/MM3 Hemoglobin 7.4 GM/DL Hematocrit 22.5 % Mean Corpuscular Volume 92.8 FL Mean Corpuscular Hemoglobin 30.3 PG Mean Corpuscular Hemoglobin Concent 32.7 % Red Cell Distribution Width 13.9 % Platelet Count 312 TH/MM3 Mean Platelet Volume 8.1 FL Blood Urea Nitrogen 13 MG/DL Creatinine 1.35 MG/DL Random Glucose 379 MG/DL Total Protein 5.2 GM/DL Albumin 1.9 GM/DL Calcium Level 8.0 MG/DL Magnesium Level 1.9 MG/DL Alkaline Phosphatase 86 U/L Aspartate Amino Transf (AST/SGOT) 265 U/L Alanine Aminotransferase (ALT/SGPT) 60 U/L Total Bilirubin 0.6 MG/DL Sodium Level 135 MEQ/L Potassium Level 3.7 MEQ/L Chloride Level 98 MEQ/L Carbon Dioxide Level 19.6 MEQ/L Anion Gap 17 MEQ/L Estimat Glomerular Filtration Rate 53 ML/MIN Lactic Acid Level 12.1 mmol/L Imaging Last 24 hours Impressions Chest X-Ray 05/28/17 0000 Signed Impressions: Service Date/Time: Sunday, May 28, 2017 11:15 - CONCLUSION: 1. There is reportedly a central line. I see no central line on this study. 2. Tip of endotracheal tube 1 cm from the jonathan. 3. Worsening diffuse infiltrate within the right lung. 4. Persistent complete opacification of the left chest. Mohsen Vallejo Jr., MD Assessment and Plan Problem List: (1) CAD (coronary artery disease) ICD Codes: I25.10 - Atherosclerotic heart disease of [place] coronary artery without angina pectoris (2) PAD (peripheral artery disease) ICD Codes: I73.9 - Peripheral vascular disease, unspecified Status: Chronic (3) Left thoracotomy, left pneumonectomy Status: Acute Assessment and Plan 1) CAD Unable to perform CABG PCI LCx with NIKHIL LAD with previous minimal flow now occluded, attempted to open but unable to Small perforation of diagonal, echo showing trace pericardial effusion 2) PEA arrest this morning 3) Intubated 4) Discussed with the family about options Made DNR They state that he would not want to be further resuscitated and further more would not want to be like his current state They understand with his current comorbidities that chances are he will not be able to leave the hospital They ask that palliative care see the patient and would like consideration of comfort care so he's no longer in pain Discussed with Dr. Lynne from palliative care over the phone about the case, will see Harmeet Escoto DO May 28, 2017 13:38
--- NOTE | 2017-05-28 14:16 | PD.CAR.PN ---
CVT Progress Note Subjective/Hospital Course: 67-year-old male with past medical history of coronary artery disease, peripheral vascular disease, atrial fibrillation, prostate cancer, CVA, history of lung cancer status post left pneumonectomy in May 2016. He was admitted to [facility] on May 22, [address] Escoto's service for unstable angina. He underwent cardiac catheterization yesterday which showed multivessel coronary artery disease with 99% occluded LAD, 90% diagonal disease and 100% occluded RCA. Cardiothoracic surgery was consulted for evaluation of CABG. The patient was seen by Dr. Kyle who recommended off-pump CABG x3 with endoscopic harvesting. The patient underwent thoracotomy, however, coronary artery bypass could not be performed. Friable ventricle and inability to expose target vessels 05/24/17 c/o left chest wall/incisional pain Left leg paresthesias 05/25/17 c/o anxiety, incisional pain Continues on heparin, plavix, asa. Oxygen requirement is increased this morning at 4 liters NC 05/26 Heparin gtt off since 4am, chest tube removed without difficulty nursing to remove left IJ CVC left chest wall incision intact and well approximated prevena dressing to chest on 2 liters nasal cannula continue pulm toileting BB on lower side, unable to start BB resume Heparin gtt in 4 hours / 05/27 PT for high risk PCI today + doppler pulses both feet did not sleep well last pm no chest pain 05/27 Dr Escoto : PCI LCx with NIKHIL, LAD with previous minimal flow now occluded, attempted to open but unable to Small perforation of diagonal, echo showing trace pericardial effusion 05/28 pt seen and eval this am , up in chair very tachypneic, pt immediately placed back in bed pale diaphoretic, Dr Cedillo at bedside , per Dr Cedillo note His blood pressure continued to drop, he became unresponsive, became bradycardic and developed PEA arrest. See CPR note. Patient received 2 amps of epinephrine, 2 amps of bicarbonate and calcium chloride 1 g. 1 L fluid boluses given. Return of spontaneous circulation after 7 minutes of CPR. He was I intubated and placed him on mechanical ventilation during CPR.vasopressors started per Dr. Kyle. No surgical treatment can be offered at this time. Echo today showed very poor biventricular function EF in my review of approximately 15%, no tamponade on my review. Dr Cedillo spoke with family and they have decided to make the patient a DNR , palliative care consulted Objective: GENERAL: in acute distress / prior to intubation SKIN: pale diaphoretic HEAD: Atraumatic. Normocephalic. EYES: Pupils equal and round. No scleral icterus. No injection or drainage. ENT: No nasal bleeding or discharge. Mucous membranes pink and moist. NECK: Trachea midline. No JVD. CARDIOVASCULAR: irregular rate and rhythm. RESPIRATORY: very tachypneic , use of accessory muscle use. insp exp wheezing GASTROINTESTINAL: Abdomen soft, non-tender, nondistended. Hepatic and splenic margins not palpable. MUSCULOSKELETAL: Extremities without clubbing, cyanosis, or edema. No obvious deformities. NEUROLOGICAL: Awake very anxious and alert. Vital Signs Date Time Temp Pulse Resp B/P (MAP) Pulse Ox O2 Delivery O2 Flow Rate FiO2 05/28/17 12:13 100 50 05/28/17 11:56 97.4 123 22 98/ 05/28/17 11:50 124 05/28/17 11:49 Mechanical Ventilator 100 05/28/17 11:00 50 05/28/17 10:32 100 100 05/28/17 07:41 95 Nasal Cannula 4.00 05/28/17 07:40 93 05/28/17 07:38 98.0 93 16 106/60 (75) 95 05/28/17 05:10 95 95/56 05/28/17 03:30 98.0 98 12 95/69 (78) 100 05/28/17 03:30 100 Nasal Cannula 3.00 05/28/17 03:30 97 05/28/17 00:20 104 91/57 05/27/17 23:55 12 05/27/17 23:51 12 05/27/17 23:36 97.9 99 11 93/56 (68) 96 05/27/17 23:36 96 Nasal Cannula 3.00 05/27/17 23:36 102 05/27/17 20:15 96 Nasal Cannula 3.00 05/27/17 19:00 93 Nasal Cannula 3.00 05/27/17 19:00 106 05/27/17 19:00 98.3 107 15 100/56 (71) 95 05/27/17 17:42 91 106/60 05/27/17 15:00 95 Nasal Cannula 6.00 05/27/17 15:00 97.7 101 12 104/64 (77) 95 05/27/17 15:00 101 05/27/17 15:00 104 Labs: Laboratory Tests Test 05/28/17 04:47 05/28/17 07:47 05/28/17 09:52 05/28/17 11:57 Activated Partial Thromboplast Time 28.2 SEC (24.3-30.1) Blood Urea Nitrogen 10 MG/DL (7-18) Creatinine 0.44 MG/DL (0.60-1.30) Random Glucose 136 MG/DL (74-106) Calcium Level 7.9 MG/DL (8.5-10.1) Sodium Level 137 MEQ/L (136-145) Potassium Level 3.8 MEQ/L (3.5-5.1) Chloride Level 100 MEQ/L (98-107) Carbon Dioxide Level 28.3 MEQ/L (21.0-32.0) Anion Gap 9 MEQ/L (5-15) Estimat Glomerular Filtration Rate 193 ML/MIN (>89) White Blood Count 17.9 TH/MM3 (4.0-11.0) Red Blood Count 2.70 MIL/MM3 (4.50-5.90) Hemoglobin 8.2 GM/DL (13.0-17.0) Hematocrit 24.1 % (39.0-51.0) Mean Corpuscular Volume 89.3 FL (80.0-100.0) Mean Corpuscular Hemoglobin 30.3 PG (27.0-34.0) Mean Corpuscular Hemoglobin Concent 33.9 % (32.0-36.0) Red Cell Distribution Width 13.5 % (11.6-17.2) Platelet Count 345 TH/MM3 (150-450) Mean Platelet Volume 8.1 FL (7.0-11.0) Neutrophils (%) (Auto) 81.2 % (16.0-70.0) Lymphocytes (%) (Auto) 5.7 % (9.0-44.0) Monocytes (%) (Auto) 12.6 % (0.0-8.0) Eosinophils (%) (Auto) 0.2 % (0.0-4.0) Basophils (%) (Auto) 0.3 % (0.0-2.0) Neutrophils # (Auto) 14.5 TH/MM3 (1.8-7.7) Lymphocytes # (Auto) 1.0 TH/MM3 (1.0-4.8) Monocytes # (Auto) 2.3 TH/MM3 (0-0.9) Eosinophils # (Auto) 0.0 TH/MM3 (0-0.4) Basophils # (Auto) 0.1 TH/MM3 (0-0.2) CBC Comment AUTO DIFF Differential Comment AUTO DIFF CONFIRMED Platelet Estimate NORMAL (NORMAL) Platelet Morphology Comment NORMAL (NORMAL) Blood Gas Puncture Site RT RADIAL RT RADIAL Blood Gas Patient Temperature 98.6 98.6 Blood Gas HCO3 20 mmol/L (22-26) 19 mmol/L (22-26) Blood Gas Base Excess -4.1 mmol/L (-2-2) -5.8 mmol/L (-2-2) Blood Gas Oxygen Saturation 97 % (90-100) 98 % (90-100) Arterial Blood pH 7.41 (7.380-7.420) 7.31 (7.380-7.420) Arterial Blood Partial Pressure CO2 32 mmHg (38-42) 39 mmHg (38-42) Arterial Blood Partial Pressure O2 150 mmHg (61-120) 299 mmHg (61-120) Arterial Blood Oxygen Content 15.0 Vol % (12.0-20.0) 11.5 Vol % (12.0-20.0) Arterial Blood Carboxyhemoglobin 1.3 % (0-4) 1.3 % (0-4) Arterial Blood Methemoglobin 0.6 % (0-2) 0.9 % (0-2) Blood Gas Hemoglobin 10.8 G/DL (12.0-16.0) 7.8 G/DL (12.0-16.0) Oxygen Delivery Device NASAL CANNULA VENTILATOR Blood Gas Liter Flow 4 L/M Blood Gas Ventilator Setting Blood Gas Inspired Oxygen 100 % Test 05/28/17 12:20 White Blood Count 29.9 TH/MM3 (4.0-11.0) Red Blood Count 2.43 MIL/MM3 (4.50-5.90) Hemoglobin 7.4 GM/DL (13.0-17.0) Hematocrit 22.5 % (39.0-51.0) Mean Corpuscular Volume 92.8 FL (80.0-100.0) Mean Corpuscular Hemoglobin 30.3 PG (27.0-34.0) Mean Corpuscular Hemoglobin Concent 32.7 % (32.0-36.0) Red Cell Distribution Width 13.9 % (11.6-17.2) Platelet Count 312 TH/MM3 (150-450) Mean Platelet Volume 8.1 FL (7.0-11.0) Blood Urea Nitrogen 13 MG/DL (7-18) Creatinine 1.35 MG/DL (0.60-1.30) Random Glucose 379 MG/DL (74-106) Total Protein 5.2 GM/DL (6.4-8.2) Albumin 1.9 GM/DL (3.4-5.0) Calcium Level 8.0 MG/DL (8.5-10.1) Magnesium Level 1.9 MG/DL (1.5-2.5) Alkaline Phosphatase 86 U/L (45-117) Aspartate Amino Transf (AST/SGOT) 265 U/L (15-37) Alanine Aminotransferase (ALT/SGPT) 60 U/L (12-78) Total Bilirubin 0.6 MG/DL (0.2-1.0) Sodium Level 135 MEQ/L (136-145) Potassium Level 3.7 MEQ/L (3.5-5.1) Chloride Level 98 MEQ/L (98-107) Carbon Dioxide Level 19.6 MEQ/L (21.0-32.0) Anion Gap 17 MEQ/L (5-15) Estimat Glomerular Filtration Rate 53 ML/MIN (>89) Lactic Acid Level 12.1 mmol/L (0.4-2.0) Total Creatine Kinase 1507 U/L (39-308) Troponin I 29.90 NG/ML (0.02-0.05) Result Diagram: 05/28/17 1220 05/28/17 1220 (1) CAD (coronary artery disease) Plan: s/p sternotomy and thoracotomy leave prevena dressing in place 7 days post op pulm toileting s/p PCI LCx with NIKHIL, LAD with previous minimal flow now occluded, attempted to open but unable to Small perforation of diagonal, echo showing trace pericardial effusion s/p PEA, intubation today / CPR / + ROSC now DNR status, palliative care consulted (2) PAD (peripheral artery disease) (3) Left thoracotomy, left pneumonectomy Alicia Morgan May 28, 2017 14:15
[2017-05-28] MEDS ORDERED: HYDROmorphone HCL PF 2 MG/ML VIAL IV PUSH ONE ×2 (15:15→15:30)
[2017-05-28] MEDS ORDERED: LORazepam 2 MG/ML VIAL IV PUSH ONE ×2 (15:15→15:30)
[2017-05-28] MEDS ORDERED: HYOSCYAMINE 0.125 MG TAB PO/SL ONE (15:15)
--- NOTE | 2017-05-28 15:44 | ECHRPT ---
Indication: CONCLUSIONS Mildly dilated left ventricle. Wall thickness is measured at the upper limits of normal. The left ventricular systolic function is severely reduced with an estimated ejection fraction in th e range of 20-25%. There is diffuse global hypokinesis with distinct regional wall motion abnormalities. The right ventricle is mildly dilated. The left atrial size is [id number] dilated. The right atrial size is moderately dilated. mild mitral valve regurgitation. Trace aortic valve regurgitation. There is mild to moderate tricuspid valve regurgitation. BP: 106 / 60 HR: 93 Rhythm: Sinus MEASUREMENTS (Male / Female) Normal Values Technical Quality:Fair 2D ECHO LV Diastolic Diameter PLAX 5.8 cm 4.2 - 5.9 / 3.9 - 5.3 cm LV Systolic Diameter PLAX 5.3 cm IVS Diastolic Thickness 0.9 cm 0.6 - 1.0 / 0.6 - 0.9 cm LVPW Diastolic Thickness 1.0 cm 0.6 - 1.0 / 0.6 - 0.9 cm LV Relative Wall Thickness 0.3 RV Internal Dim ED PLAX 3.6 cm LVOT Diameter 1.9 cm Aortic Root Diameter 2.6 cm M-MODE AV Cusp Separation MM 1.9 cm DOPPLER AV Peak Velocity 78.6 cm/s AV Peak Gradient 2.5 mmHg AV Mean Gradient 1.0 mmHg AV Velocity Time Integral 6.6 cm LVOT Peak Velocity 39.1 cm/s LVOT Peak Gradient 0.6 mmHg LVOT Velocity Time Integral 4.2 cm AV Area Cont Eq vti 1.8 cm AV Area Cont Eq pk 1.4 cm Mitral E Point Velocity 82.4 cm/s Mitral A Point Velocity 28.1 cm/s Mitral E to A Ratio 2.9 LV E' Lateral Velocity 8.1 cm/s Mitral E to LV E' Lateral Ratio 10.2 LV E' Septal Velocity 14.4 cm/s Mitral E to LV E' Septal Ratio 5.7 TR Peak Velocity 331.0 cm/s TR Peak Gradient 43.8 mmHg Right Atrial Pressure 10.0 mmHg Pulmonary Artery Systolic Pressu 53.8 mmHg Right Ventricular Systolic Press 53.8 mmHg FINDINGS LEFT VENTRICLE Mildly dilated left ventricle. Wall thickness is measured at the upper limits of normal. The left ventricular systolic function is severely reduced with an estimated ejection fraction in th e range of 20-25%. There is diffuse global hypokinesis with distinct regional wall motion abnormalities. RIGHT VENTRICLE The right ventricle is mildly dilated. LEFT ATRIUM The left atrial size is [id number] dilated. RIGHT ATRIUM The right atrial size is moderately dilated. ATRIAL SEPTUM Normal atrial septal thickness without atrial level shunting by limited color doppler interrogation. AORTA The aortic root and proximal ascending aorta are normal in size on limited imaging. MITRAL VALVE mild mitral valve regurgitation. AORTIC VALVE Trace aortic valve regurgitation. TRICUSPID VALVE There is mild to moderate tricuspid valve regurgitation. PULMONARY VALVE No pulmonary valve regurgitation or stenosis. VESSELS The inferior vena cava is normal in size. PERICARDIUM No pericardial effusion. Josh Lobo MD, FACC (Electronically Signed) Final Date:28 May 2017 15:43
[2017-05-28] MEDS ORDERED: LORazepam 2 MG/ML VIAL IV PUSH PRN ×3 (15:45)
[2017-05-28] MEDS ORDERED: BISACODYL 10 MG SUPP RECTAL PRN (15:45)
[2017-05-28] MEDS ORDERED: HYDROmorphone HCL PF 2 MG/ML VIAL IV PUSH PRN ×2 (15:45)
[2017-05-28] MEDS ORDERED: ACETAMINOPHEN 650 MG SUPP RECTAL PRN (15:45)
[2017-05-28] MEDS ORDERED: FUROSEMIDE 20 MG/2 ML VIAL IV PUSH PRN (15:45)
[2017-05-28] MEDS ORDERED: HYDROmorphone HCL PF 2 MG/ML VIAL IV PUSH SCH (16:00)
--- NOTE | 2017-05-28 16:17 | PD.CONS ---
Consult Service Palliative Care Consult Requested By Dr. Escoto Primary Care Physician No Primary Care Physician Reason for Consultation a. To assist with evaluation and management of symptoms including:dyspnea, anxiety, pain b. To assist medical decision maker(s) with: better understanding of current medical conditions; weighing benefits/burdens of medical treatment options; making medical treatment decisions. HPI History of Present Illness Mr. Francisco Javier Swartz is a 67-year-old with a past medical history of CAD, PAD, A. fib , COPD, CVA, lung cancer status post lobectomy 05/2016 who was having significant chest pain and angina which radiated to his jaw and left arm. Patient underwent cardiac catheterization on May 22, 2017 was found to have multivessel coronary artery disease with 99% occlusion LAD, left circumflex 80-90% lesion, and RCA 100% occlusion. Patient was recommended cardiothoracic surgery for CABG. Patient underwent thoracotomy however coronary artery bypass could not be performed. Patient remained on mechanical ventilation and critical medicine was consulted 05/23/2017. Patient became more stabilized and was extubated by the next day. Patient condition was complicated by anxiety, hypotension, and chest pain. PCI was attempted on 05/27 due to unstabel angina and multivessel cad. A stent was placed on the upper twos marginal artery, but revascularization of the LAD was unsuccessful and there is a small perforation of the diagonal. Patient was brought back to the intensive care. Unfortunately on 1121 patient's clinical condition decline, blood pressure begins to drop, patient became unresponsive and developed PEA. ACLS was initiated, patient required multiple pressors. Echo shows an EF of 15%. Family decided to make patient DNR. Dr. Escoto grips consulted palliative care On my visit patient is sedated and intubated on ventilator. Appears to have abdominal breathing there is no moaning or grimacing. Patient is not able to quantify or characterize pain, anxiety, shortness of breath due to clinical condition. I met with patient's Mrs. Jyoti Swartz. Mrs. Swartz endorse that patient has had debilitating pain, fatigue and dyspnea. He has multiple comorbidities and although he is independent of adls, he has suffered from pain , fatigue, dyspnea especially s/p thoracotomy. state he would have chest pain, and back pain. endorse he would get dyspneic with activity. Pt's endorse pt "would not want any of this." and ask for compassionate withdraw of life support. Pt's daughter who is also present during family meeting is supportive of decision. Family state that focus now should be on comfort measures, withdraw from life support, DNR. Reviewed with family what that will entailed, spoke about managment of symptoms of dyspnea, anxiety, and pain with comfort meds for compassionate withdraw. Amenable to comfort meds to maintain comfort. Amenable to hospice consult should pt survive the night s/p withdraw from ventilator. Function/Cognitive Trajectory Over the past year, indicate pt has severe back pain, chest pain, fatigue and dyspnea s/p thoracotmy. endorsehe is still independent of adls. Review of Systems ROS Limitations: Clinical Condition Constitutional: COMPLAINS OF: Fatigue Endocrine: DENIES: Heat/cold intolerance Eyes: DENIES: Diplopia, Eye inflammation Ears, nose, mouth, throat: DENIES: Hearing loss, Vertigo, Nasal discharge Respiratory: DENIES: Cough, Snoring Cardiovascular: COMPLAINS OF: Chest pain, Syncope, Dyspnea on Exertion, Lower Extremity Edema Gastrointestinal: DENIES: Black stools, Bloody stools, Nausea, Vomiting, Difficulty Swallowing Genitourinary: DENIES: Urinary frequency, Urinary incontinence Musculoskeletal: COMPLAINS OF: Joint Swelling Integumentary: DENIES: Abnormal pigmentation, Nail changes Hematologic/Lymphatics: DENIES: Lymphadenopathy Psychiatric: COMPLAINS OF: Anxiety (anxiouss while in hospital), DENIES: Confusion Past Family Social History Coded Allergies: albuterol (Verified Allergy, Severe, 05/22/17) rosuvastatin (Unverified Allergy, Severe, 02/18/17) Past Medical History CAD PVD A. fib Prostate cancer COPD Lung cancer CVA Past Surgical History Cardiac catheterization, mutliple Thoracotomy attempted CABG Colonoscopy Cystoscopy Reported Medications Pradaxa Lipitor Nitro Diclofenac [place] gabapentin zoloft omeprazole conenxyme q10 Current Medications Medications (Trade) Dose Ordered Sig/Theron Route Start Time Stop Time Status Last Admin (NS Flush) 2 ml BID IV FLUSH 05/23/17 21:00 05/28/17 08:58 (NS Flush) 2 ml UNSCH PRN IV FLUSH 05/23/17 12:00 (Peridex 0.12% Liq) 15 ml BID@08,20 MT 05/28/17 20:00 Midazolam HCl 100 ml @ 2 mls/hr TITRATE PRN IV 05/28/17 12:00 05/28/17 14:30 (Dilaudid Pf Inj) 0.75 mg ONCE ONCE IV PUSH 05/28/17 15:30 05/28/17 15:31 (Ativan Inj) 2 mg ONCE ONCE IV PUSH 05/28/17 15:30 05/28/17 15:31 (Dilaudid Pf Inj) 0.75 mg Q4HR IV PUSH 05/28/17 16:00 (Dilaudid Pf Inj) 0.75 mg Q30M PRN IV PUSH 05/28/17 15:45 (Dilaudid Pf Inj) 1 mg Q30M PRN IV PUSH 05/28/17 15:45 (Ativan Inj) 1 mg Q1H PRN IV PUSH 05/28/17 15:45 (Ativan Inj) 2 mg Q1H PRN IV PUSH 05/28/17 15:45 (Ativan Inj) 2 mg Q15M PRN IV PUSH 05/28/17 15:45 (Tylenol Supp) 650 mg Q4H PRN RECTAL 05/28/17 15:45 (Lasix Inj) 20 mg Q6H PRN IV PUSH 05/28/17 15:45 (Dulcolax Supp) 10 mg DAILY PRN RECTAL 05/28/17 15:45 Family History Denies sudden cardiac within family Substance Use Tobacco:1ppd Alcohol:occasional drink Prescription med abuse:no Illicits:no Psychosocial History From [facility]. Move to [place] when he was 14. for 48 years. 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 Spiritual/Cultural Factors Is a Uatsdin, but does not like organized yarsani. He is spiritual. Living Will: Completed, but not made available Family/friends goals: comfort measures only. Ethical and Legal Issues none Physical Exam Vital Signs Date Time Temp Pulse Resp B/P (MAP) Pulse Ox O2 Delivery O2 Flow Rate FiO2 05/28/17 14:28 123 88/52 05/28/17 14:26 122 88/52 05/28/17 12:13 100 50 05/28/17 11:56 97.4 123 22 98/ 05/28/17 11:50 124 05/28/17 11:49 Mechanical Ventilator 100 05/28/17 11:00 50 05/28/17 10:32 100 100 05/28/17 07:41 95 Nasal Cannula 4.00 05/28/17 07:40 93 05/28/17 07:38 98.0 93 16 106/60 (75) 95 05/28/17 05:10 95 95/56 05/28/17 03:30 98.0 98 12 95/69 (78) 100 05/28/17 03:30 100 Nasal Cannula 3.00 05/28/17 03:30 97 05/28/17 00:20 104 91/57 05/27/17 23:55 12 05/27/17 23:51 12 05/27/17 23:36 97.9 99 11 93/56 (68) 96 05/27/17 23:36 96 Nasal Cannula 3.00 05/27/17 23:36 102 05/27/17 20:15 96 Nasal Cannula 3.00 05/27/17 19:00 93 Nasal Cannula 3.00 05/27/17 19:00 106 05/27/17 19:00 98.3 107 15 100/56 (71) 95 05/27/17 17:42 91 106/60 Exam CONSTITUTIONAL/GENERAL: This is an adequately nourished patient, intubated and sedated TUBES/LINES/DRAINS:chest tube, central line, vaca. SKIN: . Ecchymoses on upper extremities. . Skin temperature appropriate. Not diaphoretic. HEAD: Atraumatic. Normocephalic. EYES: Pupils equal and round and reactive. Extraocular motions intact. No scleral icterus. No injection or drainage. Fundi not examined. ENT: . Nose without bleeding or purulent drainage. Throat intubated NECK: Trachea midline. Supple, nontender. No palpable thyroid enlargement or nodularity. CARDIOVASCULAR: Irregular without murmurs, gallops, or rubs. No JVD. RESPIRATORY/CHEST: Symmetric, abdominal breathing. faint rhonchi. GASTROINTESTINAL: Abdomen soft, distended. No guarding. Bowel sounds present. GENITOURINARY: Without palpable bladder distension. Vaca catheter in place. MUSCULOSKELETAL: Extremities without clubbing,2+ edema. LYMPHATICS: No palpable cervical or supraclavicular adenopathy. NEUROLOGICAL: sedated. PSYCHIATRIC:Could not examine, due to clinical condition. Diagnostic Tests Laboratory Laboratory Tests Test 05/25/17 18:20 05/26/17 04:00 05/27/17 04:34 05/27/17 04:36 Activated Partial Thromboplast Time 42.4 SEC (24.3-30.1) 43.4 SEC (24.3-30.1) White Blood Count 16.3 TH/MM3 (4.0-11.0) 16.4 TH/MM3 (4.0-11.0) Red Blood Count 2.95 MIL/MM3 (4.50-5.90) 3.27 MIL/MM3 (4.50-5.90) Hemoglobin 9.0 GM/DL (13.0-17.0) 9.8 GM/DL (13.0-17.0) Hematocrit 26.5 % (39.0-51.0) 29.6 % (39.0-51.0) Mean Corpuscular Volume 90.0 FL (80.0-100.0) 90.3 FL (80.0-100.0) Mean Corpuscular Hemoglobin 30.5 PG (27.0-34.0) 29.8 PG (27.0-34.0) Mean Corpuscular Hemoglobin Concent 33.9 % (32.0-36.0) 33.0 % (32.0-36.0) Red Cell Distribution Width 13.7 % (11.6-17.2) 13.5 % (11.6-17.2) Platelet Count 203 TH/MM3 (150-450) 297 TH/MM3 (150-450) Mean Platelet Volume 8.6 FL (7.0-11.0) 8.7 FL (7.0-11.0) Blood Urea Nitrogen 10 MG/DL (7-18) 10 MG/DL (7-18) Creatinine 0.51 MG/DL (0.60-1.30) 0.59 MG/DL (0.60-1.30) Random Glucose 107 MG/DL (74-106) 122 MG/DL (74-106) Calcium Level 8.0 MG/DL (8.5-10.1) 8.4 MG/DL (8.5-10.1) Sodium Level 140 MEQ/L (136-145) 136 MEQ/L (136-145) Potassium Level 3.9 MEQ/L (3.5-5.1) 3.8 MEQ/L (3.5-5.1) Chloride Level 106 MEQ/L (98-107) 102 MEQ/L (98-107) Carbon Dioxide Level 25.0 MEQ/L (21.0-32.0) 24.8 MEQ/L (21.0-32.0) Anion Gap 9 MEQ/L (5-15) 9 MEQ/L (5-15) Estimat Glomerular Filtration Rate 163 ML/MIN (>89) 138 ML/MIN (>89) Neutrophils (%) (Auto) 83.1 % (16.0-70.0) Lymphocytes (%) (Auto) 7.0 % (9.0-44.0) Monocytes (%) (Auto) 8.1 % (0.0-8.0) Eosinophils (%) (Auto) 1.1 % (0.0-4.0) Basophils (%) (Auto) 0.7 % (0.0-2.0) Neutrophils # (Auto) 13.6 TH/MM3 (1.8-7.7) Lymphocytes # (Auto) 1.2 TH/MM3 (1.0-4.8) Monocytes # (Auto) 1.3 TH/MM3 (0-0.9) Eosinophils # (Auto) 0.2 TH/MM3 (0-0.4) Basophils # (Auto) 0.1 TH/MM3 (0-0.2) CBC Comment DIFF FINAL Differential Comment Test 05/27/17 08:06 05/28/17 04:47 05/28/17 07:47 05/28/17 09:52 Activated Partial Thromboplast Time 39.2 SEC (24.3-30.1) 28.2 SEC (24.3-30.1) Blood Urea Nitrogen 10 MG/DL (7-18) Creatinine 0.44 MG/DL (0.60-1.30) Random Glucose 136 MG/DL (74-106) Calcium Level 7.9 MG/DL (8.5-10.1) Sodium Level 137 MEQ/L (136-145) Potassium Level 3.8 MEQ/L (3.5-5.1) Chloride Level 100 MEQ/L (98-107) Carbon Dioxide Level 28.3 MEQ/L (21.0-32.0) Anion Gap 9 MEQ/L (5-15) Estimat Glomerular Filtration Rate 193 ML/MIN (>89) White Blood Count 17.9 TH/MM3 (4.0-11.0) Red Blood Count 2.70 MIL/MM3 (4.50-5.90) Hemoglobin 8.2 GM/DL (13.0-17.0) Hematocrit 24.1 % (39.0-51.0) Mean Corpuscular Volume 89.3 FL (80.0-100.0) Mean Corpuscular Hemoglobin 30.3 PG (27.0-34.0) Mean Corpuscular Hemoglobin Concent 33.9 % (32.0-36.0) Red Cell Distribution Width 13.5 % (11.6-17.2) Platelet Count 345 TH/MM3 (150-450) Mean Platelet Volume 8.1 FL (7.0-11.0) Neutrophils (%) (Auto) 81.2 % (16.0-70.0) Lymphocytes (%) (Auto) 5.7 % (9.0-44.0) Monocytes (%) (Auto) 12.6 % (0.0-8.0) Eosinophils (%) (Auto) 0.2 % (0.0-4.0) Basophils (%) (Auto) 0.3 % (0.0-2.0) Neutrophils # (Auto) 14.5 TH/MM3 (1.8-7.7) Lymphocytes # (Auto) 1.0 TH/MM3 (1.0-4.8) Monocytes # (Auto) 2.3 TH/MM3 (0-0.9) Eosinophils # (Auto) 0.0 TH/MM3 (0-0.4) Basophils # (Auto) 0.1 TH/MM3 (0-0.2) CBC Comment AUTO DIFF Differential Comment AUTO DIFF CONFIRMED Platelet Estimate NORMAL (NORMAL) Platelet Morphology Comment NORMAL (NORMAL) Blood Gas Puncture Site RT RADIAL Blood Gas Patient Temperature 98.6 Blood Gas HCO3 20 mmol/L (22-26) Blood Gas Base Excess -4.1 mmol/L (-2-2) Blood Gas Oxygen Saturation 97 % (90-100) Arterial Blood pH 7.41 (7.380-7.420) Arterial Blood Partial Pressure CO2 32 mmHg (38-42) Arterial Blood Partial Pressure O2 150 mmHg (61-120) Arterial Blood Oxygen Content 15.0 Vol % (12.0-20.0) Arterial Blood Carboxyhemoglobin 1.3 % (0-4) Arterial Blood Methemoglobin 0.6 % (0-2) Blood Gas Hemoglobin 10.8 G/DL (12.0-16.0) Oxygen Delivery Device NASAL CANNULA Blood Gas Liter Flow 4 L/M Test 05/28/17 11:57 05/28/17 12:20 Blood Gas Puncture Site RT RADIAL Blood Gas Patient Temperature 98.6 Blood Gas HCO3 19 mmol/L (22-26) Blood Gas Base Excess -5.8 mmol/L (-2-2) Blood Gas Oxygen Saturation 98 % (90-100) Arterial Blood pH 7.31 (7.380-7.420) Arterial Blood Partial Pressure CO2 39 mmHg (38-42) Arterial Blood Partial Pressure O2 299 mmHg (61-120) Arterial Blood Oxygen Content 11.5 Vol % (12.0-20.0) Arterial Blood Carboxyhemoglobin 1.3 % (0-4) Arterial Blood Methemoglobin 0.9 % (0-2) Blood Gas Hemoglobin 7.8 G/DL (12.0-16.0) Oxygen Delivery Device VENTILATOR Blood Gas Ventilator Setting Blood Gas Inspired Oxygen 100 % White Blood Count 29.9 TH/MM3 (4.0-11.0) Red Blood Count 2.43 MIL/MM3 (4.50-5.90) Hemoglobin 7.4 GM/DL (13.0-17.0) Hematocrit 22.5 % (39.0-51.0) Mean Corpuscular Volume 92.8 FL (80.0-100.0) Mean Corpuscular Hemoglobin 30.3 PG (27.0-34.0) Mean Corpuscular Hemoglobin Concent 32.7 % (32.0-36.0) Red Cell Distribution Width 13.9 % (11.6-17.2) Platelet Count 312 TH/MM3 (150-450) Mean Platelet Volume 8.1 FL (7.0-11.0) Blood Urea Nitrogen 13 MG/DL (7-18) Creatinine 1.35 MG/DL (0.60-1.30) Random Glucose 379 MG/DL (74-106) Total Protein 5.2 GM/DL (6.4-8.2) Albumin 1.9 GM/DL (3.4-5.0) Calcium Level 8.0 MG/DL (8.5-10.1) Magnesium Level 1.9 MG/DL (1.5-2.5) Alkaline Phosphatase 86 U/L (45-117) Aspartate Amino Transf (AST/SGOT) 265 U/L (15-37) Alanine Aminotransferase (ALT/SGPT) 60 U/L (12-78) Total Bilirubin 0.6 MG/DL (0.2-1.0) Sodium Level 135 MEQ/L (136-145) Potassium Level 3.7 MEQ/L (3.5-5.1) Chloride Level 98 MEQ/L (98-107) Carbon Dioxide Level 19.6 MEQ/L (21.0-32.0) Anion Gap 17 MEQ/L (5-15) Estimat Glomerular Filtration Rate 53 ML/MIN (>89) Lactic Acid Level 12.1 mmol/L (0.4-2.0) Total Creatine Kinase 1507 U/L (39-308) Creatine Kinase MB 185.0 NG/ML (0.5-3.6) Creatine Kinase MB % 12.3 % (0.0-4.0) Troponin I 29.90 NG/ML (0.02-0.05) Result Diagram: 05/28/17 1220 05/28/17 1220 Imaging Last Impressions Chest X-Ray 05/28/17 0000 Signed Impressions: Service Date/Time: Sunday, May 28, 2017 11:15 - CONCLUSION: 1. There is reportedly a central line. I see no central line on this study. 2. Tip of endotracheal tube 1 cm from the jonathan. 3. Worsening diffuse infiltrate within the right lung. 4. Persistent complete opacification of the left chest. Mohsen Vallejo Jr., MD Aorta w/Runoff CTA 05/24/17 0000 Signed Impressions: Service Date/Time: Wednesday, May 24, 2017 11:50 - CONCLUSION: Severe atherosclerotic disease is noted as described above. Please see above discussion. Nghia Alfaro MD Lower Extremity Ultrasound 05/22/17 0000 Signed Impressions: Service Date/Time: May 15:38 - CONCLUSION: 1. Vein mapping as above. Napoleon Youssef MD Carotid Artery Ultrasound 05/22/17 0000 Signed Impressions: Service Date/Time: May 15:58 - CONCLUSION: 1. Calcified atherosclerotic plaquing at the bifurcations. 2. Velocities would suggest possible stenosis on the right in the range of 50%%. 3. No hemodynamically significant lesion identified on the left. Napoleon Youssef MD Patient/Family Conference Present at Family Conference: Patient's Jyoti Swartz, daughter, granddaughter and various family members. Family Conference Time (mins): 60 Family Conference Location: Bedside, Hallway Issues Discussed: * Palliative care role, purpose, approach * Additional medical, psychosocial, and spiritual history * Patients general health, functional status, and cognitive changes in the months leading up to the current hospitalization * Patient/family understanding of the current medical problems * Patient/family understanding of prognosis * Patients goals of care as best understood from advance directives and/or conversations and/or values * Current medical treatment options and benefits/burdens of those options * Likely scenarios comparing ongoing aggressive care with a transition to comfort measures only * Questions answered to the best of my ability * Palliative care contact information provided Assessment and Plan Disease Oriented Problem List: (1) CAD (coronary artery disease) (2) Hypotension Comment: multiple pressors. (3) Lung cancer (4) COPD (chronic obstructive pulmonary disease) (5) s/p aborted CABG (6) PAD (peripheral artery disease) (7) Hypokalemia (8) General weakness (9) Renal failure Symptom Scale: (1) Anxiety 0-10 Scale: Unable to quantify Comment: hx of anxiety. vent withdraw. amenable to comfort meds. (2) Pain 0-10 Scale: Unable to quantify Comment: chronic back pain, and chest pain vent withdraw (3) Dyspnea 0-10 Scale: Unable to quantify Comment: copd, lung cancer, thoracotomy. 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 Spiritual:Uatsdin, not episcopalian, but amenable for pastoral/Sasser visit Legal: Living will has been lost per family. Proxy is . Ethical issues impacting care:no Important Contacts [phone] Prognosis ES cardiac disease. PEA, EF 15% on multiple pressors, respiratory failure. Poor prognosis. Code Status: No Code Plan == capacity- no capacity to make medical decisions.Will not regain capacity. PEA. hyptensive on multiple pressors. == medical decision maker. Proxy would be pt's Jyoti Swartz. ==GOC.I met with patient's Mrs. Jyoti Swartz. Mrs. Swartz endorse that patient has had debilitating pain, fatigue and dyspnea. He has multiple comorbidities and although he is independent of adls, he has suffered from pain , fatigue, dyspnea especially s/p thoracotomy. state he would have chest pain, and back pain. endorse he would get dyspneic with activity. Pt's endorse pt "would not want any of this." and ask for compassionate withdraw of life support. Pt's daughter who is also present during family meeting is supportive of decision. Family state that focus now should be on comfort measures, withdraw from life support, DNR. Amenable to hospice if pt should survive the night after compassionate withdraw from ventilator. == pain- chest pain, chronic back pain. Dilaudid prn available. == dyspnea- copd/ lung cancer, respiratory failure. Dilaudid prn will be available. == anxiety- associated with pain, dyspnea, and has hx of anxiety. Ativan will be available. Vent withdraw orders initated. Exhibits B and C completed. == palliative care will continue to follow for symptom managment. Thank you for the opportunity to participate in the care of Mr. Swartz. Attestation To help prompt me to consider important information that might be impacting today's encounter and assessment, information from prior notes written by myself or my colleagues may have been "brought forward" into today's note. My signature on this note, however, is an attestation that I personally performed the exam, history, and/or decision-making noted today, and, unless otherwise indicated, the interactions with patient, family, and staff as well as the review of records all occurred today. I also attest that the listed assessment and stated plan reflect my best clinical judgment today based on the combination of historical information, prior notes, and today's exam/ interactions. When time spent is documented, it refers only to time spent today by the signer, or if indicated, combined time spent today by collaborating physician/nurse practitioner. Charanjit Lynne MD May 28, 2017 16:17
[2017-05-28] MEDS ORDERED: CALCIUM CHLORIDE 10% SOLN 1 GRAM/10 ML SYR IV ONE (16:53)
[2017-05-28] MEDS ORDERED: EPINEPHrine HCL (1:10,000) 1 MG/10 ML SYRINGE IV ONE (16:53)
[2017-05-28] MEDS ORDERED: EPINEPHrine HCL (1:1000) 30 MG/30 ML VIAL IV ONE (16:53)
[2017-05-28] MEDS ORDERED: SODIUM BICARBONATE 8.4% INJ 50 MEQ/50 ML SYR IV ONE (16:53)
--- NOTE | 2017-05-28 17:56 | DEATH SUM ---
Summary Demographics Date Pronounced : May 28, 2017 Time Of : 1618 Pronounced By: jeff olivares Preliminary Cause of : Cardiac arrest Ayden Wyman MD May 28, 2017 17:56
--- NOTE | 2017-05-28 18:05 | HHI.DS ---
Summary Note Date of : May 28, 2017 Time Of : 1618 Admission Date May 22, 2017 at 11:02 Admitting Diagnosis Diagnosis at Time of : (1) PEA (Pulseless electrical activity) ICD Code: I46.9 - Cardiac arrest, cause unspecified Diagnosis: Principal (2) Cardiogenic shock ICD Code: R57.0 - Cardiogenic shock Diagnosis: Principal (3) Acute respiratory failure ICD Code: J96.00 - Acute respiratory failure, unspecified whether with hypoxia or hypercapnia Diagnosis: Principal (4) ACS (acute coronary syndrome) ICD Code: I24.9 - Acute ischemic heart disease, unspecified Diagnosis: Principal (5) Diagonal artery rupture Diagnosis: Principal (6) s/p aborted CABG Diagnosis: Principal (7) Renal failure ICD Code: N19 - Unspecified kidney failure Diagnosis: Principal (8) Lung cancer ICD Code: C34.90 - Malignant neoplasm of unspecified part of unspecified bronchus or lung Diagnosis: Secondary (9) PAD (peripheral artery disease) ICD Code: I73.9 - Peripheral vascular disease, unspecified Diagnosis: Secondary (10) COPD (chronic obstructive pulmonary disease) ICD Code: J44.9 - Chronic obstructive pulmonary disease, unspecified Diagnosis: Secondary (11) Left thoracotomy, left pneumonectomy Diagnosis: Secondary (12) CAD (coronary artery disease) ICD Code: I25.10 - Atherosclerotic heart disease of [place] coronary artery without angina pectoris Diagnosis: Secondary (13) Atrial fibrillation with RVR ICD Code: I48.91 - Unspecified atrial fibrillation Diagnosis: Secondary (14) Squamous cell carcinoma of lip ICD Code: C44.02 - Squamous cell carcinoma of skin of lip Diagnosis: Secondary (15) Moderate protein-calorie malnutrition ICD Code: E44.0 - Moderate protein-calorie malnutrition Diagnosis: Secondary (16) 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 He was admitted to [facility] on May 22, [address] Escoto's service for unstable angina. He underwent cardiac catheterization which showed multivessel coronary artery disease with 99% occluded LAD, 90% diagonal disease and 100% occluded RCA. Cardiothoracic surgery was consulted for evaluation of CABG. The patient was seen by Dr. Kyle who recommended off- pump CABG x3 with endoscopic harvesting. The patient underwent thoracotomy, however, coronary artery bypass could not be performed. The patient remained on mechanical ventilation and Critical Care Medicine was consulted for critical care management. CBC/BMP: 05/28/17 1220 05/28/17 1220 Significant Findings Laboratory Tests Test 05/25/17 18:20 05/26/17 04:00 05/27/17 04:34 05/27/17 04:36 Activated Partial Thromboplast Time 42.4 SEC (24.3-30.1) 43.4 SEC (24.3-30.1) White Blood Count 16.3 TH/MM3 (4.0-11.0) 16.4 TH/MM3 (4.0-11.0) Red Blood Count 2.95 MIL/MM3 (4.50-5.90) 3.27 MIL/MM3 (4.50-5.90) Hemoglobin 9.0 GM/DL (13.0-17.0) 9.8 GM/DL (13.0-17.0) Hematocrit 26.5 % (39.0-51.0) 29.6 % (39.0-51.0) Creatinine 0.51 MG/DL (0.60-1.30) 0.59 MG/DL (0.60-1.30) Random Glucose 107 MG/DL (74-106) 122 MG/DL (74-106) Calcium Level 8.0 MG/DL (8.5-10.1) 8.4 MG/DL (8.5-10.1) Neutrophils (%) (Auto) 83.1 % (16.0-70.0) Lymphocytes (%) (Auto) 7.0 % (9.0-44.0) Monocytes (%) (Auto) 8.1 % (0.0-8.0) Neutrophils # (Auto) 13.6 TH/MM3 (1.8-7.7) Monocytes # (Auto) 1.3 TH/MM3 (0-0.9) Test 05/27/17 08:06 05/28/17 04:47 05/28/17 07:47 05/28/17 09:52 Activated Partial Thromboplast Time 39.2 SEC (24.3-30.1) Creatinine 0.44 MG/DL (0.60-1.30) Random Glucose 136 MG/DL (74-106) Calcium Level 7.9 MG/DL (8.5-10.1) White Blood Count 17.9 TH/MM3 (4.0-11.0) Red Blood Count 2.70 MIL/MM3 (4.50-5.90) Hemoglobin 8.2 GM/DL (13.0-17.0) Hematocrit 24.1 % (39.0-51.0) Neutrophils (%) (Auto) 81.2 % (16.0-70.0) Lymphocytes (%) (Auto) 5.7 % (9.0-44.0) Monocytes (%) (Auto) 12.6 % (0.0-8.0) Neutrophils # (Auto) 14.5 TH/MM3 (1.8-7.7) Monocytes # (Auto) 2.3 TH/MM3 (0-0.9) Blood Gas HCO3 20 mmol/L (22-26) Blood Gas Base Excess -4.1 mmol/L (-2-2) Arterial Blood Partial Pressure CO2 32 mmHg (38-42) Arterial Blood Partial Pressure O2 150 mmHg (61-120) Blood Gas Hemoglobin 10.8 G/DL (12.0-16.0) Test 05/28/17 11:57 05/28/17 12:20 Blood Gas HCO3 19 mmol/L (22-26) Blood Gas Base Excess -5.8 mmol/L (-2-2) Arterial Blood pH 7.31 (7.380-7.420) Arterial Blood Partial Pressure O2 299 mmHg (61-120) Arterial Blood Oxygen Content 11.5 Vol % (12.0-20.0) Blood Gas Hemoglobin 7.8 G/DL (12.0-16.0) White Blood Count 29.9 TH/MM3 (4.0-11.0) Red Blood Count 2.43 MIL/MM3 (4.50-5.90) Hemoglobin 7.4 GM/DL (13.0-17.0) Hematocrit 22.5 % (39.0-51.0) Creatinine 1.35 MG/DL (0.60-1.30) Random Glucose 379 MG/DL (74-106) Total Protein 5.2 GM/DL (6.4-8.2) Albumin 1.9 GM/DL (3.4-5.0) Calcium Level 8.0 MG/DL (8.5-10.1) Aspartate Amino Transf (AST/SGOT) 265 U/L (15-37) Sodium Level 135 MEQ/L (136-145) Carbon Dioxide Level 19.6 MEQ/L (21.0-32.0) Anion Gap 17 MEQ/L (5-15) Estimat Glomerular Filtration Rate 53 ML/MIN (>89) Lactic Acid Level 12.1 mmol/L (0.4-2.0) Total Creatine Kinase 1507 U/L (39-308) Creatine Kinase MB 185.0 NG/ML (0.5-3.6) Creatine Kinase MB % 12.3 % (0.0-4.0) Troponin I 29.90 NG/ML (0.02-0.05) Imaging See chart Hospital Course 67-year-old male with past medical history of coronary artery disease, peripheral vascular disease, atrial fibrillation, prostate cancer, CVA, history of lung cancer status post left pneumonectomy in May 2016. He was admitted to [facility] on May 22, [address] Escoto's service for unstable angina. He underwent cardiac catheterization yesterday which showed multivessel coronary artery disease with 99% occluded LAD, 90% diagonal disease and 100% occluded RCA. Cardiothoracic surgery was consulted for evaluation of CABG. The patient was seen by Dr. Kyle who recommended off-pump CABG x3 with endoscopic harvesting. The patient underwent thoracotomy, however, coronary artery bypass could not be performed. The patient remained on mechanical ventilation and Critical Care Medicine was consulted for critical care management. 05/24: Up in chair, breathing comfortably. Some bronchospasm right side. Add Atrovent. Patient gets quite tachycardic on beta agonists apparently. Right lung well expanded. 05/25: anxious overnight. patient states that he gets anxious when he doesn't take his zoloft. this was restarted today. otherwise, denies complaints. HR slightly elevated at 92. chest tube with minimal serosanguinous output. 05/26: doing well. slightly hypotensive. plan for [facility] with high risk PCI tomorrow. chest tubes d/c'd. 05/27: high risk pci attempted with coronary perforation. small pericardial effusion. LV EF acutely depressed. new chest pain. taken from microbiology lab manager to ICU. on ntg and phenylephrine for coronary perfusion. I evaluated in ICU. chest pain slowly improving. good distal perfusion to extremities. 05/28: Patient started becoming more short of breath while sitting up in the chair. EKG rhythm changes noted, on daytime babysitter. Patient was placed back on the bed. His blood pressure continued to drop. While I was at the bedside patient suddenly became unresponsive, became bradycardic and developed PEA arrest. See CPR note. Patient received 2 amps of epinephrine, 2 amps of bicarbonate and calcium chloride 1 g. 1 L fluid boluses given. Return of spontaneous circulation after 7 minutes of CPR. I intubated and placed him on mechanical ventilation during CPR. Epinephrine started and titrated up to 10 mcg/m. Kevin-Synephrine increased to 200 mcg/m. LABS are pending at this time. I discussed with Dr. Escoto and Dr. Kyle. No interventional or surgical treatment can be offered at this time. Echo today showed very poor biventricular function EF in my review of approximately 15%, no tamponade on my review. I discussed with family they decided to make patient DNR. Due to pericardial effusion will hold off heparin After discussion with and also multiple discussions with Dr. Escoto and Dr. Kyle palliative care was consulted. chose transition to comfort measures as the patient was hypotensive on maximum doses of epinephrine Kevin- Synephrine and also dobutamine. Patient was extubated and he comfortably at 1618 on May 28, 2017 Ayden Wyman MD May 28, 2017 18:05
[2017-05-28] MEDS ORDERED: CHLORHEXIDINE 0.12% (ORAL KIT) 15 ML CUP MT SCH (20:00)
== END 2017-05-28 16:54 | disposition expired | DRG 270 ==
LOC: HDOC 07:11 → HDIC 07:12 → HCPC 11:02 → HDOC 17:20 → HCPC 05-23 07:15 → HCVI 05-23 12:20 → HCPC 05-24 14:40 → HCVI 05-27 11:22 → N03B 05-27 12:55
PROVIDERS: ADMIT Thoracic Surgery (Cardiothoracic Vascular Surgery); ATTEND Thoracic Surgery (Cardiothoracic Vascular Surgery)
PROC: 4A023N7 Measurement of Cardiac Sampling and Pressure, Left Heart, Percutaneous Approach (ICD-10-PCS; 2017-05-22)
PROC: B2111ZZ Fluoroscopy of Multiple Coronary Arteries using Low Osmolar Contrast (ICD-10-PCS; 2017-05-22)
PROC: 06BQ4ZZ Excision of Left Saphenous Vein, Percutaneous Endoscopic Approach (ICD-10-PCS; 2017-05-23)
PROC: 02NN0ZZ Release Pericardium, Open Approach (ICD-10-PCS; principal; 2017-05-23 07:10)
PROC: 027034Z Dilation of Coronary Artery, One Artery with Drug-eluting Intraluminal Device, Percutaneous Approach (ICD-10-PCS; 2017-05-27)
PROC: 4A023N7 Measurement of Cardiac Sampling and Pressure, Left Heart, Percutaneous Approach (ICD-10-PCS; 2017-05-27)
PROC: B2111ZZ Fluoroscopy of Multiple Coronary Arteries using Low Osmolar Contrast (ICD-10-PCS; 2017-05-27)
PROC: 5A1935Z Respiratory Ventilation, Less than 24 Consecutive Hours (ICD-10-PCS; 2017-05-28)
PROC: 5A12012 Performance of Cardiac Output, Single, Manual (ICD-10-PCS; 2017-05-28)
PROC: 06HM33Z Insertion of Infusion Device into Right Femoral Vein, Percutaneous Approach (ICD-10-PCS; 2017-05-28)
PROC: 0BH17EZ Insertion of Endotracheal Airway into Trachea, Via Natural or Artificial Opening (ICD-10-PCS; 2017-05-28)
PROC: 3E043XZ Introduction of Vasopressor into Central Vein, Percutaneous Approach (ICD-10-PCS; 2017-05-28)
DX: I25.110 Atherosclerotic heart disease of native coronary artery with unstable angina pectoris (principal); J96.00 Acute respiratory failure, unspecified whether with hypoxia or hypercapnia; I77.2 Rupture of artery; E44.0 Moderate protein-calorie malnutrition; I31.0 Chronic adhesive pericarditis; I31.3 Pericardial effusion (noninflammatory); I25.82 Chronic total occlusion of coronary artery; I48.91 Unspecified atrial fibrillation; I27.20 Pulmonary hypertension, unspecified; F17.210 Nicotine dependence, cigarettes, uncomplicated; D50.0 Iron deficiency anemia secondary to blood loss (chronic); J98.11 Atelectasis; I97.51 Accidental puncture and laceration of a circulatory system organ or structure during a circulatory system procedure; I46.9 Cardiac arrest, cause unspecified; I73.9 Peripheral vascular disease, unspecified; J43.9 Emphysema, unspecified; I08.3 Combined rheumatic disorders of mitral, aortic and tricuspid valves; G89.29 Other chronic pain; M54.9 Dorsalgia, unspecified; F41.9 Anxiety disorder, unspecified; C44.02 Squamous cell carcinoma of skin of lip; Z66 Do not resuscitate; Z51.5 Encounter for palliative care; J98.01 Acute bronchospasm; E87.6 Hypokalemia; N19 Unspecified kidney failure; I49.3 Ventricular premature depolarization; Z86.73 Personal history of transient ischemic attack (TIA), and cerebral infarction without residual deficits; Z85.118 Personal history of other malignant neoplasm of bronchus and lung; Z90.2 Acquired absence of lung [part of]; Z86.79 Personal history of other diseases of the circulatory system; Z85.46 Personal history of malignant neoplasm of prostate; Y84.0 Cardiac catheterization as the cause of abnormal reaction of the patient, or of later complication, without mention of misadventure at the time of the procedure; Y92.234 Operating room of hospital as the place of occurrence of the external cause
CPT/HCPCS: 31500; 36430; 36600; 71010; 71020; 75635; 80048; 80053; 81001; 82550; 82552; 82805; 82948; 83036; 83605; 83735; 84484; 85002; 85025; 85027; 85610; 85730; 86850; 86900; 86901; 86920; 87641; 92928; 92950; 93005; 93306; 93308; 93454; 93458; 93880; 93922; 93970; 93998; 94002; 94010; 94150; 94640; 94664; C1725; C1751; C1760; C1769; C1874; C1887; C1893; G0269; J0131; J0171; J0330; J0461; J0690; J1170; J1250; J1644; J1815; J1885; J1940; J2060; J2250; J2270; J2370; J2440; J2720; J3010; J3370; J3475; J3480; J7030; J7060; J7644; P9016; P9045; Q9967